=== PATIENT | male | born 1970 | race Caucasian/White ===

== ENCOUNTER 2018-09-01 15:45 | Inpatient (IN) | payer OTHER ==
--- NOTE | 2018-09-01 16:03 | PDOC ---
Rapid Medical Evaluation Chief Complaint: Pain Time Seen by Provider: 09/01/18 15:52 Medical Evaluation: 09/01/18 16:01 I have performed a brief in person evaluation of this patient. The patient's CC: abd pain HPI: Pt has had abd pain since 08/12. He was recently dx with diverticulitis earlier this month. Pt also complains of dysuria. PE: Skin: Clear Heart: RRR Lungs: Clear MS. Moves all extremities without difficulty. Neuro: Alert and oriented Psch: appropriate affect Abd protocol ordered. The patient will proceed to main ED for further evaluation. Discharge Disposition - Diagnosis Abdominal pain Qualifiers: Abdominal location: left lower quadrant Qualified Code(s): R10.32 - Left lower quadrant pain - Referrals - Patient Instructions - Post Discharge Activity
--- NOTE | 2018-09-01 17:05 | PDOC ---
Attending Attestation - HPI HPI: 09/01/18 18:18 The patient is a 48 year old male with a PMH of diverticulitis who presents to the ED with abdominal pain for the past 3 weeks. The patient states the abdominal pain is mainly localized in the left lower quadrant, stabbing in nature, and intermittent. Patient states he was admitted at [facility] for diverticulitis and was discharged home recently. He also reports losing 15-20 lbs. over the past 3 weeks. Patient has had low appetite but has been tolerating PO intake. Denies any associated fevers or chills. Allergies: NKA Past surgical history: None reported. Social history: No reported cigarette use. Daily marijuana. Drinks alcohol daily. PCP: Dr. Hair - Physicial Exam PE: 09/01/18 18:19 ADULT EXAM GENERAL: Awake, alert, and fully oriented, in no acute distress ENT: Auricles normal inspection, hearing grossly normal, nares patent, oropharynx clear without exudates. Moist mucosa (+) Tongue fasciculations. LUNGS: Breath sounds equal, clear to auscultation bilaterally. No wheezes, and no crackles HEART: Regular rate and rhythm, normal S1 and S2, no murmurs, rubs or gallops ABDOMEN: Soft, nontender, normoactive bowel sounds. No guarding, no rebound. No masses EXTREMITIES: Normal range of motion, no edema. No clubbing or cyanosis. No cords, erythema, or tenderness NEUROLOGICAL: Cranial nerves II through XII grossly intact. Normal speech, normal gait SKIN: Warm, Dry, normal turgor, no rashes or lesions noted. <Kassy Sanches - Last Filed: 09/01/18 18:18> - Resident Resident Name: Xander Epsteinica - Medical Decision Making 09/11/18 09:34 Pt presents to the ED complaining of intermittent abdominal pain that has been persistent for greater than one month. Also complaining of weight loss. On exam, he has some mild diffuse abdominal tenderness and is showing signs of ETOH withdrawal. Differential includes diverticulitis with abscess, sepsis, thyroid storm. Will check labs, CT abdomen pelvis, treat for ETOH withdrawal. 09/11/18 09:42 <Rhona Storey - Last Filed: 09/11/18 09:46>
[2018-09-01 17:19] LABS: ALBUMIN 2.9 g/dl (3.4-5.0); ALK PHOS 146 U/L (45-117); ANION GAP 13 MMOL/L (8-16); BILIRUBIN,TOTAL 0.5 mg/dL (0.2-1); BLOOD UREA NITROGEN 11 mg/dL (7-18); CALCIUM 8.6 mg/dL (8.5-10.1); CHLORIDE 89 mmol/L (98-107); CO2 25 mmol/L (21-32); CREATININE 0.5 mg/dL (0.55-1.3); GLUCOSE,RANDOM 83 mg/dL (74-106); LIPASE 162 U/L (73-393); POTASSIUM 4.1 mmol/L (3.5-5.1); SGOT/AST 64 U/L (15-37); SGPT/ALT 55 U/L (13-61); SODIUM 128 mmol/L (136-145); TOT PROT 7.8 g/dl (6.4-8.2)
[2018-09-01 17:26] LABS: BASO % 0.5 % (0-2.0); EOS % 0.3 % (0-4.5); HEMATOCRIT 39.9 % (35.4-49); HEMOGLOBIN 13.9 GM/dL (11.7-16.9); LYMPH % 8.6 % (8-40); MCH 31.3 pg (25.7-33.7); MCHC 34.8 g/dl (32.0-35.9); MEAN CELL VOLUME 89.8 fl (80-96); MEAN PLT VOLUME 10.3 fl (7.5-11.1); MONO % 9.2 % (3.8-10.2); NEUT % 81.4 % (42.8-82.8); PLATELET COUNT 284 K/MM3 (134-434); RBC 4.44 M/mm3 (4.00-5.60); RDW 16.1 % (11.9-15.9); WHITE BLOOD COUNT 12.1 K/mm3 (4.0-10.0)
--- NOTE | 2018-09-01 17:45 | PDOC ---
History of Present Illness - General Chief Complaint: Pain Stated Complaint: SENT BY PCP Time Seen by Provider: 09/01/18 15:52 - History of Present Illness Initial Comments: 09/01/18 17:43 The patient is a 48 year old male with a PMH of diverticulitis who presents to our ED c/o 3 week h/o intermittent abdominal pain. Sister @ bedside assists in history. Pain is intermittent, stabbing, 2-3/10, localized to his LLQ. Denies associated fevers/chills. Tolerating PO intake, though decreased appetite 2/2 to his symptoms last meal with a chocolate milk protein drink this morning. Sister notes 15 pound weight loss over the last month. 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 H/o alcohol (beer and wine with dinner), daily marijuana, denies other toxic habits. Sister @ bedside interviewed separately notes patient has a h/o excessive alcohol consumption since his teenage years, 8 beers daily followed by shots, though he gives up shots for Lent and has no history of withdrawal seizures as far as she know. NKDA Social: reports wine/beer w/dinner 3x weekly, daily marijuana, former smoker 20 + years Surgical: none reported As per EMR, patient has not been evaluated in our ED on prior occasion. Past History - Past Medical History Allergies/Adverse Reactions: Allergies Allergy/AdvReac Type Severity Reaction Status Date / Time No Known Allergies Allergy Verified 09/01/18 16:10 COPD: No - Immunization History Immunization Up to Date: Yes - Suicide/Smoking/Psychosocial Hx Smoking History: Never smoked Have you smoked in the past 12 months: No Information on smoking cessation initiated: No Hx Alcohol Use: No Drug/Substance Use Hx: No Review of Systems - Review of Systems Constitutional: No: Chills, Fever HEENTM: No: Recent change in vision Respiratory: Yes: Shortness of Breath. No: Cough Cardiac (ROS): No: Chest Pain, Lightheadedness, Palpitations, Syncope ABD/GI: No: Constipated, Diarrhea, Nausea, Vomiting : No: Burning, Dysuria Neurological: Yes: Weakness Psychiatric: Yes: Anxiety *Physical Exam - Vital Signs Last Vital Signs Temp Pulse Resp BP Pulse Ox 98.6 F 135 H 20 122/91 96 09/01/18 16:03 09/01/18 16:03 09/01/18 16:03 09/01/18 16:03 09/01/18 16:03 - Physical Exam General Appearance: Yes: Nourished, Thin HEENT: positive: Normal Voice, Hearing Grossly Normal Neck: positive: Trachea midline, Normal Thyroid, Supple Respiratory/Chest: positive: Lungs Clear, Normal Breath Sounds Cardiovascular: positive: S1, S2, Tachycardia. negative: Edema, JVD, Murmur Vascular Pulses: Dorsalis-Pedis (R): 2+, Doralis-Pedis (L): 2+ Gastrointestinal/Abdominal: positive: Normal Bowel Sounds, Soft, Tenderness ( mild LLQ TTP on deep palpation). negative: Distended, Guarding, Rebound, Hernia Musculoskeletal: negative: CVA Tenderness (R), CVA Tenderness (L) Extremity: positive: Normal Capillary Refill, Normal Inspection Integumentary: positive: Normal Color, Dry, Warm Neurologic: positive: Fully Oriented, Alert Moderate Sedation - Procedure Monitoring Vital Signs: Procedure Monitoring Vital Signs Temperature 98.6 F 09/01/18 16:03 Pulse Rate 135 H 09/01/18 16:03 Respiratory Rate 20 09/01/18 16:03 Blood Pressure 122/91 09/01/18 16:03 O2 Sat by Pulse Oximetry (%) 96 09/01/18 16:03 Heart Score/ECG Review - ECG Impressions Comment:: 09/01/18 19:54 Sinus Tachycardia (HR 117) LVH w/o any MARIA L/STD/TWI, poor R wave progression V1- V6 ED Treatment Course - LABORATORY CBC & Chemistry Diagram: 09/01/18 16:16 09/01/18 16:16 - ADDITIONAL ORDERS Additional order review: Laboratory Results 09/01/18 16:16 Sodium 128 L Potassium 4.1 Chloride 89 L Carbon Dioxide 25 Anion Gap 13 BUN 11 Creatinine 0.5 L Creat Clearance w eGFR > 60 Random Glucose 83 Calcium 8.6 Total Bilirubin 0.5 AST 64 H ALT 55 Alkaline Phosphatase 146 H Total Protein 7.8 Albumin 2.9 L Lipase 162 09/01/18 16:16 RBC 4.44 MCV 89.8 MCHC 34.8 RDW 16.1 H MPV 10.3 Neutrophils % 81.4 Lymphocytes % 8.6 Monocytes % 9.2 Eosinophils % 0.3 Basophils % 0.5 Medical Decision Making - Medical Decision Making 09/01/18 18:55 48 year old male with abdominal pain, h/o diverticulitis w/bacteremia earlier this month. Tachycardic (HR 117) @ presentation, other VS unremarkable. PE shows tongue fasiculations. Will treat for presumptive alcohol withdrawal. Also consider Electroylte derangment, Dehydration, Thyroid Storm as etiology of tachycardia. For abdominal pain consider diverticulitis, gastritis, GERD, Will obtain belly labs in addition to abdominal CT (as patient has h/o recent complicated diverticulitis). Reassess. EKG non-ischemic as documented in EKG section of EMR 09/01/18 19:29 Leukocytosis (12.1) - likely reactive Mild hyponatremia - IV fluids hanging AST 64 Troponin (-) 09/01/18 19:55 Patient reassessed @ bedside Remains Tachycardic (110's) - IV fluids hanging 09/01/18 21:37 Case d/w Dr. Phipps - radiology, notes diverticulitis (+/-) abscess (fluid collections with air fluid levels + fat stranding). Will give G(-) and anaerobe coverage w/Metronizadole, Ceftriaxone. Hospitalist microblogged for admission. General surgery paged 09/01/18 21:51 Patient and patient's sister @ bedside counseled on plan of care. Tachycardia improving HR low 100's 09/01/18 22:18 Case d/w Dr. Boo. Will see patient in the morning. Requests NPO at midnight. CT abdomen/pelvis with PO contrast as inpatient. 09/01/18 22:25 Case d/w Dr. Payne (Resident) - accepts patient to hospitalist service. Night team (Drs. Kurtz, Sumit) aware of patient *DC/Admit/Observation/Transfer Diagnosis at time of Disposition: Abdominal pain Qualifiers: Abdominal location: left lower quadrant Qualified Code(s): R10.32 - Left lower quadrant pain - Referrals Referrals: Espinoza Hair [Primary Care Provider] - - Patient Instructions - Post Discharge Activity
[2018-09-01] MEDS ORDERED: chlordiazePOXIDE HCL 25 MG CAPSULE PO ONE (18:14)
[2018-09-01] MEDS ORDERED: SODIUM CHLORIDE 0.9% 500 ML INFUS.BAG IV ONE (18:15)
[2018-09-01] MEDS ORDERED: chlordiazePOXIDE HCL 25 MG CAPSULE ONE (18:47)
[2018-09-01] MEDS ORDERED: PIPERACILLIN/TAZOB 4.5 GM 4.5 GM in DEXTROSE 5%-WATER 100 ML IVPB ONE (21:39)
[2018-09-01] MEDS ORDERED: CEFTRIAXONE 2 GM/100 ML BAG IVPB ONE (22:12)
--- NOTE | 2018-09-01 22:31 | PN ---
Teaching Attending Note Name of Resident: Blaine Payne ATTENDING PHYSICIAN STATEMENT I saw and evaluated the patient. I reviewed the resident's note and discussed the case with the resident. I agree with the resident's findings and plan as documented. SUBJECTIVE: Seen and examined; please refer to resident note for further historical information. Briefly, this is a 48 y/o male presenting to the ER with abdominal pain that has been present for several weeks. Sent in by PCP. Recent admit to [place] for diverticulitis; records in the process of being obtained but we know that he had 2/2 bottles of Gram Negative Rods in his blood; he was on abx as documented in ER while he was inpt there and was DCd on PO though he doesn't know what. The pain he has today is the same he had while at [facility] earlier this month; he came in today as he is frustrated it hasn't gone away and has gradually worsened. He complains of dysuria and also endorses a 15lb weight loss over the last month. He is documented as being drinker; he tells me that he only drinks 3 days a week but the residents inform me his family member tells them that he drinks more than that. CT scan done in the ER shows sigmoid diverticultis with stranding and air-fluid collections suspicious for multiple abscesses due to perferation. ER called Dr. Boo and discussed the case; he will see the patient in the morning. He will be kept NPO, hydrated and given abx, placed on CIWA scale with IV Ativan, and monitored on the medicine service with surgical and ID consult (given the use of Zosyn). Somewhat poor historian. 10 sys ROS done and negative aside from HPI PMH and PSH reviewed FH asked and noncontributory Social history reviewed; per resident note Medications reviewed; reconciliation pending OBJECTIVE: VS, labs, imaging reviewed Labs show WBC 12 and Na 128; AST slightly elevated at 64, Alk Phos 146, TSH wnl , LA wnl, Lipase wnl. UA pending. CT results reviewed; shows multiple diverticula and thickened alls of the mid to distal sigmoid colon consistent with diverticulitis/colitis. Significant stranding of the fat is seen in R-hemipelvis with fluid. Multiple fluid like collections with air-fluid levels are present suspect for abscesses due to perforations. Also some small bowel visuals suspect for ileus is described. Thickening of the terminal ileum wall and thickened cecum and proximal ascending colon also noted. EKG reviewed ASSESSMENT AND PLAN: Patient presents with recurring acute complicated diverticulitis (due to mult abscess likely 2/2 perf); found to be hyponatremic and complains of dysuria. 1) Acute recurrent complicated diverticulitis -Evidenced by history, PE, labs, and imaging. -Initial leukocytosis with neutrophilia, +CT with abscess/perf. Recurrent episode. Consulting sgy; can eval for percutaneous drainag vs. alternative methods -IV Zosyn, consult ID -Will need OP GI referral for scope, etc. 2) Acute Hyponatremia -Check serum/urine osm, urine Na. Empirically on IVF; check BMP to ensure no rapid overcorrection. Assuming this is acute due to issues surrounding #1; followup labs. If worsening consider nephrology consult. 3) Gram Negative Bacteremia -Known from prior admit; getting old records with cx/sn. Continue with Zosyn and consulting ID. 3) Alcohol Abuse -IV thiamine/folate; CIWA protocol with IV Ativan -Outreach Liaison regarding cessation 4) Dysuria -UA pending; check cx 5) Thickened terminal ileum -On IV protonix; monitor for sx when advancing feeds after #1 taken care of 6) Mildly elevated AST -Likely 2/2 EtOH; followup CMP FENA -LR@100 -PRN replete -NPO -As tolerated Consults: Surgery, ID Full Code
[2018-09-01] MEDS ORDERED: SODIUM CHLORIDE 1,000 ML IV SCH (22:45)
--- NOTE | 2018-09-01 23:09 | HP ---
CHIEF COMPLAINT: abdominal pain, GI sent PCP: Dr. Hair (patient knows Dr. Aponte and requests to be placed on his service while admitted) HISTORY OF PRESENT ILLNESS: The patient is a 48 yo m w/ PMH diverticulitis (diagnosed 08/18/18) who comes into the ed c/o a 3 week hx abdominal pain. The patient describes a LLQ abdominal pain which is stabbing in nature, intermittent, and 3/10 in intensity. Patient endorses no alleviating or exacerbating factors. He has been tolerating PO intake with his last meal being a protein milk shake this morning. Despite this, the patient endorses decreased appetite and a 20 lb weight loss over the past 1 month. 2 weeks ago, the patient was seen at [facility] ER for similar complaints and was sent home, but was called back because there was "bacteria in his blood." He was admitted at that time and underwent an unknown abx course. He was discharged and followed up today with a preservationist, Dr. Sanchez, who sent him to the ED. Per patient's sister , he drinks approximately 8 beers and an unknown number of shots daily. Patient states that he has not drank since his discharge, but the sister is unsure if this is true. ER course was notable for: (1) CT AP showing diverticulosis with multiple small fluid collections concerning for abscesses. (2) Surgery consulted from the ED; suggested NPO past midnight, ABX (3) s/p ceftriaxone, flagyl, zosyn in the ED Recent Travel: none PAST MEDICAL HISTORY: see HPI PAST SURGICAL HISTORY: none Social History: Smoking: former smoker Alcohol: see HPI Drugs: daily marijuana smoker Family History: non-contributory Allergies No Known Allergies Allergy (Verified 09/01/18 16:10) HOME MEDICATIONS: REVIEW OF SYSTEMS CONSTITUTIONAL: Absent: fever, chills, diaphoresis, generalized weakness, malaise, loss of appetite, weight change HEENT: Absent: rhinorrhea, nasal congestion, throat pain, throat swelling, difficulty swallowing, mouth swelling, ear pain, eye pain, visual changes CARDIOVASCULAR: Absent: chest pain, syncope, palpitations, irregular heart rate, lightheadedness , peripheral edema RESPIRATORY: Absent: cough, shortness of breath, dyspnea with exertion, orthopnea, wheezing, stridor, hemoptysis GASTROINTESTINAL: Absent: abdominal distension, nausea, vomiting, diarrhea, constipation, melena, hematochezia GENITOURINARY: Absent: dysuria, frequency, urgency, hesitancy, hematuria, flank pain, genital pain MUSCULOSKELETAL: Absent: myalgia, arthralgia, joint swelling, back pain, neck pain SKIN: Absent: rash, itching, pallor HEMATOLOGIC/IMMUNOLOGIC: Absent: easy bleeding, easy bruising, lymphadenopathy, frequent infections ENDOCRINE: Absent: unexplained weight gain, unexplained weight loss, heat intolerance, cold intolerance NEUROLOGIC: Absent: headache, focal weakness or paresthesias, dizziness, unsteady gait, seizure, mental status changes, bladder or bowel incontinence PSYCHIATRIC: Absent: anxiety, depression, suicidal or homicidal ideation, hallucinations. PHYSICAL EXAMINATION Vital Signs - 24 hr 09/01/18 09/01/18 09/01/18 16:03 17:50 17:52 Temperature 98.6 F Pulse Rate 135 H Pulse Rate [ 120 H Apical] Respiratory 20 18 Rate Blood Pressure 122/91 Blood Pressure 141/83 [Right Arm] O2 Sat by Pulse 96 98 97 Oximetry (%) GENERAL: Awake, alert, and fully oriented, in moderate distress. Patient w/ psychomotor agitation expressing frustration at not being in a hospital room HEAD: Normal with no signs of trauma. EYES: Pupils equal, round and reactive to light, extraocular movements intact, sclera anicteric, conjunctiva clear. No lid lag. LUNGS: Breath sounds equal, clear to auscultation bilaterally. No wheezes, and no crackles. No accessory muscle use. HEART: Regular rate and rhythm, normal S1 and S2 without murmur, rub or gallop. ABDOMEN: Soft, not distended, normoactive bowel sounds. mild tenderness to palpation across all 4 quadrants. no guarding, no rebound, no masses. No hepatomegaly or splenomegaly. LOWER EXTREMITIES: 2+ pulses, warm, well-perfused. No calf tenderness. No peripheral edema. NEUROLOGICAL: Cranial nerves II-X intact. Normal speech. SKIN: Warm, dry, normal turgor, no rashes or lesions noted, normal capillary refill. Laboratory Results - last 24 hr 09/01/18 09/01/18 09/01/18 16:16 16:16 17:28 WBC 12.1 H RBC 4.44 Hgb 13.9 Hct 39.9 MCV 89.8 MCH 31.3 MCHC 34.8 RDW 16.1 H Plt Count 284 MPV 10.3 Absolute Neuts (auto) 9.8 H Neutrophils % 81.4 Lymphocytes % 8.6 Monocytes % 9.2 Eosinophils % 0.3 Basophils % 0.5 Nucleated RBC % 0 Sodium 128 L Potassium 4.1 Chloride 89 L Carbon Dioxide 25 Anion Gap 13 BUN 11 Creatinine 0.5 L Creat Clearance w eGFR > 60 Random Glucose 83 Lactic Acid 1.3 Calcium 8.6 Total Bilirubin 0.5 AST 64 H ALT 55 Alkaline Phosphatase 146 H Creatine Kinase 25 L Troponin I < 0.02 Total Protein 7.8 Albumin 2.9 L Lipase 162 TSH 09/01/18 20:30 WBC RBC Hgb Hct MCV MCH MCHC RDW Plt Count MPV Absolute Neuts (auto) Neutrophils % Lymphocytes % Monocytes % Eosinophils % Basophils % Nucleated RBC % Sodium Potassium Chloride Carbon Dioxide Anion Gap BUN Creatinine Creat Clearance w eGFR Random Glucose Lactic Acid Calcium Total Bilirubin AST ALT Alkaline Phosphatase Creatine Kinase Troponin I Total Protein Albumin Lipase TSH 1.74 ASSESSMENT/PLAN: The patient is a 48 yo m w/ PMH diverticulitis who comes into the ED c/o abdominal pain found ot have multiple intra-abdominal abscesses #abdominal pain 2/2 diverticulitis w/ abscess formation and bacteremia -per patient, he had "gram positive cocci in pairs" on blood culture at [place] -s/p ceftriaxone, flagyl, zosyn in ED -c/w zosyn 3.375 q6h IV -surgery consulted from ER -NPO past midnight -full pre op labs in AM -protonix 40mg IV daily -LR @ 100 -must obtain records from previous hospitalization #Possible history of ETOH abuse -pt c/o headache, nervousness, insomnia -initial CIWA approx. 13 -will treat with ativan protocol; 1mg PRN q4h, 2mg q6h olivia -trazodone 50mg HS to assist w/ insomnia -monitor CIWA for signs of withdrawal -1mg folate PO -100mg thiamine PO #FEN -LR @100 -monitor lytes -NPO for possible surgery in AM #prophy -SCDs; holding AC in the event of surgery #Dispo -admit med surg Visit type - Emergency Visit Emergency Visit: Yes ED Registration Date: 09/01/18 Care time: The patient presented to the Emergency Department on the above date and was hospitalized for further evaluation of their emergent condition. - New Patient This patient is new to me today: Yes Date on this admission: 09/02/18 - Critical Care Critical Care patient: No
[2018-09-01] MEDS ORDERED: LORazepam 2 MG/ML SDV VIAL IVPUSH ONE (23:14)
[2018-09-01] MEDS ORDERED: FOLIC ACID 1 MG TABLET (FP) PO ONE (23:16)
[2018-09-01] MEDS ORDERED: THIAMINE HCL 100 MG TABLET (FP) PO ONE (23:16)
[2018-09-02] MEDS: LACTATED RINGERS SOLUTION 1,000 ML/1,000 ML INFUS.BAG IV SCH ×2 (01:01→03:48)
[2018-09-02] MEDS ORDERED: LORazepam 2 MG/ML SDV VIAL ONE (01:04)
[2018-09-02] MEDS ORDERED: THIAMINE HCL 100 MG TABLET (FP) ONE (01:05)
[2018-09-02] MEDS ORDERED: FOLIC ACID 1 MG TABLET (FP) ONE (01:05)
[2018-09-02] MEDS ORDERED: LORazepam 2 MG/ML SDV VIAL IVPUSH PRN (02:05)
[2018-09-02] MEDS ORDERED: PIPERACILLIN/TAZOBACTAM 3.375 GM VIAL IVPB ONE ×4 (03:45→17:56)
[2018-09-02] MEDS ORDERED: DEXTROSE 5%-WATER - 50 ML IVPB ONE ×4 (03:45→17:56)
[2018-09-02] MEDS ORDERED: PIPERACILLIN/TAZOB 3.375 GM 3.375 GM in DEXTROSE 5%-WATER - 50 ML IVPB SCH (04:00)
[2018-09-02 05:50] VITALS: BMI 20.4
[2018-09-02 07:24] LABS: HEMATOCRIT 35.6 % (35.4-49); HEMOGLOBIN 12.5 GM/dL (11.7-16.9); MCH 31.3 pg (25.7-33.7); MEAN CELL VOLUME 89.3 fl (80-96); MEAN PLT VOLUME 10.2 fl (7.5-11.1); PLATELET COUNT 215 K/MM3 (134-434); RBC 3.99 M/mm3 (4.00-5.60); RDW 15.7 % (11.9-15.9)
[2018-09-02 07:36] LABS: INR 1.36 (0.83-1.09); PROTHROMBIN TIME (PATIENT) 16.1 SEC (9.7-13.0)
[2018-09-02 07:39] LABS: ACTIVATED PTT 32.3 SECONDS (25.2-36.5)
[2018-09-02] MEDS ORDERED: SODIUM CHLORIDE 1,000 ML IV STA (08:11)
[2018-09-02 08:17] LABS: ANION GAP 10 MMOL/L (8-16); BLOOD UREA NITROGEN 6 mg/dL (7-18); CALCIUM 7.6 mg/dL (8.5-10.1); CHLORIDE 94 mmol/L (98-107); CO2 23 mmol/L (21-32); CREATININE 0.4 mg/dL (0.55-1.3); GLUCOSE,RANDOM 81 mg/dL (74-106); PHOSPHOROUS 2.7 mg/dL (2.5-4.9); POTASSIUM 3.9 mmol/L (3.5-5.1); SODIUM 127 mmol/L (136-145)
[2018-09-02] MEDS: LORazepam 2 MG/ML SDV VIAL IVPUSH SCH ×2 (08:43→14:09)
--- NOTE | 2018-09-02 09:36 | CON.ID ---
Consult Consult Specialty:: infectious diseases Referred by:: hospitalist Reason for Consultation:: diverticulitis - History of Present Illness Chief Complaint: abd pain History of Present Illness: 48 year old male with a PMH of diverticulitis admitted with h/o of abd pain since aug 11 according to him.patient is a heavy drinker and the patient it seems was in withdrawal this morning patient was given ativan ,currently patient is more lethargic his pain was localized to llq . 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 H/o alcohol (beer and wine with dinner), daily marijuana, denies other toxic habits. currently patient looks very sick - History Source History Provided By: Patient, Medical Record Limitations to Obtaining History: Clinical Condition - Alcohol/Substance Use Hx Alcohol Use: Yes (3 times a week) - Smoking History Smoking history: Never smoked Have you smoked in the past 12 months: No Home Medications - Allergies Allergies/Adverse Reactions: Allergies Allergy/AdvReac Type Severity Reaction Status Date / Time No Known Allergies Allergy Verified 09/01/18 16:10 - Home Medications Home Medications: Ambulatory Orders NK [No Known Home Medication] 09/02/18 Review of Systems Unable to obtain ROS, reason: unable to obtain Physical Exam Vital Signs: Vital Signs Temperature 98.4 F 09/02/18 05:46 Pulse Rate 118 H 09/02/18 05:46 Respiratory Rate 18 09/02/18 05:46 Blood Pressure 145/94 09/02/18 05:46 O2 Sat by Pulse Oximetry (%) 97 09/02/18 05:57 Constitutional: Yes: Calm, Mild Distress, Other HENT: Yes: Other (poor dentition) Neck: Yes: Supple, Trachea Midline Respiratory: Yes: Poor Air Entry Gastrointestinal: Yes: Hypoactive Bowel Sounds, Other Musculoskeletal: Yes: WNL Extremities: Yes: Other Neurological: Yes: Alert, Lethargy Psychiatric: Yes: Alert Labs: CBC, BMP 09/02/18 06:30 09/02/18 06:30 Imaging - Results Cat Scan: Report Reviewed, Image Reviewed Assessment/Plan this patient who comes in with abd and with diagnosis of diverticulitis and in withdrawl and patient on work up found to have abscess in the ct scan currently the patient is lethargic because of probably ativan patient receiving hydration and also on abx diverticulitis abd abscess multiple hyponatremia thin plan repeat ct scan to see if patient has any perforation with contrast continue zosyn iv fluids npo await for cx reports if positive need echo surgery
[2018-09-02] MEDS: PIPERACILLIN/TAZOB 3.375 GM 3.375 GM in DEXTROSE 5%-WATER - 50 ML IVPB SCH ×3 (09:54→17:58)
--- NOTE | 2018-09-02 11:22 | CONSULT ---
- Consultation REQUESTING PROVIDER: CONSULT REQUEST: We have been asked to surgically evaluate the patient for abdominal pain. PCP:Fawad Ulloa HISTORY OF PRESENT ILLNESS: The patient is a 48 yo male who presented to the ER for abd pain. He is a poor historian and gives limited answers today with examination. He came to the ER for increased abdominal pain after being sen by a locks inspector in his office. He states that he had been treated at another facility for diverticular disease and was released on oral antibiotics which he had been taking. No fevers/chills. Had a loose bm todya, non-bloody. No nausea or emesis. Hasn't never had an upper or lower endoscopy. PMHx: alcohol and marijuana abuse, diverticular disease PSHx: denies Home Medications Medication Instructions Recorded NK [No Known Home Medication] 09/02/18 Allergies Allergy/AdvReac Type Severity Reaction Status Date / Time No Known Allergies Allergy Verified 09/01/18 16:10 REVIEW OF SYSTEMS: CONSTITUTIONAL: Absent: fever, chills. Present: weight lose GASTROINTESTINAL: Absent: abdominal pain, abdominal distension, nausea, vomiting, diarrhea, constipation, melena, hematochezia PHYSICAL EXAM: GENERAL: Awake, alert, and fully oriented, appears uncomfortable. LUNGS: Clear to auscultation bilat anteriorly. No wheezes, and no crackles. No accessory muscle use. HEART: Tachycardic with and regular rhythm. No murmurs ABDOMEN: Soft, Guarding to RLQ, no rebound. LLE non-tender LOWER EXTREMITIES: 2+ pulses, warm, well-perfused. No calf tenderness. No peripheral edema. NEUROLOGICAL: Normal speech, gait not observed. PSYCH: Cooperative, with limited response to questions. Poor eye contact. Appropriate mood and affect. Vital Signs Temperature 98.4 F 09/02/18 05:46 Pulse Rate 118 H 09/02/18 05:46 Respiratory Rate 18 09/02/18 05:46 Blood Pressure 145/94 09/02/18 05:46 O2 Sat by Pulse Oximetry (%) 97 09/02/18 05:57 Lab Results WBC 9.0 K/mm3 (4.0-10.0) 09/02/18 06:30 RBC 3.99 M/mm3 (4.00-5.60) L 09/02/18 06:30 Hgb 12.5 GM/dL (11.7-16.9) 09/02/18 06:30 Hct 35.6 % (35.4-49) 09/02/18 06:30 MCV 89.3 fl (80-96) 09/02/18 06:30 MCHC 35.0 g/dl (32.0-35.9) 09/02/18 06:30 RDW 15.7 % (11.9-15.9) 09/02/18 06:30 Plt Count 215 K/MM3 (134-434) D 09/02/18 06:30 Sodium 127 mmol/L (136-145) L 09/02/18 06:30 Potassium 3.9 mmol/L (3.5-5.1) 09/02/18 06:30 Chloride 94 mmol/L (98-107) L 09/02/18 06:30 Carbon Dioxide 23 mmol/L (21-32) 09/02/18 06:30 Anion Gap 10 MMOL/L (8-16) 09/02/18 06:30 BUN 6 mg/dL (7-18) L 09/02/18 06:30 Creatinine 0.4 mg/dL (0.55-1.3) L 09/02/18 06:30 Random Glucose 81 mg/dL (74-106) 09/02/18 06:30 Calcium 7.6 mg/dL (8.5-10.1) L 09/02/18 06:30 INR 1.36 (0.83-1.09) H 09/02/18 06:30 Microbiology Laboratory Tests 09/01/18 17:[address] scan with IV contrast(09/01); thickening of the mid to distal sigmoid, fluid within right hemipelvis. Fat stranding around this area. Multiple fluid collections with air fluid levels. Problem List - Problems (1) Abdominal pain Assessment/Plan: Pt with guarding to the RLQ and evidence of diverticular disease with fat stranding and collections. Spoke with Dr. Boo, ordered a repeat ct scan with oral contrast to help better define the collections and determine if there are any collections which need to be drained. Treated with Zosyn/flagyl and Rocephin. ID consult obtained and will continue Zosyn and await blood/urine culture results. He is npo/ IV hydration. 1 liter bolus given this am. Pt being treated for DTs with ativan/thiamine and could be adding to his tachycardia and well as being septic from an intra-abdominal process. Although lactic acid level normal upon admission. Surgery and Dr. Boo to follow the patient Code(s): R10.9 - UNSPECIFIED ABDOMINAL PAIN Qualifiers: Abdominal location: right lower quadrant Qualified Code(s): R10.31 - Right lower quadrant pain
--- NOTE | 2018-09-02 11:50 | PN ---
Physical Exam: SUBJECTIVE: Patient seen and examined at bedside. Pt still complaining of RLQ pain. Denies nausea/vomiting, isabel/d, chest pain, sob. OBJECTIVE: Vital Signs Temperature 98.4 F 09/02/18 05:46 Pulse Rate 118 H 09/02/18 05:46 Respiratory Rate 18 09/02/18 05:46 Blood Pressure 145/94 09/02/18 05:46 O2 Sat by Pulse Oximetry (%) 97 09/02/18 05:57 GENERAL: AAOx3. NAD. Mild discomfort, laying in bed. HEENT: AT/NC. EOMI. Moist mucus membranes. NECK: Trachea midline, full range of motion, supple. LUNGS: CTA B/L. No wheezes/crackles noted. HEART: RRR. Normal S1, S2. No murmurs noted. ABDOMEN: Soft, TTP RLQ. +distension. tympanic to percussion. EXTREMITIES: 2+ pulses, warm, well-perfused, no edema. NEUROLOGICAL: Cranial nerves II through XII grossly intact. Normal speech, gait not observed. PSYCH: Normal mood, normal affect. CBC, BMP 09/02/18 06:30 09/02/18 06:30 Active Medications Lactated Ringer's (Lactated Ringers Solution) 1,000 ml in 1,000 mls @ 100 mls/ hr IV ASDIR CHEKO Stop: 09/04/18 09:29 Last Admin: 09/02/18 03:48 Dose: 100 mls/hr Piperacillin Sod/Tazobactam (Sod 3.375 gm/ Dextrose) 50 mls @ 100 mls/hr IVPB Q8H-IV CHEKO; Protocol Lorazepam (Ativan Injection -) 2 mg IVPUSH Q6H CHEKO Last Admin: 09/02/18 08:43 Dose: 2 mg Lorazepam (Ativan Injection -) 1 mg IVPUSH Q4H PRN PRN Reason: WITHDRAWAL(CONT SUBST) Last Admin: 09/02/18 03:47 Dose: 1 mg Pantoprazole Sodium (Protonix Iv) 40 mg IVPUSH DAILY [facility] Trazodone HCl (Desyrel -) 50 mg PO HS CHEKO IMAGING: * CTAP: Multiple diverticula and mild thickening of mid to mid distal sigmoid suggestive of colitis/diverticulitis. Findings suspicious for multiple abscesses due to perforations. Thickening of terminal ileum wall. * CTAP w/ oral contrast: 10 x 5 x 3 cm abscess noted interposed between sigmoid colon and urinary bladder. Also 7 x 2.5 x 3 cm abscess within the R paramedian aspect of the mid to upper pelvis ventrally. 4 x 4 x 3 cm smoothly marginated cystic structure within the L inferior pelvis laterally abutting the superior border of the obturator internus muscle. ASSESSMENT/PLAN: 48M w/ PMH diverticulitis who comes into the ED c/o abdominal pain found to have multiple intra-abdominal abscesses. #Acute diverticulitis w/ multiple abscess formation -Per surg, pt scheduled for partial colectomy in AM; family made aware -Zosyn 3.375 gm Q8H IVPB (started 09/02; previously given 1 dose of Flagyl/ Rocephin) -NPO -NS @ 100 -BCx neg x24h, UCx pending #Hypotonic hyponatremia -Na today 127, will repeat Na -cont IVf #ETOH abuse -cont Librium taper (previously on Ativan) #Prophylaxis -hold SQH after midnight for surg tomorrow #FEN -NS @ 100 -recheck lytes (Na) in AM -NPO dispo -full code -cont to monitor on med-surg Visit type - Emergency Visit Emergency Visit: Yes ED Registration Date: 09/01/18 Care time: The patient presented to the Emergency Department on the above date and was hospitalized for further evaluation of their emergent condition. - New Patient This patient is new to me today: Yes Date on this admission: 09/02/18 - Critical Care Critical Care patient: No
[2018-09-02] MEDS: PANTOPRAZOLE SODIUM 40 MG VIAL IVPUSH SCH (12:12)
[2018-09-02] MEDS ORDERED: chlordiazePOXIDE HCL 25 MG CAPSULE PO PRN (12:48)
--- NOTE | 2018-09-02 13:22 | EKG ---
Test Reason : Blood Pressure : / mmHG Vent. Rate : 117 BPM Atrial Rate : 117 BPM P-R Int : 124 ms QRS Dur : 084 ms QT Int : 308 ms P-R-T Axes : 062 052 047 degrees QTc Int : 429 ms SINUS TACHYCARDIA POSSIBLE LEFT ATRIAL ENLARGEMENT LEFT VENTRICULAR HYPERTROPHY ABNORMAL ECG NO PREVIOUS ECGS AVAILABLE Confirmed by BHARGAVI ARIZA, JAMAL ([id number]) on 09/02/2018 1:21:46 PM Referred By: Confirmed By:JAMAL BURK MD
[2018-09-02] MEDS ORDERED: SODIUM CHLORIDE 1,000 ML IV SCH (17:30)
--- NOTE | 2018-09-02 17:44 | PN ---
Teaching Attending Note Name of Resident: Lisa Bullock ATTENDING PHYSICIAN STATEMENT I saw and evaluated the patient. I reviewed the resident's note and discussed the case with the resident. I agree with the resident's findings and plan as documented. SUBJECTIVE:seen at 12:30 pm No fever or chills. Abd pain has improved . no N/V . reports drinking 15 drinks a week. reports being dc on Aug from [place], and when called for + blood cx he was not admitted ( perhaps left AMA ) , and was given 10 days of Abx , which he completed. OBJECTIVE: NAD, dry MM CV: RRR, no mRG Lungs: CTAB Ext : no edema Abd: soft, ND, NL BS , TTP in RLQ and LLQ. ASSESSMENT AND PLAN: 48 y/o man with h/o Alcohol abuse, and recent hospitalization for acute diverticulitis with G neg bacteremia. He presented with worsening abd pain 1- Acute diverticulitis with abscess formation: - case d/w Sx. for partial colectomy tomorrow - cont zosyn - follow repeat blood cx - monitor the cystic structure in L pelvis with imaging - records are being obtained 2- Hyptonic hyponatremia: likely hypovolemic. Urine Na might not reflect correctly as IVF were given before . - repeat Na - change IVF from LR to NS 3- ETOH abuse, change IV ativan to librium taper 4- dysuria on admission, UA was never sent . Urine cx was sent . will follow HLOC start heparin sq hold DVT px after MN for sx
[2018-09-02] MEDS: chlordiazePOXIDE HCL 25 MG CAPSULE PO SCH ×3 (17:59→22:15)
[2018-09-02 18:57] LABS: ANION GAP 10 MMOL/L (8-16); BLOOD UREA NITROGEN 6 mg/dL (7-18); CALCIUM 7.9 mg/dL (8.5-10.1); CHLORIDE 95 mmol/L (98-107); CO2 24 mmol/L (21-32); CREATININE 0.4 mg/dL (0.55-1.3); GLUCOSE,RANDOM 67 mg/dL (74-106); POTASSIUM 3.8 mmol/L (3.5-5.1); SODIUM 129 mmol/L (136-145)
[2018-09-02] MEDS ORDERED: HEPARIN NA (PORCINE) 5,000 UNITS/ML 1ML VIAL SQ SCH (22:00)
[2018-09-02] MEDS ORDERED: traZODone HCL 50 MG TABLET (FP) PO SCH (22:00)
[2018-09-02] MEDS ORDERED: PT OWN MED DRAWER 7, Y5N ONE (23:28)
[2018-09-03] MEDS ORDERED: DEXTROSE 5%-WATER - 50 ML IVPB ONE ×3 (02:04→17:59)
[2018-09-03] MEDS ORDERED: PIPERACILLIN/TAZOBACTAM 3.375 GM VIAL IVPB ONE ×4 (02:04→17:58)
[2018-09-03] MEDS: PIPERACILLIN/TAZOB 3.375 GM 3.375 GM in DEXTROSE 5%-WATER - 50 ML IVPB SCH ×3 (02:09→19:04)
[2018-09-03] MEDS: chlordiazePOXIDE HCL 25 MG CAPSULE PO SCH ×3 (05:05→11:10)
[2018-09-03] MEDS ORDERED: PT OWN MED DRAWER 7, Y5N ONE ×2 (07:42→21:13)
[2018-09-03 08:48] LABS: BASO % 0.4 % (0-2.0); EOS % 1.8 % (0-4.5); HEMATOCRIT 36.7 % (35.4-49); HEMOGLOBIN 12.6 GM/dL (11.7-16.9); LYMPH % 8.4 % (8-40); MCH 31.1 pg (25.7-33.7); MCHC 34.5 g/dl (32.0-35.9); MEAN CELL VOLUME 90.1 fl (80-96); MEAN PLT VOLUME 9.5 fl (7.5-11.1); MONO % 10.6 % (3.8-10.2); NEUT % 78.8 % (42.8-82.8); PLATELET COUNT 208 K/MM3 (134-434); RBC 4.07 M/mm3 (4.00-5.60); RDW 15.4 % (11.9-15.9); WHITE BLOOD COUNT 9.4 K/mm3 (4.0-10.0)
--- NOTE | 2018-09-03 08:57 | PN ---
Teaching Attending Note Name of Resident: Lisa Bullock ATTENDING PHYSICIAN STATEMENT I saw and evaluated the patient. I reviewed the resident's note and discussed the case with the resident. I agree with the resident's findings and plan as documented. SUBJECTIVE: no fever or chills. pain is controlled. slept well. he feels thirsty. OBJECTIVE: NAD, dry MM CV: RRR, no mRG Lungs: CTAB Ext : no edema Abd: soft, ND, NL BS , TTP in RLQ and LLQ. no guarding ASSESSMENT AND PLAN: 48 y/o man with h/o Alcohol abuse, and recent hospitalization for acute diverticulitis with G neg bacteremia. He presented with worsening abd pain 1- Acute diverticulitis with abscess formation: - cont Abx , follow cx - D/w Dr. Boo, will review the CT scan to evaluate the cystic structure seen on CT scan . - obtain records form OSH - for partial colectomy today. This is an intermediate risk procedure, the patient has no cardiac history, and has no signs of CHF, arrhthmias, or ACS. EKG with Nl Qtc and no signs of ischemia, exam reveals no murmurs. he will be at low risk for kartik-OP cardiac complications for this intermediate risk surgery. He has no withdrawal sx at this time and his Na ( pending this am ) , is not dangerously low with no sx. if NA level is around the same level compared to yesterday, then there is no contraindication fro sx. would avoid hypotonic IVF during and after sx 2- Hyptonic hyponatremia: likely hypovolemic. cont IVF . follow labs today. 3- ETOH abuse,cont librium taper 4- dysuria on admission, follow urine cx HLOC hold SQ heparin for sx resume after procedure . D/w Surgical team
[2018-09-03] MEDS: PANTOPRAZOLE SODIUM 40 MG VIAL IVPUSH SCH (09:11)
[2018-09-03 09:26] LABS: ALBUMIN 2.3 g/dl (3.4-5.0); ALK PHOS 99 U/L (45-117); ANION GAP 11 MMOL/L (8-16); BILIRUBIN,TOTAL 0.6 mg/dL (0.2-1); BLOOD UREA NITROGEN 7 mg/dL (7-18); CALCIUM 7.9 mg/dL (8.5-10.1); CHLORIDE 98 mmol/L (98-107); CO2 23 mmol/L (21-32); CREATININE 0.4 mg/dL (0.55-1.3); GLUCOSE,RANDOM 67 mg/dL (74-106); POTASSIUM 3.8 mmol/L (3.5-5.1); SGOT/AST 39 U/L (15-37); SGPT/ALT 39 U/L (13-61); SODIUM 132 mmol/L (136-145); TOT PROT 6.3 g/dl (6.4-8.2)
--- NOTE | 2018-09-03 09:47 | PN ---
Progress Note (short form) - Note Progress Note: Attending Surgeon 48 y/o male w/ perforated diverticulitis and abscess formation who refused attempts at inpatient tx. at another institution on 2 occasions presented here for tx.; w/u revels # intrabdominal collections NOT amenable to IRD after d/w w/ Dr. Baca and persistent pain; have d/w patient and family that open abscess drainage is indicated as well as Hartmans procedure; patient understands he will have a colostomy for some period of time w/the intent of eventual colo- colostomy; informed consent obtained and r/b/t/a's d/w patient and his family. Archie Boo MD FACS
[2018-09-03] MEDS ORDERED: LIDOCAINE HCL/PF 2% SDV 5ML VIAL ONE (09:48)
[2018-09-03] MEDS ORDERED: KETOROLAC TROMETHAMINE 30 MG/1 ML VIAL ONE (09:48)
[2018-09-03] MEDS ORDERED: DEXAMETHASONE SOD PHOSPHATE 4 MG/1 ML VIAL ONE (09:48)
[2018-09-03] MEDS ORDERED: ONDANSETRON 4 MG/2 ML VIAL ONE (09:48)
[2018-09-03] MEDS ORDERED: ROCURONIUM BROMIDE 50 MG/5 ML VIAL ONE ×2 (09:49→10:21)
[2018-09-03] MEDS ORDERED: fentaNYL CITRATE 250 MCG/5 ML VIAL ONE ×2 (09:49→10:37)
[2018-09-03] MEDS ORDERED: PROPOFOL 20 ML ONE (09:49)
[2018-09-03] MEDS ORDERED: MIDAZOLAM HCL 2 MG/2 ML SINGLE DOSE VIAL ONE (10:09)
--- NOTE | 2018-09-03 11:16 | PN ---
Physical Exam: SUBJECTIVE: Patient seen and examined. Family also at bedside. No acute events overnight per night nurse. Pt has minimal abd pain. Denies n/v, cp, sob, urinary /bowel symptoms. OBJECTIVE: Vital Signs Temperature 97.9 F 09/03/18 22:00 Pulse Rate 94 H 09/03/18 22:00 Respiratory Rate 18 09/03/18 22:00 Blood Pressure 145/94 09/03/18 22:00 O2 Sat by Pulse Oximetry (%) 100 09/03/18 21:00 GENERAL: AAOx3. NAD. Comfortable, laying in bed. HEENT: AT/NC. EOMI. Moist mucus membranes. NECK: Trachea midline, full range of motion, supple. LUNGS: CTA B/L. No wheezes/crackles noted. HEART: RRR. Normal S1, S2. No murmurs noted. ABDOMEN: Soft, TTP RLQ. +distension. tympanic to percussion. EXTREMITIES: 2+ pulses, warm, well-perfused, no edema. NEUROLOGICAL: Cranial nerves II through XII grossly intact. Normal speech, gait not observed. PSYCH: Normal mood, normal affect. Laboratory Results - last 24 hr 09/02/18 09/02/18 09/02/18 08:00 10:10 12:40 WBC RBC Hgb Hct MCV MCH MCHC RDW Plt Count MPV Absolute Neuts (auto) Neutrophils % Lymphocytes % Monocytes % Eosinophils % Basophils % Nucleated RBC % Sodium Potassium Chloride Carbon Dioxide Anion Gap BUN Creatinine Creat Clearance w eGFR Random Glucose Calcium Total Bilirubin AST ALT Alkaline Phosphatase Total Protein Albumin Urine Osmolality Cancelled Ur Random Sodium 179 Urine Creatinine Blood Type B POSITIVE Antibody Screen Negative 09/02/18 09/02/18 09/02/18 12:40 12:40 14:15 WBC RBC Hgb Hct MCV MCH MCHC RDW Plt Count MPV Absolute Neuts (auto) Neutrophils % Lymphocytes % Monocytes % Eosinophils % Basophils % Nucleated RBC % Sodium Potassium Chloride Carbon Dioxide Anion Gap BUN Creatinine Creat Clearance w eGFR Random Glucose Calcium Total Bilirubin AST ALT Alkaline Phosphatase Total Protein Albumin Urine Osmolality 514 Ur Random Sodium Cancelled Urine Creatinine Blood Type B POSITIVE Antibody Screen 09/02/18 09/02/18 09/03/18 17:45 18:29 08:15 WBC 9.4 RBC 4.07 Hgb 12.6 Hct 36.7 MCV 90.1 MCH 31.1 MCHC 34.5 RDW 15.4 Plt Count 208 MPV 9.5 Absolute Neuts (auto) 7.4 Neutrophils % 78.8 Lymphocytes % 8.4 Monocytes % 10.6 H Eosinophils % 1.8 D Basophils % 0.4 Nucleated RBC % 0 Sodium 129 L Potassium 3.8 Chloride 95 L Carbon Dioxide 24 Anion Gap 10 BUN 6 L Creatinine 0.4 L Creat Clearance w eGFR > 60 Random Glucose 67 L Calcium 7.9 L Total Bilirubin AST ALT Alkaline Phosphatase Total Protein Albumin Urine Osmolality Ur Random Sodium Urine Creatinine 24.0 L Blood Type Antibody Screen 09/03/18 08:15 WBC RBC Hgb Hct MCV MCH MCHC RDW Plt Count MPV Absolute Neuts (auto) Neutrophils % Lymphocytes % Monocytes % Eosinophils % Basophils % Nucleated RBC % Sodium 132 L Potassium 3.8 Chloride 98 Carbon Dioxide 23 Anion Gap 11 BUN 7 Creatinine 0.4 L Creat Clearance w eGFR > 60 Random Glucose 67 L Calcium 7.9 L Total Bilirubin 0.6 AST 39 H ALT 39 Alkaline Phosphatase 99 Total Protein 6.3 L Albumin 2.3 L Urine Osmolality Ur Random Sodium Urine Creatinine Blood Type Antibody Screen Active Medications Fentanyl (Sublimaze Injection -) 50 mcg IVPUSH [id number] PRN PRN Reason: PAIN-PACU ORDER X 4 DOSES ONLY Stop: 09/04/18 03:00 Last Admin: 09/03/18 14:57 Dose: 50 mcg Hydromorphone HCl (Dilaudid Customer Acquisition Manager -) 10 mg ASSISTANT DIRECTOR OF RESIDENCE LIFE ASSISTANT DIRECTOR OF RESIDENCE LIFE CHEKO; Protocol Stop: 09/10/18 14:36 Last Admin: 09/03/18 15:03 Dose: 10 mg Sodium Chloride (Normal Saline -) 1,000 mls @ 150 mls/hr IV ASDIR CHEKO Last Admin: 09/03/18 16:39 Dose: 0 mls Piperacillin Sod/Tazobactam (Sod 3.375 gm/ Dextrose) 50 mls @ 100 mls/hr IVPB Q8H-IV CHEKO; Protocol Last Admin: 09/03/18 19:04 Dose: 100 mls/hr Lorazepam (Ativan Injection -) 1 mg IVPUSH Q6H PRN PRN Reason: ANXIETY Ondansetron HCl (Zofran Injection) 4 mg IVPUSH Q6H PRN PRN Reason: NAUSEA AND/OR VOMITING Stop: 09/04/18 06:00 Ondansetron HCl (Zofran Injection) 4 mg IVPUSH Q4H PRN PRN Reason: NAUSEA AND/OR VOMITING Stop: 09/04/18 06:00 Pantoprazole Sodium (Protonix Iv) 40 mg IVPUSH DAILY [facility]KO Promethazine HCl (Phenergan Injection -) 12.5 mg IVPB Q6H PRN PRN Reason: NAUSEA AND/OR VOMITING Promethazine HCl (Phenergan Injection -) 12.5 mg IVPUSH Q6H PRN PRN Reason: NAUSEA-FOR RESCUE AFTER 15 MIN IMAGING: * CTAP: Multiple diverticula and mild thickening of mid to mid distal sigmoid suggestive of colitis/diverticulitis. Findings suspicious for multiple abscesses due to perforations. Thickening of terminal ileum wall. * CTAP w/ oral contrast: 10 x 5 x 3 cm abscess noted interposed between sigmoid colon and urinary bladder. Also 7 x 2.5 x 3 cm abscess within the R paramedian aspect of the mid to upper pelvis ventrally. 4 x 4 x 3 cm smoothly marginated cystic structure within the L inferior pelvis laterally abutting the superior border of the obturator internus muscle. ASSESSMENT/PLAN: 48M w/ PMH diverticulitis who comes into the ED c/o abdominal pain found to have multiple intra-abdominal abscesses. #Acute diverticulitis w/ multiple abscess formation -Pt scheduled for partial colectomy/Carissa's procedure today; await surg recs post-op -Zosyn 3.375 gm Q8H IVPB (started 09/02; previously given 1 dose of Flagyl/ Rocephin) -NPO -NS @ 100 -BCx neg x24h, UCx pending -obtain records from recent hospitalization at [facility]; Pt reports having "bacteria in the blood" and was previously on antibiotics #Hypotonic hyponatremia; likely hypovolemic -132 today, improved from 129 yesterday -cont IVf #ETOH abuse -cont Librium taper (previously on Ativan) #Prophylaxis -hold SQH for surg #FEN -NS @ 100 -recheck lytes (Na) in AM -NPO dispo -full code -cont to monitor on med-surg Visit type - Emergency Visit Emergency Visit: Yes ED Registration Date: 09/01/18 Care time: The patient presented to the Emergency Department on the above date and was hospitalized for further evaluation of their emergent condition. - New Patient This patient is new to me today: No - Critical Care Critical Care patient: No
--- NOTE | 2018-09-03 13:41 | PN ---
Progress Note, Physician History of Present Illness: patient post op comfortable - Current Medication List Current Medications: Active Medications Chlordiazepoxide HCl (Librium -) 25 mg PO [id number] CHEKO Stop: 09/04/18 11:01 Chlordiazepoxide HCl (Librium -) 15 mg PO [id number] CHEKO Stop: 09/05/18 11:01 Chlordiazepoxide HCl (Librium -) 25 mg PO Q4H PRN PRN Reason: WITHDRAWAL(CONT SUBST) Stop: 09/05/18 12:47 Last Admin: 09/02/18 14:09 Dose: 25 mg Chlordiazepoxide HCl (Librium -) 10 mg PO [id number] CHEKO Stop: 09/06/18 11:01 Heparin Sodium (Porcine) (Heparin -) 5,000 unit SQ TID [facility] [place] Last Admin: 09/02/18 22:15 Dose: 5,000 unit Piperacillin Sod/Tazobactam (Sod 3.375 gm/ Dextrose) 50 mls @ 100 mls/hr IVPB Q8H-IV CHEKO; Protocol Last Admin: 09/03/18 09:10 Dose: Not Given Sodium Chloride (Normal Saline -) 1,000 mls @ 100 mls/hr IV ASDIR CHEKO Last Admin: 09/02/18 17:59 Dose: 100 mls/hr Pantoprazole Sodium (Protonix Iv) 40 mg IVPUSH DAILY [facility] [place] Last Admin: 09/03/18 09:11 Dose: Not Given Trazodone HCl (Desyrel -) 50 mg PO HS [facility] Last Admin: 09/02/18 22:15 Dose: 50 mg - Objective Vital Signs: Vital Signs Temperature 97.8 F 09/03/18 09:00 Pulse Rate 92 H 09/03/18 09:00 Respiratory Rate 16 09/03/18 09:00 Blood Pressure 143/81 09/03/18 09:00 O2 Sat by Pulse Oximetry (%) 97 09/02/18 05:57 Constitutional: Yes: No Distress, Calm Cardiovascular: Yes: Regular Rate and Rhythm Respiratory: Yes: Regular, CTA Bilaterally Gastrointestinal: Yes: Soft, Other (multiple drain,) Neurological: Yes: Alert, Other Labs: CBC, BMP 09/03/18 08:15 09/03/18 08:15 INR, PTT INR 1.36 (0.83-1.09) H 09/02/18 06:30 Assessment/Plan this patient who comes in with abd and with diagnosis of diverticulitis and in withdrawl and patient on work up found to have abscess in the ct scan currently the patient is lethargic because of probably ativan patient receiving hydration and also on abx diverticulitis abd abscess multiple hyponatremia thin plan kristen continue abx await for cx reports hydration rest as per surgery
[2018-09-03] MEDS ORDERED: NEOSTIGMINE METHYLSULFATE 0.5 MG/1 ML - 10 ML MDV ONE (14:14)
[2018-09-03] MEDS ORDERED: GLYCOPYRROLATE 0.2 MG/1 ML VIAL ONE (14:14)
[2018-09-03] MEDS ORDERED: DEXAMETHASONE SOD PHOSPHATE 4 MG/1 ML VIAL IVPUSH PRN (14:36)
[2018-09-03] MEDS ORDERED: PROMETHAZINE HCL 25 MG/1 ML VIAL IVPUSH PRN ×2 (14:36→15:40)
[2018-09-03] MEDS ORDERED: ONDANSETRON 4 MG/2 ML VIAL IVPUSH PRN ×4 (14:36→15:40)
[2018-09-03] MEDS ORDERED: PROMETHAZINE HCL 25 MG/1 ML VIAL IVPB PRN ×2 (14:36→15:40)
[2018-09-03] MEDS ORDERED: HYDROmorphone *PCA* 10MG/50ML DISP.SYRIN PCA SCH (14:45)
[2018-09-03] MEDS: HYDROmorphone *PCA* 10MG/50ML DISP.SYRIN PCA SCH (15:03)
--- NOTE | 2018-09-03 15:16 | OP ---
Operative Note - Note: Operative Date: 09/03/18 Pre-Operative Diagnosis: Intraabdominal abscesses, perforated diverticulitis Operation: Exploratory laporotomy, Aguilar's procedure, Small bowel excision Post-Operative Diagnosis: Same as Pre-op Surgeon: Archie Boo Woolen Suiting Shrinker: Robert Atkins Anesthesiologist/BACKGROUND CHECK COORDINATOR: Laith Galeana Anesthesia: General Estimated Blood Loss (mls): 125 Fluid Volume Replaced (mls): 3,000 Operative Report Dictated: Yes
--- NOTE | 2018-09-03 15:19 | SURG ---
Surgery Certified Activities Director Note Certified Activities Director: Robert Atkins PA-C Date of Service: 09/03/18 Diagnosis: Intraabdominal abscesses, perforated diverticuliltis Procedure: Exploratory laparotomy, Aguilar's procedure, small bowel excision I was present for the entirety of the operative procedure. For further detail, please refer to operative report.
[2018-09-03] MEDS ORDERED: LORazepam 2 MG/ML SDV VIAL IVPUSH PRN (16:21)
[2018-09-03] MEDS: SODIUM CHLORIDE 1,000 ML IV SCH (16:39)
[2018-09-03] MEDS ORDERED: chlordiazePOXIDE HCL 25 MG CAPSULE PO SCH (17:00)
[2018-09-03] MEDS ORDERED: DEXAMETHASONE SOD PHOSPHATE 4 MG/1 ML VIAL IVPUSH ONE (17:30)
[2018-09-04] MEDS ORDERED: DEXTROSE 5%-WATER - 50 ML IVPB ONE ×3 (01:29→17:14)
[2018-09-04] MEDS ORDERED: PIPERACILLIN/TAZOBACTAM 3.375 GM VIAL IVPB ONE ×3 (01:29→17:14)
[2018-09-04] MEDS: PIPERACILLIN/TAZOB 3.375 GM 3.375 GM in DEXTROSE 5%-WATER - 50 ML IVPB SCH ×3 (01:36→17:29)
[2018-09-04] MEDS: SODIUM CHLORIDE 1,000 ML IV SCH ×3 (03:05→17:40)
--- NOTE | 2018-09-04 09:05 | PN ---
Progress Note, Physician History of Present Illness: patient stable sitting in chair no specific complaint post op drains draining - Current Medication List Current Medications: Active Medications Hydromorphone HCl (Dilaudid Lot Boss -) 10 mg COMMISSARY ASSISTANT COMMISSARY ASSISTANT CHEKO; Protocol Stop: 09/10/18 14:36 Last Admin: 09/03/18 15:03 Dose: 10 mg Sodium Chloride (Normal Saline -) 1,000 mls @ 150 mls/hr IV ASDIR CHEKO Last Admin: 09/04/18 03:05 Dose: 150 mls/hr Piperacillin Sod/Tazobactam (Sod 3.375 gm/ Dextrose) 50 mls @ 100 mls/hr IVPB Q8H-IV CHEKO; Protocol Last Admin: 09/04/18 01:36 Dose: 100 mls/hr Lorazepam (Ativan Injection -) 1 mg IVPUSH Q6H PRN PRN Reason: ANXIETY Pantoprazole Sodium (Protonix Iv) 40 mg IVPUSH DAILY [facility] Promethazine HCl (Phenergan Injection -) 12.5 mg IVPB Q6H PRN PRN Reason: NAUSEA AND/OR VOMITING Promethazine HCl (Phenergan Injection -) 12.5 mg IVPUSH Q6H PRN PRN Reason: NAUSEA-FOR RESCUE AFTER 15 MIN - Objective Vital Signs: Vital Signs Temperature 99.7 F H 09/04/18 06:00 Pulse Rate 113 H 09/04/18 06:00 Respiratory Rate 18 09/04/18 06:00 Blood Pressure 151/96 09/04/18 06:00 O2 Sat by Pulse Oximetry (%) 100 09/03/18 21:00 Constitutional: Yes: No Distress, Calm Neck: Yes: Supple, Trachea Midline Cardiovascular: Yes: Regular Rate and Rhythm Respiratory: Yes: Regular, CTA Bilaterally Gastrointestinal: Yes: Other (drain in abscess,absent bowel sounds) Musculoskeletal: Yes: Other Extremities: Yes: WNL Neurological: Yes: Alert, Oriented Psychiatric: Yes: Alert, Oriented Labs: CBC, BMP 09/03/18 08:15 09/03/18 08:15 INR, PTT INR 1.36 (0.83-1.09) H 09/02/18 06:30 Assessment/Plan t diverticulitis abd abscess multiple hyponatremia thin etoh abuse plan continue abx await for cx report hydration rest as per surgery
[2018-09-04 09:46] LABS: BASO % 0.4 % (0-2.0); EOS % 0.1 % (0-4.5); HEMATOCRIT 34.2 % (35.4-49); HEMOGLOBIN 11.9 GM/dL (11.7-16.9); LYMPH % 6.3 % (8-40); MCH 31.1 pg (25.7-33.7); MCHC 34.8 g/dl (32.0-35.9); MEAN CELL VOLUME 89.3 fl (80-96); MEAN PLT VOLUME 9.6 fl (7.5-11.1); MONO % 7.3 % (3.8-10.2); NEUT % 85.9 % (42.8-82.8); PLATELET COUNT 307 K/MM3 (134-434); RBC 3.83 M/mm3 (4.00-5.60); WHITE BLOOD COUNT 17.3 K/mm3 (4.0-10.0)
[2018-09-04] MEDS: PANTOPRAZOLE SODIUM 40 MG VIAL IVPUSH SCH (10:28)
[2018-09-04 10:49] LABS: ANION GAP 11 MMOL/L (8-16); BLOOD UREA NITROGEN 9 mg/dL (7-18); CALCIUM 7.6 mg/dL (8.5-10.1); CHLORIDE 104 mmol/L (98-107); CO2 21 mmol/L (21-32); CREATININE 0.5 mg/dL (0.55-1.3); GLUCOSE,RANDOM 99 mg/dL (74-106); POTASSIUM 4.5 mmol/L (3.5-5.1); SODIUM 135 mmol/L (136-145)
--- NOTE | 2018-09-04 11:04 | PN ---
Progress Note (short form) - Note Progress Note: Pt day 1 s/p Aguilar's procedure for perforated diverticulitis. Pain in well controlled with ELEMENTARY SCHOOL TEACHER, will continue ELEMENTARY SCHOOL TEACHER for now. Pt expressed a desire to eat and drink; informed pt that surgical team will discuss with him. No anesthetic issues/complications.
--- NOTE | 2018-09-04 11:57 | ECHO ---
Version: 1 Name: VIVIAN HERRERA Exam: Adult Echocardiogram Study Date: 09/04/2018, 10:32 AM Age: 48 Years MMode/2D Measurements & Calculations IVSd: 1.34 cm LVIDs: 3.4 cm LVIDd: 4.3 cm LVPWd: 1.79 cm ACS: 1.92 cm Doppler Measurements & Calculations Lat Peak E' Angel: 16.3 cm/sec Med Peak E' Angel: 14.3 cm/sec Procedure The study was technically difficult with many images being suboptimal in quality. Left Ventricle Left ventricular systolic function is grossly normal. Ejection Fraction = 50-55%. Right Ventricle The right ventricle is normal in size and function. Atria Normal left and right atrial size and function. Mitral Valve There is mild mitral annular calcification. There is no mitral valve stenosis. There is mild mitral regurgitation. Tricuspid Valve The tricuspid valve is normal in structure and function. There is mild tricuspid regurgitation. Aortic Valve There is mild aortic sclerosis.;. No hemodynamically significant valvular aortic stenosis. No aortic regurgitation is present. Pulmonic Valve The pulmonic valve is not well seen, but is grossly normal. Great Vessels The aortic root is normal size. Pericardium/Pleura There is no pericardial effusion. Summary Statements The study was technically difficult with many images being suboptimal in quality. Left ventricular systolic function is grossly normal. Ejection Fraction = 50-55%. The right ventricle is normal in size and function. There is mild mitral annular calcification. There is mild mitral regurgitation. There is mild tricuspid regurgitation. There is no pericardial effusion. MD Hunter *Roc 09/04/2018, 11:57 AM Ordering Physician: DELORIS FARRIS Performed By: Suly Castro
[2018-09-04] MEDS: HEPARIN NA (PORCINE) 5,000 UNITS/ML 1ML VIAL SQ SCH ×2 (13:30→21:30)
--- NOTE | 2018-09-04 13:31 | PN ---
Physical Exam: SUBJECTIVE: Patient seen and examined at bedside. Feels anxious because he hasn' t been walking due to medical equipment connected to him. Minimal abdominal pain. Has not had flatus or BM. Denies chest pain, sob, urinary symptoms. OBJECTIVE: Vital Signs Temperature 99.7 F H 09/04/18 06:00 Pulse Rate 113 H 09/04/18 06:00 Respiratory Rate 18 09/04/18 06:00 Blood Pressure 151/96 09/04/18 06:00 O2 Sat by Pulse Oximetry (%) 100 09/03/18 21:00 GENERAL: AAOx3. NAD. Comfortable, laying in bed. HEENT: AT/NC. EOMI. Moist mucus membranes. NECK: Trachea midline, full range of motion, supple. LUNGS: CTA B/L. No wheezes/crackles noted. HEART: RRR. Normal S1, S2. No murmurs noted. ABDOMEN: Soft, ostomy back in place. Surgical dressing c/d/i. No visible blood noted. EXTREMITIES: 2+ pulses, warm, well-perfused, no edema. NEUROLOGICAL: Cranial nerves II through XII grossly intact. Normal speech, gait not observed. PSYCH: Normal mood, normal affect. CBC, BMP 09/04/18 08:49 09/04/18 08:49 Active Medications Heparin Sodium (Porcine) (Heparin -) 5,000 unit SQ TID CHEKO Hydromorphone HCl (Dilaudid Feeder Loader -) 10 mg POTASH FLAKER POTASH FLAKER CHEKO; Protocol Stop: 09/10/18 14:36 Last Admin: 09/03/18 15:03 Dose: 10 mg Sodium Chloride (Normal Saline -) 1,000 mls @ 150 mls/hr IV ASDIR CHEKO Last Admin: 09/04/18 03:05 Dose: 150 mls/hr Piperacillin Sod/Tazobactam (Sod 3.375 gm/ Dextrose) 50 mls @ 100 mls/hr IVPB Q8H-IV CHEKO; Protocol Last Admin: 09/04/18 10:28 Dose: 100 mls/hr Lorazepam (Ativan Injection -) 1 mg IVPUSH Q6H PRN PRN Reason: ANXIETY Pantoprazole Sodium (Protonix Iv) 40 mg IVPUSH DAILY CHEKO Last Admin: 09/04/18 10:28 Dose: 40 mg Promethazine HCl (Phenergan Injection -) 12.5 mg IVPB Q6H PRN PRN Reason: NAUSEA AND/OR VOMITING Promethazine HCl (Phenergan Injection -) 12.5 mg IVPUSH Q6H PRN PRN Reason: NAUSEA-FOR RESCUE AFTER 15 MIN IMAGING: * CTAP: Multiple diverticula and mild thickening of mid to mid distal sigmoid suggestive of colitis/diverticulitis. Findings suspicious for multiple abscesses due to perforations. Thickening of terminal ileum wall. * CTAP w/ oral contrast: 10 x 5 x 3 cm abscess noted interposed between sigmoid colon and urinary bladder. Also 7 x 2.5 x 3 cm abscess within the R paramedian aspect of the mid to upper pelvis ventrally. 4 x 4 x 3 cm smoothly marginated cystic structure within the L inferior pelvis laterally abutting the superior border of the obturator internus muscle. ASSESSMENT/PLAN: 48M w/ PMH diverticulitis who comes into the ED c/o abdominal pain found to have multiple intra-abdominal abscesses. #Acute diverticulitis w/ multiple abscess formation; s/p partial colectomy/ Carissa's procedure, POD#1 -Zosyn 3.375 gm Q8H IVPB (started 09/02; previously given 1 dose of Flagyl/ Rocephin) -NPO until ostomy bag shows function -NS @ 150 -BCx neg x48h, UCx neg, Abscess cx +Proteus species, Alpha hemolyticus strep, NLFGNB -According to records at [facility], pt was found to be bacteremic with cultures + Enterococcus avium and +Bacteroides fragilis. Pt had been contacted several times by the physicians that he needs to be hospitalized and properly treated, however pt refused. Per previous [facility] records, he was treated with FLagyl and Cipro. #Hypotonic hyponatremia; likely hypovolemic -135 today, improved from 132 yesterday -cont IVf #ETOH abuse -Since pt cannot take PO at this time, will do IV Ativan 1mg Q6H PRN for agitation #Prophylaxis -SQH/early ambulation #FEN -NS @ 150 -recheck lytes (Na) in AM -NPO dispo -full code -cont to monitor on med-surg Visit type - Emergency Visit Emergency Visit: Yes ED Registration Date: 09/01/18 Care time: The patient presented to the Emergency Department on the above date and was hospitalized for further evaluation of their emergent condition. - New Patient This patient is new to me today: No - Critical Care Critical Care patient: No
[2018-09-04] MEDS: HYDROmorphone *PCA* 10MG/50ML DISP.SYRIN PCA SCH (17:00)
[2018-09-04] MEDS ORDERED: chlordiazePOXIDE 5 MG CAPSULE PO SCH (17:00)
--- NOTE | 2018-09-04 17:32 | PN ---
Teaching Attending Note Name of Resident: Radha Polanco ATTENDING PHYSICIAN STATEMENT I saw and evaluated the patient. I reviewed the resident's note and discussed the case with the resident. I agree with the resident's findings and plan as documented. SUBJECTIVE: No fever or chills. minimal abd pain, very thirsty and wants to eat. OBJECTIVE: NAD, dry MM CV: RRR, no mRG Lungs: CTAB Ext: no edema Abd: soft, ND, nl BS , mid line surgical dressing with 2 drainages ASSESSMENT AND PLAN: 48 y/o man with h/o Alcohol abuse, and recent hospitalization for acute diverticulitis with G neg bacteremia. He presented with worsening abd pain 1- Acute diverticulitis with abscess formation: s/p Aguilar procedure. - surgical cx with 3 different organisms on prelim report, covered by zosyn - cont abx for now pending final cx - strict NPO - INSULATION WORKER APPRENTICE for pain control 2- Hyptonic hyponatremia: due to hypovolemia. cont IVF 3- ETOH abuse. due to atrict NPO status, cont with IV ativan . will decrease dose tomorrow HLOC resume DVT px
[2018-09-05] MEDS ORDERED: PIPERACILLIN/TAZOBACTAM 3.375 GM VIAL IVPB ONE ×2 (01:49→10:16)
[2018-09-05] MEDS ORDERED: DEXTROSE 5%-WATER - 50 ML IVPB ONE ×2 (01:49→10:16)
[2018-09-05] MEDS: PIPERACILLIN/TAZOB 3.375 GM 3.375 GM in DEXTROSE 5%-WATER - 50 ML IVPB SCH ×2 (02:01→10:25)
[2018-09-05] MEDS: HEPARIN NA (PORCINE) 5,000 UNITS/ML 1ML VIAL SQ SCH ×3 (06:49→22:18)
[2018-09-05 07:28] LABS: HEMATOCRIT 32.5 % (35.4-49); HEMOGLOBIN 11.4 GM/dL (11.7-16.9); MCH 31.2 pg (25.7-33.7); MCHC 35.2 g/dl (32.0-35.9); MEAN CELL VOLUME 88.8 fl (80-96); MEAN PLT VOLUME 9.2 fl (7.5-11.1); PLATELET COUNT 267 K/MM3 (134-434); RBC 3.66 M/mm3 (4.00-5.60); RDW 16.3 % (11.9-15.9); WHITE BLOOD COUNT 11.4 K/mm3 (4.0-10.0)
[2018-09-05 08:30] LABS: ALBUMIN 1.8 g/dl (3.4-5.0); ALK PHOS 74 U/L (45-117); ANION GAP 9 MMOL/L (8-16); BILIRUBIN,TOTAL 0.4 mg/dL (0.2-1); BLOOD UREA NITROGEN 6 mg/dL (7-18); CALCIUM 7.5 mg/dL (8.5-10.1); CHLORIDE 100 mmol/L (98-107); CO2 25 mmol/L (21-32); CREATININE 0.4 mg/dL (0.55-1.3); GLUCOSE,RANDOM 69 mg/dL (74-106); POTASSIUM 3.7 mmol/L (3.5-5.1); SGOT/AST 19 U/L (15-37); SGPT/ALT 20 U/L (13-61); SODIUM 134 mmol/L (136-145)
--- NOTE | 2018-09-05 09:35 | PN ---
Progress Note (short form) - Note Progress Note: Patient stable and has pain score of 3-4/10.Will continue SCREENER AND BLENDER OPERATOR today as patient still is NPO.Will f/u tomorrow.
--- NOTE | 2018-09-05 10:00 | PN ---
Progress Note (short form) - Note Progress Note: Attending Surgeon POD #2 Has # c/o's; wants to eat; wants leave; o/w OK; voiding well.. VSS AF abdo-tympanitic but not distended; incision open and wound care in progress; TATO drains serous extrems-no calf tenderness; no edema. WBC11.7 Intraabdominal abscess growing Proteus ESBL IMP:doing well PLAN: OOB/NPO/IVF/IVABS?wound and drain care/ID f/u; await ostomy function to feed. Archie Boo MD FACS
[2018-09-05] MEDS: PANTOPRAZOLE SODIUM 40 MG VIAL IVPUSH SCH (10:25)
[2018-09-05] MEDS ORDERED: ERTAPENEM SODIUM 1 GM/50 ML PRE-DOCKED IVPB SCH (11:15)
--- NOTE | 2018-09-05 12:09 | PN ---
Progress Note, Physician History of Present Illness: patient stable no new issues drain draining cx reports noted - Current Medication List Current Medications: Active Medications Heparin Sodium (Porcine) (Heparin -) 5,000 unit SQ TID [facility] Last Admin: 09/05/18 06:49 Dose: 5,000 unit Hydromorphone HCl (Dilaudid Patient Support Associate -) 10 mg MANAGER CAREER MANAGER CAREER [facility]; Protocol Stop: 09/10/18 14:36 Last Admin: 09/04/18 17:00 Dose: Not Given Sodium Chloride (Normal Saline -) 1,000 mls @ 150 mls/hr IV ASDIR [facility] Last Admin: 09/04/18 17:40 Dose: 150 mls/hr Ertapenem 1 gm/ Sodium (Chloride) 50 mls @ 100 mls/hr IVPB DAILY [facility] Lorazepam (Ativan Injection -) 1 mg IVPUSH Q6H PRN PRN Reason: ANXIETY Pantoprazole Sodium (Protonix Iv) 40 mg IVPUSH DAILY [facility] Last Admin: 09/05/18 10:25 Dose: 40 mg Promethazine HCl (Phenergan Injection -) 12.5 mg IVPB Q6H PRN PRN Reason: NAUSEA AND/OR VOMITING Promethazine HCl (Phenergan Injection -) 12.5 mg IVPUSH Q6H PRN PRN Reason: NAUSEA-FOR RESCUE AFTER 15 MIN - Objective Vital Signs: Vital Signs Temperature 97.4 F L 09/05/18 07:18 Pulse Rate 106 H 09/05/18 07:18 Respiratory Rate 20 09/05/18 07:18 Blood Pressure 158/99 09/05/18 07:18 O2 Sat by Pulse Oximetry (%) 98 09/04/18 21:00 Constitutional: Yes: No Distress, Calm, Thin Cardiovascular: Yes: Regular Rate and Rhythm Respiratory: Yes: Regular, CTA Bilaterally Gastrointestinal: Yes: Soft, Other (drain present) Musculoskeletal: Yes: WNL Extremities: Yes: WNL Wound/Incision: Yes: Dressing Dry and Intact Neurological: Yes: Alert, Oriented Psychiatric: Yes: Alert, Oriented Labs: CBC, BMP 09/05/18 07:00 09/05/18 07:00 INR, PTT INR 1.36 (0.83-1.09) H 09/02/18 06:30 Assessment/Plan t diverticulitis abd abscess multiple hyponatremia thin etoh abuse plan cx reports noted ertapenam to continue hydration rst as per surgery
--- NOTE | 2018-09-05 13:20 | EKG ---
Test Reason : Blood Pressure : / mmHG Vent. Rate : 070 BPM Atrial Rate : 192 BPM P-R Int : 000 ms QRS Dur : 086 ms QT Int : 390 ms P-R-T Axes : 260 -23 -20 degrees QTc Int : 421 ms ATRIAL FLUTTER WITH VARIABLE A-V BLOCK INFERIOR INFARCT , AGE UNDETERMINED ABNORMAL ECG WHEN COMPARED WITH ECG OF 01-SEP-2018 17:25, ATRIAL FLUTTER HAS REPLACED SINUS RHYTHM VENT. RATE HAS DECREASED BY 47 BPM INFERIOR INFARCT IS NOW PRESENT Confirmed by HENRIETTA BROOKS MD ([id number]) on 09/05/2018 1:20:24 PM Referred By: Confirmed By:HENRIETTA BROOKS MD
[2018-09-05] MEDS: SODIUM CHLORIDE 1,000 ML IV SCH (13:27)
--- NOTE | 2018-09-05 13:34 | PN ---
Physical Exam: SUBJECTIVE: Patient seen and examined at bedside. No acute complaints. Walked to bathroom. Ng out. Urinated spontaneously. b/l TATO draining. Colostomy draining. OBJECTIVE: Vital Signs Period Temp Pulse Resp BP Sys/Yañez Pulse Ox Last 24 Hr 97.4 F-98.3 F 94-108 18-20 128-158/75-99 98 GENERAL: A&Ox3, no acute distress EYES: PERRLA, EOMI ENT: Moist mucus membranes NECK: No JVD LUNGS: CTA, no wheezes HEART: RRR, no murmurs ABDOMEN: Soft, nontender, BS diminished. b/l TATO drains draining serosanguinous fluid. Colostomy in place draining 150-200cc serosanguinous fluid. MUSCULOSKELETAL: No CVA Tenderness EXTREMITIES: 2+ pulses, no edema. NEUROLOGICAL: Cranial nerves II-XII intact. Laboratory Results - last 24 hr 09/05/18 09/05/18 07:00 07:00 WBC 11.4 H RBC 3.66 L Hgb 11.4 L Hct 32.5 L MCV 88.8 MCH 31.2 MCHC 35.2 RDW 16.3 H Plt Count 267 MPV 9.2 Sodium 134 L Potassium 3.7 Chloride 100 Carbon Dioxide 25 Anion Gap 9 BUN 6 L Creatinine 0.4 L Creat Clearance w eGFR > 60 Random Glucose 69 L Calcium 7.5 L Total Bilirubin 0.4 AST 19 ALT 20 Alkaline Phosphatase 74 Total Protein 5.0 L Albumin 1.8 L Active Medications Generic Name Dose Route Start Last Admin Trade Name Freq PRN Reason Stop Dose Admin Heparin Sodium (Porcine) 5,000 unit 09/04/18 14:00 09/05/18 06:49 Heparin - SQ 5,000 unit TID CHEKO Administration Hydromorphone HCl 10 mg 09/03/18 15:40 09/04/18 17:00 Dilaudid Concrete Batching Plant Operator - PROOF TESTER 09/10/18 14:36 Not Given PROOF TESTER CHEKO Protocol Sodium Chloride 1,000 mls @ 150 mls/hr 09/03/18 15:40 09/04/18 17:40 Normal Saline - IV 150 mls/hr ASDIR CHEKO Administration Ertapenem 1 gm/ Sodium 50 mls @ 100 mls/hr 09/05/18 11:15 Chloride IVPB DAILY CHEKO Lorazepam 1 mg 09/03/18 16:21 Ativan Injection - IVPUSH Q6H PRN ANXIETY Pantoprazole Sodium 40 mg 09/04/18 10:00 09/05/18 10:25 Protonix Iv IVPUSH 40 mg DAILY CHEKO Administration Promethazine HCl 12.5 mg 09/03/18 15:40 Phenergan Injection - IVPB Q6H PRN NAUSEA AND/OR VOMITING Promethazine HCl 12.5 mg 09/03/18 15:40 Phenergan Injection - IVPUSH Q6H PRN NAUSEA-FOR RESCUE AFTER 15 MIN Microbiology ASSESSMENT/PLAN: 48M w/ PMH diverticulitis who comes into the ED c/o abdominal pain found to have multiple intra-abdominal abscesses. #Acute diverticulitis w/ multiple abscess formation; s/p partial colectomy/ Carissa's procedure, POD#2 -cultures positive for ESBL proteus and alpha hemolytic strep -switch to ertapenem day 1 today -NPO until ostomy bag shows function -NS @ 150 -According to records at [facility], pt was found to be bacteremic with cultures + Enterococcus avium and +Bacteroides fragilis. Pt had been contacted several times by the physicians that he needs to be hospitalized and properly treated, however pt refused. Per previous [facility] records, he was treated with FLagyl and Cipro. #Hypotonic hyponatremia:improving, 134 today -continue IVNS #ETOH abuse -Since pt cannot take PO at this time, will do IV Ativan 1mg Q6H PRN for agitation #Prophylaxis -SQH/early ambulation #FEN -NS @ 150 -recheck sunita (Na) in AM -NPO dispo -full code -cont to monitor on med-surg Visit type - Emergency Visit Emergency Visit: No - New Patient This patient is new to me today: No - Critical Care Critical Care patient: No
[2018-09-05] MEDS ORDERED: LORazepam 2 MG/ML SDV VIAL IVPUSH PRN (14:43)
--- NOTE | 2018-09-05 14:44 | PN ---
Teaching Attending Note Name of Resident: Laith Cox ATTENDING PHYSICIAN STATEMENT I saw and evaluated the patient. I reviewed the resident's note and discussed the case with the resident. I agree with the resident's findings and plan as documented. SUBJECTIVE: No fever or chills . Wants to eat . Abd pain is well controlled on BENCH HAND MACHINE OBJECTIVE: NAD, MMM CV: RRR, no MRG Lungs: CTAB Ext: no edema Abd: soft, ND, nl BS , mid line surgical dressing with 2 drainages . Tenderness to palpation in all quadrants. ASSESSMENT AND PLAN: 48 y/o man with h/o Alcohol abuse, and recent hospitalization for acute diverticulitis with G neg bacteremia. He presented with worsening abd pain 1- Acute diverticulitis with abscess formation: s/p Aguilar procedure. - surgical cx with ESBL producing proteus with strep species . dc zosyn and start ertapenem - strict NPO - BENCH HAND MACHINE for pain control - Of note ,pre OSH records from [place], he was called to go back after dc due to Enterobacter Avium bacteremia but he refused. - echo with no vegetations and repeat blood cx here with no growth 2- Hyptonic hyponatremia: due to hypovolemia. cont IVF 3- ETOH abuse. Cont IV ativan PRN for withdrawal sx only . decrease dose to 0.5 mg HLOC resume DVT px
[2018-09-05] MEDS: ERTAPENEM SODIUM 1 GM in SODIUM CHLORIDE 50 ML IVPB SCH (14:46)
[2018-09-05] MEDS: HYDROmorphone *PCA* 10MG/50ML DISP.SYRIN PCA SCH (16:00)
[2018-09-05] MEDS ORDERED: chlordiazePOXIDE HCL 10 MG CAPSULE PO SCH (17:00)
[2018-09-06] MEDS: HEPARIN NA (PORCINE) 5,000 UNITS/ML 1ML VIAL SQ SCH ×3 (05:59→21:37)
[2018-09-06 07:10] LABS: HEMATOCRIT 31.8 % (35.4-49); HEMOGLOBIN 11.4 GM/dL (11.7-16.9); MCH 31.8 pg (25.7-33.7); MCHC 35.9 g/dl (32.0-35.9); MEAN CELL VOLUME 88.4 fl (80-96); MEAN PLT VOLUME 9.3 fl (7.5-11.1); PLATELET COUNT 286 K/MM3 (134-434); RDW 15.9 % (11.9-15.9); WHITE BLOOD COUNT 9.7 K/mm3 (4.0-10.0)
[2018-09-06 07:33] LABS: ALBUMIN 1.8 g/dl (3.4-5.0); ALK PHOS 68 U/L (45-117); ANION GAP 10 MMOL/L (8-16); BILIRUBIN,TOTAL 0.4 mg/dL (0.2-1); BLOOD UREA NITROGEN 5 mg/dL (7-18); CALCIUM 7.3 mg/dL (8.5-10.1); CHLORIDE 102 mmol/L (98-107); CO2 24 mmol/L (21-32); CREATININE 0.2 mg/dL (0.55-1.3); GLUCOSE,RANDOM 63 mg/dL (74-106); MAGNESIUM 1.9 mg/dL (1.8-2.4); PHOSPHOROUS 3.1 mg/dL (2.5-4.9); POTASSIUM 3.7 mmol/L (3.5-5.1); SGOT/AST 18 U/L (15-37); SGPT/ALT 20 U/L (13-61); SODIUM 136 mmol/L (136-145); TOT PROT 5.4 g/dl (6.4-8.2)
[2018-09-06] MEDS ORDERED: PT OWN MED DRAWER 7, Y5N ONE (10:18)
[2018-09-06] MEDS: ERTAPENEM SODIUM 1 GM in SODIUM CHLORIDE 50 ML IVPB SCH (10:34)
[2018-09-06] MEDS: SODIUM CHLORIDE 1,000 ML IV SCH ×3 (10:34→21:37)
[2018-09-06] MEDS: PANTOPRAZOLE SODIUM 40 MG VIAL IVPUSH SCH (10:35)
[2018-09-06] MEDS ORDERED: amLODIPine BESYLATE 5 MG TABLET (FP) PO SCH (11:00)
--- NOTE | 2018-09-06 11:14 | PN ---
Progress Note (short form) - Note Progress Note: Attending Surgeon POD#3 Wants to eat; o/w w/o complaint VSS AF abdo-soft; minimally tympantic and not tender; drains completely serous and output noted; wound care in progress WBC-wnl IMP: stable post op PLAN: Continue present tx; await return of bowel function. Archie Boo MD FACS
--- NOTE | 2018-09-06 11:28 | PN ---
Progress Note, Physician History of Present Illness: patient stable no new issues surgery following - Current Medication List Current Medications: Active Medications Amlodipine Besylate (Norvasc -) 5 mg PO DAILY [facility] Last Admin: 09/06/18 11:26 Dose: 5 mg Heparin Sodium (Porcine) (Heparin -) 5,000 unit SQ TID [facility] Last Admin: 09/06/18 05:59 Dose: 5,000 unit Hydromorphone HCl (Dilaudid Ripening Room Hand -) 10 mg ASPHALT MACHINE OPERATOR ASPHALT MACHINE OPERATOR [facility]; Protocol Stop: 09/10/18 14:36 Last Admin: 09/05/18 16:00 Dose: Not Given Ertapenem 1 gm/ Sodium (Chloride) 50 mls @ 100 mls/hr IVPB DAILY [facility] Last Admin: 09/06/18 10:34 Dose: 100 mls/hr Sodium Chloride (Normal Saline -) 1,000 mls @ 100 mls/hr IV ASDIR [facility] Last Admin: 09/06/18 10:34 Dose: 100 mls/hr Lorazepam (Ativan Injection -) 0.5 mg IVPUSH Q6H PRN PRN Reason: ANXIETY Last Admin: 09/05/18 22:17 Dose: 0.5 mg Pantoprazole Sodium (Protonix Iv) 40 mg IVPUSH DAILY [facility] Last Admin: 09/06/18 10:35 Dose: 40 mg Promethazine HCl (Phenergan Injection -) 12.5 mg IVPB Q6H PRN PRN Reason: NAUSEA AND/OR VOMITING - Objective Vital Signs: Vital Signs Temperature 97.3 F L 09/06/18 06:00 Pulse Rate 110 H 09/06/18 06:00 Respiratory Rate 18 09/06/18 06:00 Blood Pressure 150/102 H 09/06/18 06:00 O2 Sat by Pulse Oximetry (%) 99 09/05/18 21:00 Constitutional: Yes: No Distress, Calm, Thin Cardiovascular: Yes: Regular Rate and Rhythm Respiratory: Yes: Regular, CTA Bilaterally Gastrointestinal: Yes: Normal Bowel Sounds, Soft Musculoskeletal: Yes: WNL Extremities: Yes: WNL Neurological: Yes: Alert, Oriented Psychiatric: Yes: Alert, Oriented Labs: CBC, BMP 09/06/18 06:30 09/06/18 06:30 INR, PTT INR 1.36 (0.83-1.09) H 09/02/18 06:30 Assessment/Plan t diverticulitis abd abscess multiple hyponatremia thin etoh abuse plan continue abx nutrition rest as per the wound and as per the team
[2018-09-06] MEDS ORDERED: morphine CARPU-JECT 4 MG/1 ML DISP.SYRIN IVPUSH PRN (13:11)
[2018-09-06] MEDS ORDERED: morphine CARPU-JECT 2 MG/1 ML DISP.SYRIN IVPUSH PRN (13:11)
[2018-09-06] MEDS ORDERED: LABETALOL HCL 5 MG/1 ML (100MG/20 ML VIAL) IVPUSH ONE (13:13)
--- NOTE | 2018-09-06 13:19 | PN ---
Progress Note (short form) - Note Progress Note: Subjective: No fever or chills , no pain, he is not pushing TOOTH GRINDER frequently. No N/V. Objective: Vital Signs: Last Vital Signs Temp Pulse Resp BP Pulse Ox 97.4 F L 118 H 20 151/96 99 09/06/18 08:00 09/06/18 12:41 09/06/18 08:00 09/06/18 12:41 09/05/18 21:00 Laboratory Results - last 24 hr 09/06/18 09/06/18 06:30 06:30 WBC 9.7 RBC 3.60 L Hgb 11.4 L Hct 31.8 L MCV 88.4 MCH 31.8 MCHC 35.9 RDW 15.9 Plt Count 286 MPV 9.3 Sodium 136 Potassium 3.7 Chloride 102 Carbon Dioxide 24 Anion Gap 10 BUN 5 L Creatinine 0.2 L Creat Clearance w eGFR > 60 Random Glucose 63 L Calcium 7.3 L Phosphorus 3.1 Magnesium 1.9 Total Bilirubin 0.4 AST 18 ALT 20 Alkaline Phosphatase 68 Total Protein 5.4 L Albumin 1.8 L Physical Exam: NAD, MMM CV: RRR, no MRG Lungs: CTAB Ext: no edema or erythema Abd: soft, ND, nl BS , mid line surgical dressing. Tenderness to palpation in all quadrants. colostomy bag with serosanguinous fluid ASSESSMENT AND PLAN: 48 y/o man with h/o Alcohol abuse, and recent hospitalization for acute diverticulitis with G neg bacteremia. He presented with worsening abd pain 1- Acute diverticulitis with abscess formation: s/p Aguilar procedure. - cont ertapenem day 2 fro ESBL proteus - strict NPO - DC diladudid TOOTH GRINDER and start morphine PRN for pain - d/w Dr. West the Enterococcus bacteremia in OSH , OK to continue same treatment as blood cx is negative here 2- HTN: start Norvasc. OK with Dr. Boo 3- ETOH abuse. dc ativan and watch for withdrawal sx Heparin SQ HLOC Visit type - Emergency Visit Emergency Visit: Yes ED Registration Date: 09/01/18 Care time: The patient presented to the Emergency Department on the above date and was hospitalized for further evaluation of their emergent condition. - New Patient This patient is new to me today: No - Critical Care Critical Care patient: No
[2018-09-06] MEDS ORDERED: morphine SULFATE 4 MG/ML VIAL IVPUSH PRN (21:08)
[2018-09-06] MEDS ORDERED: MORPHINE SULFATE 2 MG/ML VIAL IVPUSH PRN (21:09)
[2018-09-06] MEDS: MELATONIN 5 MG TABLETS PO PRN (21:37)
--- NOTE | 2018-09-07 05:44 | PN ---
Progress Note (short form) - Note Progress Note: Pain Management Patient seen at bedside. Patient's REAL ESTATE LOAN PROCESSOR was stopped by hospitalist team. Dept of anesthesiology will sign off care at this time.
[2018-09-07] MEDS: HEPARIN NA (PORCINE) 5,000 UNITS/ML 1ML VIAL SQ SCH ×3 (06:53→21:31)
[2018-09-07] MEDS ORDERED: PT OWN MED DRAWER 7, Y5N ONE (09:21)
[2018-09-07] MEDS: ERTAPENEM SODIUM 1 GM in SODIUM CHLORIDE 50 ML IVPB SCH (09:29)
[2018-09-07] MEDS: PANTOPRAZOLE SODIUM 40 MG VIAL IVPUSH SCH (09:30)
[2018-09-07] MEDS: SODIUM CHLORIDE 1,000 ML IV SCH ×3 (09:36→19:30)
[2018-09-07] MEDS: amLODIPine BESYLATE 5 MG TABLET (FP) PO SCH (10:33)
--- NOTE | 2018-09-07 10:51 | PN ---
Physical Exam: SUBJECTIVE: Patient seen and examined at bedside. No acute events overnight. Pt denies cp/sob, abd pain. Pt has not eating yet, but is hungry. Denies another other complaints. OBJECTIVE: Vital Signs Temperature 97.5 F L 09/07/18 07:00 Pulse Rate 111 H 09/07/18 07:00 Respiratory Rate 18 09/07/18 07:00 Blood Pressure 146/107 H 09/07/18 07:00 O2 Sat by Pulse Oximetry (%) 99 09/06/18 21:00 GENERAL: A&Ox3, no acute distress EYES: PERRLA, EOMI ENT: Moist mucus membranes NECK: No JVD LUNGS: CTA, no wheezes HEART: RRR, no murmurs ABDOMEN: Soft, nontender, BS diminished. b/l TATO drains draining serosanguinous fluid. Colostomy in place draining brown fluid. MUSCULOSKELETAL: No CVA Tenderness EXTREMITIES: 2+ pulses, no edema. NEUROLOGICAL: Cranial nerves II-XII intact. Active Medications Amlodipine Besylate (Norvasc -) 5 mg PO DAILY [facility] Last Admin: 09/07/18 10:33 Dose: 5 mg Heparin Sodium (Porcine) (Heparin -) 5,000 unit SQ TID [facility] Last Admin: 09/07/18 06:53 Dose: 5,000 unit Ertapenem 1 gm/ Sodium (Chloride) 50 mls @ 100 mls/hr IVPB DAILY [facility] Last Admin: 09/07/18 09:29 Dose: 100 mls/hr Sodium Chloride (Normal Saline -) 1,000 mls @ 100 mls/hr IV ASDIR [facility] Last Admin: 09/07/18 09:36 Dose: 100 mls/hr Melatonin (Melatonin) 5 mg PO HS PRN PRN Reason: INSOMNIA Last Admin: 09/06/18 21:37 Dose: 5 mg Morphine Sulfate (Morphine Sulfate) 4 mg IVPUSH Q4H PRN PRN Reason: PAIN LEVEL 6-10 Morphine Sulfate (Morphine Sulfate) 2 mg IVPUSH Q4H PRN PRN Reason: PAIN LEVEL 1-5 Pantoprazole Sodium (Protonix Iv) 40 mg IVPUSH DAILY [facility] Last Admin: 09/07/18 09:30 Dose: 40 mg Promethazine HCl (Phenergan Injection -) 12.5 mg IVPB Q6H PRN PRN Reason: NAUSEA AND/OR VOMITING ASSESSMENT/PLAN: 48M w/ PMH diverticulitis, hx of alcohol abuse who comes into the ED c/o abdominal pain found to have multiple intra-abdominal abscesses. #Acute diverticulitis w/ multiple abscess formation; s/p partial colectomy/ Carissa's procedure, POD#4 -Cultures +ESBL Proteus mirabilis and alpha hemolytic strep; await final cultures -Per ID, cont Ertapenem 1gm IVPB QD (started 09/05); abx to be cont x2 weeks -Per surg, may start on CLD; await further recs -According to records at [facility], pt was found to be bacteremic with cultures + Enterococcus avium and +Bacteroides fragilis. Pt had been contacted several times by the physicians that he needs to be hospitalized and properly treated, however pt refused. Per previous [place] records, he was treated with FLagyl and Cipro. #HTN -Amlodipine 5 mg PO QD #Hypotonic hyponatremia; Improving, 136 today. -cont to trend BMP #ETOH abuse -Ativan d/c'd, monitor for withdrawal symptoms #Prophylaxis -SQH/OOB/early ambulation -Protonix 40 mg IVP QD #FEN -no IVf; PO hydration -recheck lytes (Na) in AM -CLD dispo -full code -cont to monitor on med-surg Visit type - Emergency Visit Emergency Visit: Yes ED Registration Date: 09/01/18 Care time: The patient presented to the Emergency Department on the above date and was hospitalized for further evaluation of their emergent condition. - New Patient This patient is new to me today: No - Critical Care Critical Care patient: No
--- NOTE | 2018-09-07 11:34 | PN ---
Progress Note (short form) - Note Progress Note: 48yo M s/p Aguilar's and small bowel resection. Pt seen and examined at bedside. Pt denies fever, chills, n/v. Pt states that he wants to eat. Pt ambulating and urinating well. Last Vital Signs Temp Pulse Resp BP Pulse Ox 97.5 F L 111 H 18 146/107 H 99 09/07/18 07:00 09/07/18 07:00 09/07/18 07:00 09/07/18 07:00 09/06/18 21:00 CBC, BMP 09/06/18 06:30 09/06/18 06:30 PE: Gen: A&O x3 Resp: breathing comfortably Abd: soft, nondistended, nontender, incision clean with good granulation tissue. Drains serous drainage. Ostomy has liquid stool and air present. Output: Lt 90ml, Rt 80ml Ext: no edema Problem List - Problems (1) Perforated diverticulum of large intestine Assessment/Plan: Plan -will start clears as he appears to have signs of bowel function. -OOB/ambulate -GI ppx Code(s): K57.20 - DVTRCLI OF LG INT W PERFORATION AND ABSCESS W/O BLEEDING
--- NOTE | 2018-09-07 13:14 | PN ---
Progress Note, Physician History of Present Illness: stable doing well weak - Current Medication List Current Medications: Active Medications Amlodipine Besylate (Norvasc -) 5 mg PO DAILY [facility] Last Admin: 09/07/18 10:33 Dose: 5 mg Heparin Sodium (Porcine) (Heparin -) 5,000 unit SQ TID [facility] Last Admin: 09/07/18 06:53 Dose: 5,000 unit Ertapenem 1 gm/ Sodium (Chloride) 50 mls @ 100 mls/hr IVPB DAILY [facility] Last Admin: 09/07/18 09:29 Dose: 100 mls/hr Sodium Chloride (Normal Saline -) 1,000 mls @ 100 mls/hr IV ASDIR [facility] Last Admin: 09/07/18 09:36 Dose: 100 mls/hr Melatonin (Melatonin) 5 mg PO HS PRN PRN Reason: INSOMNIA Last Admin: 09/06/18 21:37 Dose: 5 mg Morphine Sulfate (Morphine Sulfate) 4 mg IVPUSH Q4H PRN PRN Reason: PAIN LEVEL 6-10 Morphine Sulfate (Morphine Sulfate) 2 mg IVPUSH Q4H PRN PRN Reason: PAIN LEVEL 1-5 Pantoprazole Sodium (Protonix Iv) 40 mg IVPUSH DAILY [facility] Last Admin: 09/07/18 09:30 Dose: 40 mg Promethazine HCl (Phenergan Injection -) 12.5 mg IVPB Q6H PRN PRN Reason: NAUSEA AND/OR VOMITING - Objective Vital Signs: Vital Signs Temperature 97.8 F 09/07/18 09:00 Pulse Rate 102 H 09/07/18 09:00 Respiratory Rate 20 09/07/18 09:00 Blood Pressure 160/90 09/07/18 09:00 O2 Sat by Pulse Oximetry (%) 99 09/07/18 09:00 Constitutional: Yes: No Distress, Calm Cardiovascular: Yes: Regular Rate and Rhythm Respiratory: Yes: Regular, CTA Bilaterally Gastrointestinal: Yes: Soft, Hypoactive Bowel Sounds Musculoskeletal: Yes: WNL Extremities: Yes: WNL Wound/Incision: Yes: Dressing Dry and Intact Neurological: Yes: Alert, Oriented Psychiatric: Yes: Alert, Oriented Labs: CBC, BMP 09/06/18 06:30 09/06/18 06:30 INR, PTT INR 1.36 (0.83-1.09) H 09/02/18 06:30 Assessment/Plan t diverticulitis abd abscess multiple hyponatremia thin etoh abuse plan continue abx nutrition rest as per surgery primary team will give abx for 2 weeks
--- NOTE | 2018-09-07 13:48 | PN ---
Physical Exam: SUBJECTIVE: Patient seen and examined at bedside. No acute events overnight. Pt denies cp/sob. Denies any complaints. OBJECTIVE: Vital Signs Temperature 97.8 F 09/07/18 09:00 Pulse Rate 102 H 09/07/18 09:00 Respiratory Rate 20 09/07/18 09:00 Blood Pressure 160/90 09/07/18 09:00 O2 Sat by Pulse Oximetry (%) 99 09/07/18 09:00 GENERAL: A&Ox3, no acute distress EYES: PERRLA, EOMI ENT: Moist mucus membranes NECK: No JVD LUNGS: CTA, no wheezes HEART: RRR, no murmurs ABDOMEN: Soft, nontender, BS diminished. b/l TATO drains draining serosanguinous fluid. Colostomy in place draining 150-200cc brown liquid. MUSCULOSKELETAL: No CVA Tenderness EXTREMITIES: 2+ pulses, no edema. NEUROLOGICAL: Cranial nerves II-XII intact. Active Medications Amlodipine Besylate (Norvasc -) 5 mg PO DAILY [facility] Last Admin: 09/07/18 10:33 Dose: 5 mg Heparin Sodium (Porcine) (Heparin -) 5,000 unit SQ TID [facility] Last Admin: 09/07/18 13:19 Dose: 5,000 unit Ertapenem 1 gm/ Sodium (Chloride) 50 mls @ 100 mls/hr IVPB DAILY [facility] Last Admin: 09/07/18 09:29 Dose: 100 mls/hr Sodium Chloride (Normal Saline -) 1,000 mls @ 100 mls/hr IV ASDIR [facility] Last Admin: 09/07/18 09:36 Dose: 100 mls/hr Melatonin (Melatonin) 5 mg PO HS PRN PRN Reason: INSOMNIA Last Admin: 09/06/18 21:37 Dose: 5 mg Morphine Sulfate (Morphine Sulfate) 4 mg IVPUSH Q4H PRN PRN Reason: PAIN LEVEL 6-10 Morphine Sulfate (Morphine Sulfate) 2 mg IVPUSH Q4H PRN PRN Reason: PAIN LEVEL 1-5 Pantoprazole Sodium (Protonix Iv) 40 mg IVPUSH DAILY [facility] Last Admin: 09/07/18 09:30 Dose: 40 mg Promethazine HCl (Phenergan Injection -) 12.5 mg IVPB Q6H PRN PRN Reason: NAUSEA AND/OR VOMITING ASSESSMENT/PLAN:
--- NOTE | 2018-09-07 16:50 | PATH ---
Surgical Pathology Report Patient Name: VIVIAN HERRERA Med. Rec. #: [id number] /Age/Gender: 1970 (Age: 48) / M Account: [id number] Location: [facility] MED/SURG Taken: 09/03/2018 Received: 09/04/2018 Reported: 09/07/2018 Physicians: MD Fawad Rosas M.D. Specimen(s) Received A: RECTOSIGMOID B: OMENTUM C: SMALL BOWEL,SEGMENTAL RESECTION Clinical History Diverticulitis, abdominal abscess Final Diagnosis A. RECTOSIGMOID COLON, RESECTION: SEGMENT OF COLON WITH DIVERTICULOSIS, DIVERTICULITIS, ASSOCIATED PERFORATION AND ABSCESS FORMATION. TUBULAR ADENOMA. HYPERPLASTIC POLYP. ACUTE SEROSITIS. SURGICAL MARGINS ARE VIABLE. B. OMENTUM, OMENTECTOMY: OMENTAL ADIPOSE TISSUE WITH ASSOCIATED ACUTE INFLAMMATORY EXUDATE, ABSCESS FORMATION, AND REACTIVE CHANGES. C. SMALL BOWEL, RESECTION: SEGMENT OF SMALL BOWEL WITH MUCOSAL ISCHEMIC CHANGES. SEROSA WITH MARKED ACUTE INFLAMMATION, HEMORRHAGE AND REACTIVE CHANGES. SURGICAL MARGINS ARE VIABLE. Electronically Signed Clarice Brian M.D. Gross Description A. Received in formalin labeled "rectosigmoid," is an 18 cm in length portion of bowel with a suture marking the proximal end, per the surgeon. The specimen displays 2 open mucosal margins and minimal attached fat. The serosa displays a focal defect, consistent with a rupture site. The serosa is donovan-brown with abundant adhesions and inflammation. The mucosa displays a 1.0 cm in greatest dimension pedunculated polypoid lesion at 4 cm from the proximal mucosal margin. The remaining mucosa is donovan with normal folds. Sectioning reveals a focal abscess cavity containing pus surrounding the colon. The colon wall is markedly thickened. There are additional uncomplicated diverticula present. [facility] sections are submitted in 11 cassettes as follows: 1-proximal mucosal margin; 2-distal mucosal margin; 3-4-rupture site; 5-mucosal polyp; 6-8-abscess cavity; 4-46-akimsgzdoc diverticula. B. Received in formalin labeled "omentum," is a 14.5 x 10.0 x 3.0 cm aggregate of lobulated adipose tissue, consistent with omentum. The omentum displays foci of inflammation and attached exudate. [facility] sections are submitted in 3 cassettes. C. Received in formalin labeled "small bowel," is a 23 cm in length portion of small bowel with 2 stapled mucosal margins and minimal attached fat. The serosa is red-brown and ischemic. The mucosa is donovan with normal folds. No mucosal masses are identified. [facility] sections are submitted in 5 cassettes as follows: 0-6-xulsiairoxyk stapled mucosal margins; 7-2-faolozsqlfyicf small bowel. 09/04/2018 [facility]09/04/2018
[2018-09-07] MEDS ORDERED: oxyCODONE HCL 5 MG TABLET PO PRN (18:29)
--- NOTE | 2018-09-07 18:30 | PN ---
Teaching Attending Note Name of Resident: Radha Polanco ATTENDING PHYSICIAN STATEMENT I saw and evaluated the patient. I reviewed the resident's note and discussed the case with the resident. I agree with the resident's findings and plan as documented. SUBJECTIVE: No fever or chills . No abd pain, No ANN , feels better . OBJECTIVE: NAD, MMM CV: RRR, no MRG Lungs: CTAB Ext: no edema or erythema Abd: soft, ND, nl BS , mid line surgical dressing. NT. colostomy bag with brown liquid stool ASSESSMENT AND PLAN: 48 y/o man with h/o Alcohol abuse, and recent hospitalization for acute diverticulitis with G neg bacteremia. He presented with worsening abd pain 1- Acute diverticulitis with abscess formation: s/p Aguilar procedure. - cont ertapenem day 3 for ESBL producing proteus - strict NPO - dc morphine and add oxycodone for pain 2- HTN: cont Norvasc 3- ETOH abuse. no signs of withdrawal Heparin SQ HLOC
[2018-09-07] MEDS: MELATONIN 5 MG TABLETS PO PRN (22:50)
[2018-09-08] MEDS: HEPARIN NA (PORCINE) 5,000 UNITS/ML 1ML VIAL SQ SCH ×3 (06:07→21:36)
[2018-09-08] MEDS: SODIUM CHLORIDE 1,000 ML IV SCH ×2 (07:30→16:30)
[2018-09-08 07:57] LABS: HEMATOCRIT 34.7 % (35.4-49); HEMOGLOBIN 12.3 GM/dL (11.7-16.9); MCH 31.1 pg (25.7-33.7); MCHC 35.4 g/dl (32.0-35.9); MEAN CELL VOLUME 87.8 fl (80-96); MEAN PLT VOLUME 8.3 fl (7.5-11.1); PLATELET COUNT 352 K/MM3 (134-434); RBC 3.95 M/mm3 (4.00-5.60); RDW 16.6 % (11.9-15.9); WHITE BLOOD COUNT 11.2 K/mm3 (4.0-10.0)
[2018-09-08 08:27] LABS: ANION GAP 9 MMOL/L (8-16); BLOOD UREA NITROGEN 4 mg/dL (7-18); CALCIUM 8.2 mg/dL (8.5-10.1); CHLORIDE 102 mmol/L (98-107); CO2 27 mmol/L (21-32); CREATININE 0.2 mg/dL (0.55-1.3); GLUCOSE,RANDOM 80 mg/dL (74-106); POTASSIUM 3.9 mmol/L (3.5-5.1); SODIUM 138 mmol/L (136-145)
--- NOTE | 2018-09-08 08:56 | PN ---
Progress Note (short form) - Note Progress Note: POD 5, s/p Exploratory laporotomy, Aguilar's procedure, Small bowel excision Pt seen and examined. Reports pain is controlled with PO pain meds. Was advanced to clears yesterday, reports it went "okay". Denies any n/v. Has been oob in his room without issue. Denies cp/sob, n/v/d, calf pain/edema. Vital Signs Temp 97.5 F L 09/08/18 06:56 Pulse 100 H 09/08/18 06:56 Resp 20 09/08/18 06:56 BP 155/99 09/08/18 06:56 Pulse Ox 96 09/07/18 21:00 Intake & Output 09/07/18 09/07/18 09/08/18 11:59 23:59 11:59 Intake Total 1200 1800 1200 Output Total 1170 1540 70 Balance 30 260 1130 Intake: IV 1200 1150 1200 Normal Saline - 1,000 ml 1200 1150 1200 @ 100 mls/hr IV ASDIR [facility] Rx#:[id number] IVPB 50 Oral 600 Output: Drainage 170 390 70 Left 90 140 50 Right 80 250 20 Urine 1000 1150 Void 1000 1150 Other: Voiding Method Toilet Toilet Bowel Movement Yes CBC, BMP 09/08/18 06:37 09/08/18 06:37 Gen: awake, alert, nad Resp: cta b/l CV: rrr, s1s2 Abdo: soft, nd, minimal ttp at incision site. Dressing removed, wound bed with minimal fibrinous exudate, minimal serous drainage, minimal surrounding erythema. Proximal ladan c/d/i. Proximal incision with clean wound bed, scant serous drainage. B/L TATO drains stripped. Minimal serosanguinous drainage in both. A/P: 48 y/o M w/ PMHx diverticulitis, ?h/o EToH abuse admitted 09/01 with abdominal pain, found to have diverticular disease with fat stranding and collections on CT, now POD 5, s/p Exploratory laporotomy, Aguilar's procedure, Small bowel excision. Afebrile, remains tachy to 1teens. Remainder of VSS. Wound bed without signs of infection. -Keep Tato x2 in place, monitor and record output -Change dressings daily (Iodoform into wound bed, cover with 4x4 and abd) -Continue IV abx per ID, per note x 2weeks -F/U path -Pain control with Oxy 5mg q4hrs prn pain -DVT prophylaxis with Heparin 5000 units, b/l scds -Monitor VS -Incentive spirometry encouraged -Advance diet to soft -CIWA per primary team -Remainder of care per primary team d/w attending Dr Boo
[2018-09-08] MEDS ORDERED: PT OWN MED DRAWER 7, Y5N ONE (09:38)
[2018-09-08] MEDS: amLODIPine BESYLATE 5 MG TABLET (FP) PO SCH (09:42)
[2018-09-08] MEDS: ERTAPENEM SODIUM 1 GM in SODIUM CHLORIDE 50 ML IVPB SCH (09:42)
[2018-09-08] MEDS: PANTOPRAZOLE SODIUM 40 MG VIAL IVPUSH SCH (09:42)
--- NOTE | 2018-09-08 12:43 | PN ---
Progress Note, Physician History of Present Illness: stable doing well - Current Medication List Current Medications: Active Medications Amlodipine Besylate (Norvasc -) 5 mg PO DAILY [facility] Last Admin: 09/08/18 09:42 Dose: 5 mg Heparin Sodium (Porcine) (Heparin -) 5,000 unit SQ TID [facility] Last Admin: 09/08/18 06:07 Dose: 5,000 unit Ertapenem 1 gm/ Sodium (Chloride) 50 mls @ 100 mls/hr IVPB DAILY [facility] Last Admin: 09/08/18 09:42 Dose: 100 mls/hr Sodium Chloride (Normal Saline -) 1,000 mls @ 100 mls/hr IV ASDIR [facility] Last Admin: 09/07/18 19:30 Dose: 100 mls/hr Melatonin (Melatonin) 5 mg PO HS PRN PRN Reason: INSOMNIA Last Admin: 09/07/18 22:50 Dose: 5 mg Oxycodone HCl (Roxicodone -) 5 mg PO Q4H PRN PRN Reason: PAIN LEVEL 6-10 Pantoprazole Sodium (Protonix Iv) 40 mg IVPUSH DAILY [facility] Last Admin: 09/08/18 09:42 Dose: 40 mg Promethazine HCl (Phenergan Injection -) 12.5 mg IVPB Q6H PRN PRN Reason: NAUSEA AND/OR VOMITING - Objective Vital Signs: Vital Signs Temperature 97.6 F 09/08/18 09:00 Pulse Rate 104 H 09/08/18 09:00 Respiratory Rate 20 09/08/18 09:00 Blood Pressure 140/84 09/08/18 09:00 O2 Sat by Pulse Oximetry (%) 96 09/07/18 21:00 Constitutional: Yes: No Distress, Calm Cardiovascular: Yes: Regular Rate and Rhythm Respiratory: Yes: Regular, CTA Bilaterally Gastrointestinal: Yes: Normal Bowel Sounds, Soft Musculoskeletal: Yes: WNL Extremities: Yes: WNL Wound/Incision: Yes: Clean/Dry Neurological: Yes: Alert, Oriented Psychiatric: Yes: Alert, Oriented Labs: CBC, BMP 09/08/18 06:37 09/08/18 06:37 INR, PTT INR 1.36 (0.83-1.09) H 09/02/18 06:30 Assessment/Plan t diverticulitis abd abscess multiple hyponatremia thin etoh abuse plan continue abx nutrition rest as per surgery primary team will give abx for 2 weeks
--- NOTE | 2018-09-08 12:43 | PN ---
Physical Exam: SUBJECTIVE: Patient seen and examined at bedside. No acute events overnight. Lidia PO diet. Denies chest pain, sob, abd pain, f/c, n/v. +ambulating. + urinating. OBJECTIVE: Vital Signs Temperature 97.6 F 09/08/18 09:00 Pulse Rate 104 H 09/08/18 09:00 Respiratory Rate 20 09/08/18 09:00 Blood Pressure 140/84 09/08/18 09:00 O2 Sat by Pulse Oximetry (%) 96 09/07/18 21:00 GENERAL: A&Ox3, no acute distress EYES: PERRLA, EOMI ENT: Moist mucus membranes NECK: No JVD LUNGS: CTA, no wheezes HEART: RRR, no murmurs ABDOMEN: Soft, nontender, BS diminished. b/l TATO drains draining serous fluid. Colostomy in place draining brown liquid. MUSCULOSKELETAL: No CVA Tenderness EXTREMITIES: 2+ pulses, no edema. NEUROLOGICAL: Cranial nerves II-XII intact. CBC, BMP 09/08/18 06:37 09/08/18 06:37 Active Medications Amlodipine Besylate (Norvasc -) 5 mg PO DAILY [facility] Last Admin: 09/08/18 09:42 Dose: 5 mg Heparin Sodium (Porcine) (Heparin -) 5,000 unit SQ TID [facility] Last Admin: 09/08/18 06:07 Dose: 5,000 unit Ertapenem 1 gm/ Sodium (Chloride) 50 mls @ 100 mls/hr IVPB DAILY [facility] Last Admin: 09/08/18 09:42 Dose: 100 mls/hr Sodium Chloride (Normal Saline -) 1,000 mls @ 100 mls/hr IV ASDIR [facility] Last Admin: 09/07/18 19:30 Dose: 100 mls/hr Melatonin (Melatonin) 5 mg PO HS PRN PRN Reason: INSOMNIA Last Admin: 09/07/18 22:50 Dose: 5 mg Oxycodone HCl (Roxicodone -) 5 mg PO Q4H PRN PRN Reason: PAIN LEVEL 6-10 Pantoprazole Sodium (Protonix Iv) 40 mg IVPUSH DAILY [facility] Last Admin: 09/08/18 09:42 Dose: 40 mg Promethazine HCl (Phenergan Injection -) 12.5 mg IVPB Q6H PRN PRN Reason: NAUSEA AND/OR VOMITING ASSESSMENT/PLAN: 48M w/ PMH diverticulitis, hx of alcohol abuse who comes into the ED c/o abdominal pain found to have multiple intra-abdominal abscesses. #Acute diverticulitis w/ multiple abscess formation; s/p partial colectomy/ Carissa's procedure, POD#5 -Per ID, cont Ertapenem 1gm IVPB QD (started 09/05); abx to be cont x2 weeks, then switch to PO. Consider re-scanning abd after TATO drains removed, although pt is afebrile, draining serous fluid in drains, and clinically looks well. -Per surg, adv to soft diet; await surg recs -Oxycodone 5 Q4H PRN for pain -Phenergan 12.5 mg IVP Q6H for nausea/vomiting -NS @ 100 -According to records at [place], pt was found to be bacteremic with cultures + Enterococcus avium and +Bacteroides fragilis. Pt had been contacted several times by the physicians that he needs to be hospitalized and properly treated, however pt refused. Per previous [place] records, he was treated with FLagyl and Cipro. #HTN -Amlodipine 5 mg PO QD #Hypotonic hyponatremia; Improving, 136 today. -cont to trend BMP #ETOH abuse -Ativan d/c'd, monitor for withdrawal symptoms #Prophylaxis -SQH/OOB/early ambulation -Protonix 40 mg IVP QD #FEN -no IVf; PO hydration -recheck lytes (Na) in AM -Soft diet dispo -full code -cont to monitor on med-surg Visit type - Emergency Visit Emergency Visit: Yes ED Registration Date: 09/01/18 Care time: The patient presented to the Emergency Department on the above date and was hospitalized for further evaluation of their emergent condition. - New Patient This patient is new to me today: No - Critical Care Critical Care patient: No
--- NOTE | 2018-09-08 13:11 | OP ---
DATE OF OPERATION: 09/03/2018 PREOPERATIVE DIAGNOSES: Sigmoid diverticulitis with remote perforation and intraabdominal abscesses. POSTOPERATIVE DIAGNOSES: Sigmoid diverticulitis with remote perforation and intraabdominal abscesses. PROCEDURE: Carissa procedure, small-bowel resection, and drainage of intraabdominal abscesses. SURGEON: Archie Boo MD [facility] TECHNICIAN: Robert Atkins PA-C ANESTHESIA: General. OPERATIVE FINDINGS: There was a remote perforation of the sigmoid due to clinically apparent diverticulitis. There was multiple abscess formation. One of the abscess cavities, that is the largest, was composed of omentum and small bowel as one of the durand of the abscess cavity. There was extensive thickening of the small bowel mesentery at this area and a portion of small bowel and omentum that was not completely viable. There were no collections in the pelvis, and the rest of the findings were unremarkable. PROCEDURE IN DETAIL: The patient was placed on the operating table in the supine position, and after the induction of general anesthesia, a Ng catheter was placed and sequential compression devices on the patient's lower extremities. The abdomen was prepped with ChloraPrep and draped in sterile fashion, and a timeout was taken and the peritoneal cavity entered through a midline incision starting slightly above the umbilicus. Exploration revealed the previous findings. The sigmoid colon was mobilized along the left lateral peritoneal reflection and a point distal where normal rectosigmoid could be seen was identified. Next, a proximal area to the pathology was identified where the left colon was normal. The colon was divided proximally and distally using a TA stapling device. Next, the mesentery of the segment to be resected was serially divided using the LigaSure device. Once this was completed, the sigmoid colon with the diverticulitis and remote perforation was passed off the operative field and sent for pathological examination. The abscess cavity comprised of the small bowel and omentum was entered and drainage sent for culture and sensitivity. The small bowel was run from the ileocecal valve proximally to an area of small bowel which was extremely tenuous with respect to its viability, and at this point, a small-bowel resection was carried out by dividing the small bowel proximally and distally using a ZOILA stapling device. The mesentery was divided using the LigaSure, and then, a aeyj-st-yfhb anastomosis was carried out using a ZOILA stapling device and the opening in the end of the anastomosis closed with the TA stapling device. Next, the small bowel was run proximal to this and distal towards the ileocecal valve without evidence of further nonviable small bowel. The defect in the small bowel mesentery was closed with continuous 2-0 Vicryl suture. Next, copious irrigation with 3 L of fluid was carried out until the return was clear. Two 10-mm David-Peralta drains were placed through separate stab wounds on either side of the midline incision into the pelvis and anchored to the skin with 2-0 silk suture. Next, an opening in the abdominal wall was created for the colostomy by excising a disk of skin and subcutaneous tissue and dividing the muscle and dividing the peritoneum using electrocautery. The end of the proximal left colon was brought through this opening to the skin level. Again, hemostasis was checked for and noted to be good and copious irrigation carried out. The abdominal midline incision was closed using continuous 0 looped Maxon suture. The skin edges around the umbilicus were reapproximated with surgical ladan and the wound packed with 1/2-inch Iodoform gauze. A sterile towel was placed over the incision and then the TA staple line of the proximal colon was excised and the colostomy matured and anchored to the abdominal wall with interrupted 3-0 Vicryl sutures. An appliance was placed and colostomy bag, and then, the midline wound dressed with dry sterile dressings and the drains connected to bulb self-suction and the procedure terminated at this point. The patient was aroused from general anesthesia and was transferred to the postanesthesia care unit in stable condition, awake and alert. ESTIMATED BLOOD LOSS: 125 mL REPLACEMENTS: Crystalloid 3000 mL. SPECIMENS: Portion of small bowel and sigmoid colon to Pathology. DRAINS: Two 10-mm David-Peralta. I, Archie Boo, was physically present in the operating room from the time the patient was placed on the operating table until he was transferred to the postanesthesia care unit in my accompaniment. MD KOLTON Mojica/[id number] MTDD
--- NOTE | 2018-09-08 15:54 | PN ---
Teaching Attending Note Name of Resident: Lisa Bullock ATTENDING PHYSICIAN STATEMENT I saw and evaluated the patient. I reviewed the resident's note and discussed the case with the resident. I agree with the resident's findings and plan as documented. SUBJECTIVE: No fever or chills . No abd pain. tolerated clears OBJECTIVE: NAD, MMM CV: RRR, no MRG Lungs: CTAB Ext: no edema or erythema Abd: soft, ND, nl BS , mid line surgical incision with ladan and packing . no surrounding erythema .. colostomy bag with brown liquid stool ASSESSMENT AND PLAN: 48 y/o man with h/o Alcohol abuse, and recent hospitalization for acute diverticulitis with G neg bacteremia. He presented with worsening abd pain 1- Acute diverticulitis with abscess formation: s/p Aguilar procedure. - cont ertapenem day 4 for ESBL producing proteus -soft diet today - cont oxycodone for pain 2- HTN: cont Norvasc 3- ETOH abuse. no signs of withdrawal Heparin SQ HLOC
[2018-09-08] MEDS: MELATONIN 5 MG TABLETS PO PRN (21:36)
[2018-09-09] MEDS: SODIUM CHLORIDE 1,000 ML IV SCH ×2 (01:45→15:14)
[2018-09-09] MEDS: HEPARIN NA (PORCINE) 5,000 UNITS/ML 1ML VIAL SQ SCH ×3 (06:01→21:31)
[2018-09-09 07:20] LABS: HEMATOCRIT 32.4 % (35.4-49); HEMOGLOBIN 11.5 GM/dL (11.7-16.9); MCH 31.1 pg (25.7-33.7); MCHC 35.4 g/dl (32.0-35.9); MEAN CELL VOLUME 87.9 fl (80-96); MEAN PLT VOLUME 8.5 fl (7.5-11.1); PLATELET COUNT 325 K/MM3 (134-434); RBC 3.69 M/mm3 (4.00-5.60); RDW 16.8 % (11.9-15.9); WHITE BLOOD COUNT 9.8 K/mm3 (4.0-10.0)
--- NOTE | 2018-09-09 07:22 | PN ---
Physical Exam: SUBJECTIVE: Patient seen and examined at bedside. No acute events overnight. Denies cp, sob. Minimal abd pain. Lidia PO diet, denies n/v, urinary/bowel symptoms. Pt is OOB and ambulating. OBJECTIVE: Last Vital Signs Temp Pulse Resp BP Pulse Ox 97.8 F 103 H 20 148/94 96 09/09/18 05:00 09/09/18 05:00 09/09/18 05:00 09/09/18 05:00 09/08/18 09:00 GENERAL: AAOx3, no acute distress EYES: DEMARCUS, EOMI ENT: Moist mucus membranes NECK: No JVD LUNGS: CTA, no wheezes HEART: RRR, no murmurs ABDOMEN: Soft, nontender, BS diminished. b/l TATO drains draining serous fluid. Colostomy in place draining brown liquid. MUSCULOSKELETAL: No CVA Tenderness EXTREMITIES: 2+ pulses, no edema. NEUROLOGICAL: Cranial nerves II-XII intact. CBCD WBC 11.2 K/mm3 (4.0-10.0) H 09/08/18 06:37 RBC 3.95 M/mm3 (4.00-5.60) L 09/08/18 06:37 Hgb 12.3 GM/dL (11.7-16.9) 09/08/18 06:37 Hct 34.7 % (35.4-49) L 09/08/18 06:37 MCV 87.8 fl (80-96) 09/08/18 06:37 MCHC 35.4 g/dl (32.0-35.9) 09/08/18 06:37 RDW 16.6 % (11.9-15.9) H 09/08/18 06:37 Plt Count 352 K/MM3 (134-434) D 09/08/18 06:37 MPV 8.3 fl (7.5-11.1) D 09/08/18 06:37 CMP Sodium 138 mmol/L (136-145) 09/08/18 06:37 Potassium 3.9 mmol/L (3.5-5.1) 09/08/18 06:37 Chloride 102 mmol/L (98-107) 09/08/18 06:37 Carbon Dioxide 27 mmol/L (21-32) 09/08/18 06:37 Anion Gap 9 MMOL/L (8-16) 09/08/18 06:37 BUN 4 mg/dL (7-18) L 09/08/18 06:37 Creatinine 0.2 mg/dL (0.55-1.3) L 09/08/18 06:37 Creat Clearance w eGFR > 60 (>60) 09/08/18 06:37 Calcium 8.2 mg/dL (8.5-10.1) L 09/08/18 06:37 Total Bilirubin 0.4 mg/dL (0.2-1) 09/06/18 06:30 AST 18 U/L (15-37) 09/06/18 06:30 ALT 20 U/L (13-61) 09/06/18 06:30 Alkaline Phosphatase 68 U/L (45-117) 09/06/18 06:30 Total Protein 5.4 g/dl (6.4-8.2) L 09/06/18 06:30 Albumin 1.8 g/dl (3.4-5.0) L 09/06/18 06:30 Active Medications Amlodipine Besylate (Norvasc -) 5 mg PO DAILY [facility] Last Admin: 09/08/18 09:42 Dose: 5 mg Heparin Sodium (Porcine) (Heparin -) 5,000 unit SQ TID [facility] Last Admin: 09/09/18 06:01 Dose: 5,000 unit Ertapenem 1 gm/ Sodium (Chloride) 50 mls @ 100 mls/hr IVPB DAILY [facility] Last Admin: 09/08/18 09:42 Dose: 100 mls/hr Sodium Chloride (Normal Saline -) 1,000 mls @ 100 mls/hr IV ASDIR [facility] Last Admin: 09/09/18 01:45 Dose: 100 mls/hr Melatonin (Melatonin) 5 mg PO HS PRN PRN Reason: INSOMNIA Last Admin: 09/08/18 21:36 Dose: 5 mg Oxycodone HCl (Roxicodone -) 5 mg PO Q4H PRN PRN Reason: PAIN LEVEL 6-10 Pantoprazole Sodium (Protonix Iv) 40 mg IVPUSH DAILY [facility] Last Admin: 09/08/18 09:42 Dose: 40 mg Promethazine HCl (Phenergan Injection -) 12.5 mg IVPB Q6H PRN PRN Reason: NAUSEA AND/OR VOMITING IMAGING: * CTAP: Multiple diverticula and mild thickening of mid to mid distal sigmoid suggestive of colitis/diverticulitis. Findings suspicious for multiple abscesses due to perforations. Thickening of terminal ileum wall. * CTAP w/ oral contrast: 10 x 5 x 3 cm abscess noted interposed between sigmoid colon and urinary bladder. Also 7 x 2.5 x 3 cm abscess within the R paramedian aspect of the mid to upper pelvis ventrally. 4 x 4 x 3 cm smoothly marginated cystic structure within the L inferior pelvis laterally abutting the superior border of the obturator internus muscle. ASSESSMENT/PLAN: 48M w/ PMH diverticulitis, hx of alcohol abuse who comes into the ED c/o abdominal pain found to have multiple intra-abdominal abscesses. #Acute diverticulitis w/ multiple abscess formation; s/p partial colectomy/ Carissa's procedure, POD#5 -Per ID, cont Ertapenem 1gm IVPB QD (started 09/05); abx to be cont x2 weeks, then switch to PO. -Per surg, adv to soft diet; TATO drains removed x2, daily wound care with wet to dry/iodoform packing -Oxycodone 5 Q4H PRN for pain -Phenergan 12.5 mg IVP Q6H for nausea/vomiting -NS @ 100 -According to records at [place], pt was found to be bacteremic with cultures + Enterococcus avium and +Bacteroides fragilis. Pt had been contacted several times by the physicians that he needs to be hospitalized and properly treated, however pt refused. Per previous [place] records, he was treated with FLagyl and Cipro. #HTN -Amlodipine 5 mg PO QD #Hypotonic hyponatremia; Improving, 139 today. -cont to trend BMP #ETOH abuse -Ativan d/c'd, monitor for withdrawal symptoms #Prophylaxis -SQH/OOB/early ambulation -Protonix 40 mg IVP QD #FEN -no IVf; PO hydration -recheck lytes (Na) in AM -Soft diet dispo -full code -cont to monitor on med-surg -VNS needed upon d/c Visit type - Emergency Visit Emergency Visit: Yes ED Registration Date: 09/01/18 Care time: The patient presented to the Emergency Department on the above date and was hospitalized for further evaluation of their emergent condition. - New Patient This patient is new to me today: No - Critical Care Critical Care patient: No
[2018-09-09 07:49] LABS: ANION GAP 9 MMOL/L (8-16); BLOOD UREA NITROGEN 4 mg/dL (7-18); CALCIUM 7.8 mg/dL (8.5-10.1); CHLORIDE 104 mmol/L (98-107); CO2 26 mmol/L (21-32); CREATININE 0.2 mg/dL (0.55-1.3); GLUCOSE,RANDOM 92 mg/dL (74-106); POTASSIUM 3.4 mmol/L (3.5-5.1); SODIUM 139 mmol/L (136-145)
--- NOTE | 2018-09-09 09:00 | PN ---
Progress Note (short form) - Note Progress Note: Pt without any complaints today. tolerating a diet. oob and ambulating. Vital Signs Period Temp Pulse Resp BP Sys/Yañez Pulse Ox Last 24 Hr 97.5 F-98.0 F 62-118 18-20 110-148/75-103 96 TATO: serosangrenous GEN: A&0x3, NAD CV; tachycardia ABD: midline incision with intermittent ladan. fasia intact. No foul drainage or odor. Ostomy with stool. LE: no calf tenderness or swelling noted b/l. ALEK in place. TATO's removed x2 with the tip intact. CBC, BMP 09/09/18 06:00 09/09/18 06:00 A/P: s/p ex lap with SB resection/hartmans, POD#6 Continue diet as tolerated Oob/ambulate DVT ppx sq Daily wound care with wet to dry/iodoform packing. VNS ordered placed for discharge planning D/w Dr. Boo ID recommendations for antibiotics for discharge Problem List - Problems (1) Abdominal pain Code(s): R10.9 - UNSPECIFIED ABDOMINAL PAIN Qualifiers: Abdominal location: right lower quadrant Qualified Code(s): R10.31 - Right lower quadrant pain
[2018-09-09] MEDS: amLODIPine BESYLATE 5 MG TABLET (FP) PO SCH (10:52)
[2018-09-09] MEDS: PANTOPRAZOLE SODIUM 40 MG VIAL IVPUSH SCH (10:53)
--- NOTE | 2018-09-09 12:36 | PN ---
Progress Note, Physician History of Present Illness: stable no issues drain removed - Current Medication List Current Medications: Active Medications Amlodipine Besylate (Norvasc -) 5 mg PO DAILY [facility] Last Admin: 09/09/18 10:52 Dose: 5 mg Heparin Sodium (Porcine) (Heparin -) 5,000 unit SQ TID [facility] Last Admin: 09/09/18 06:01 Dose: 5,000 unit Ertapenem 1 gm/ Sodium (Chloride) 50 mls @ 100 mls/hr IVPB DAILY [facility] Last Admin: 09/08/18 09:42 Dose: 100 mls/hr Sodium Chloride (Normal Saline -) 1,000 mls @ 100 mls/hr IV ASDIR [facility] Last Admin: 09/09/18 01:45 Dose: 100 mls/hr Melatonin (Melatonin) 5 mg PO HS PRN PRN Reason: INSOMNIA Last Admin: 09/08/18 21:36 Dose: 5 mg Oxycodone HCl (Roxicodone -) 5 mg PO Q4H PRN PRN Reason: PAIN LEVEL 6-10 Pantoprazole Sodium (Protonix Iv) 40 mg IVPUSH DAILY [facility] Last Admin: 09/09/18 10:53 Dose: 40 mg Promethazine HCl (Phenergan Injection -) 12.5 mg IVPB Q6H PRN PRN Reason: NAUSEA AND/OR VOMITING - Objective Vital Signs: Vital Signs Temperature 97.8 F 09/09/18 10:51 Pulse Rate 110 H 09/09/18 10:51 Respiratory Rate 18 09/09/18 10:51 Blood Pressure 160/98 09/09/18 10:51 O2 Sat by Pulse Oximetry (%) 96 09/08/18 09:00 Constitutional: Yes: No Distress, Calm, Thin Cardiovascular: Yes: Regular Rate and Rhythm Respiratory: Yes: Regular, CTA Bilaterally Gastrointestinal: Yes: Normal Bowel Sounds, Soft Musculoskeletal: Yes: WNL Extremities: Yes: WNL Wound/Incision: Yes: Clean/Dry Neurological: Yes: Alert, Oriented Psychiatric: Yes: Alert, Oriented Labs: CBC, BMP 09/09/18 06:00 09/09/18 06:00 INR, PTT INR 1.36 (0.83-1.09) H 09/02/18 06:30 Assessment/Plan t diverticulitis abd abscess multiple hyponatremia thin etoh abuse plan continue abx finish a course for 14 days rest as per the team patient improving
[2018-09-09] MEDS: ERTAPENEM SODIUM 1 GM in SODIUM CHLORIDE 50 ML IVPB SCH (13:10)
--- NOTE | 2018-09-09 18:04 | PN ---
Teaching Attending Note Name of Resident: Lisa Bullock ATTENDING PHYSICIAN STATEMENT I saw and evaluated the patient. I reviewed the resident's note and discussed the case with the resident. I agree with the resident's findings and plan as documented. SUBJECTIVE: Patient is comfortable with no acute distress. feels better. OBJECTIVE: Vital Signs Temperature 97.9 F 09/09/18 17:12 Pulse Rate 133 H 09/09/18 17:12 Respiratory Rate 20 09/09/18 17:12 Blood Pressure 139/99 09/09/18 17:12 O2 Sat by Pulse Oximetry (%) 96 09/09/18 09:00 GENERAL: AAOx3, no acute distress EYES: DEMARCUS, EOMI ENT: Moist mucus membranes NECK: No JVD, LUNGS: CTA, no wheezes HEART: RRR, no murmurs ABDOMEN: Soft, nontender, BS diminished. b/l TATO drains draining serous fluid. Colostomy in place draining brown liquid. EXTREMITIES: 2+ pulses, no edema. NEUROLOGICAL: Cranial nerves II-XII intact. CBCD WBC 9.8 K/mm3 (4.0-10.0) 09/09/18 06:00 RBC 3.69 M/mm3 (4.00-5.60) L 09/09/18 06:00 Hgb 11.5 GM/dL (11.7-16.9) L 09/09/18 06:00 Hct 32.4 % (35.4-49) L 09/09/18 06:00 MCV 87.9 fl (80-96) 09/09/18 06:00 MCHC 35.4 g/dl (32.0-35.9) 09/09/18 06:00 RDW 16.8 % (11.9-15.9) H 09/09/18 06:00 Plt Count 325 K/MM3 (134-434) 09/09/18 06:00 MPV 8.5 fl (7.5-11.1) 09/09/18 06:00 CMP Sodium 139 mmol/L (136-145) 09/09/18 06:00 Potassium 3.4 mmol/L (3.5-5.1) L 09/09/18 06:00 Chloride 104 mmol/L (98-107) 09/09/18 06:00 Carbon Dioxide 26 mmol/L (21-32) 09/09/18 06:00 Anion Gap 9 MMOL/L (8-16) 09/09/18 06:00 BUN 4 mg/dL (7-18) L 09/09/18 06:00 Creatinine 0.2 mg/dL (0.55-1.3) L 09/09/18 06:00 Creat Clearance w eGFR > 60 (>60) 09/09/18 06:00 Random Glucose 92 mg/dL (74-106) 09/09/18 06:00 Calcium 7.8 mg/dL (8.5-10.1) L 09/09/18 06:00 Total Bilirubin 0.4 mg/dL (0.2-1) 09/06/18 06:30 AST 18 U/L (15-37) 09/06/18 06:30 ALT 20 U/L (13-61) 09/06/18 06:30 Alkaline Phosphatase 68 U/L (45-117) 09/06/18 06:30 Total Protein 5.4 g/dl (6.4-8.2) L 09/06/18 06:30 Albumin 1.8 g/dl (3.4-5.0) L 09/06/18 06:30 CARDIAC ENZYMES Creatine Kinase 25 U/L (26-308) L 09/01/18 16:16 Troponin I < 0.02 ng/ml (0.00-0.05) 09/01/18 16:16 Current Medications Generic Name Dose Route Start Last Admin Trade Name Freq PRN Reason Stop Dose Admin Amlodipine Besylate 5 mg 09/07/18 10:00 09/09/18 10:52 Norvasc - PO 5 mg DAILY [facility] Administration Heparin Sodium (Porcine) 5,000 unit 09/04/18 14:00 09/09/18 15:14 Heparin - SQ 5,000 unit TID [facility] Administration Ertapenem 1 gm/ Sodium 50 mls @ 100 mls/hr 09/05/18 11:15 09/09/18 13:10 Chloride IVPB 100 mls/hr DAILY [facility] Administration Melatonin 5 mg 09/06/18 21:13 09/08/18 21:36 Melatonin PO 5 mg HS PRN Administration INSOMNIA Oxycodone HCl 5 mg 09/07/18 18:29 Roxicodone - PO Q4H PRN PAIN LEVEL 6-10 Pantoprazole Sodium 40 mg 09/04/18 10:00 09/09/18 10:53 Protonix Iv IVPUSH 40 mg DAILY [facility] Administration Promethazine HCl 12.5 mg 09/03/18 15:40 Phenergan Injection - IVPB Q6H PRN NAUSEA AND/OR VOMITING ASSESSMENT AND PLAN: 48 y/o man with h/o Alcohol abuse, and recent hospitalization for acute diverticulitis with G neg bacteremia. He presented with worsening abd pain #Acute diverticulitis with abscess formation: s/p Aguilar procedure. on ertapenem day 5 for ESBL producing proteus , soft diet today ,oxycodone for pain prn # HTN: cont Norvasc # ETOH abuse. no signs of withdrawal Heparin SQ
[2018-09-09] MEDS: MELATONIN 5 MG TABLETS PO PRN (23:11)
[2018-09-10] MEDS: HEPARIN NA (PORCINE) 5,000 UNITS/ML 1ML VIAL SQ SCH ×3 (06:29→21:39)
[2018-09-10 07:50] LABS: HEMATOCRIT 32.7 % (35.4-49); HEMOGLOBIN 11.4 GM/dL (11.7-16.9); MCH 30.5 pg (25.7-33.7); MCHC 34.8 g/dl (32.0-35.9); MEAN CELL VOLUME 87.7 fl (80-96); MEAN PLT VOLUME 8.8 fl (7.5-11.1); PLATELET COUNT 340 K/MM3 (134-434); RBC 3.73 M/mm3 (4.00-5.60); RDW 16.7 % (11.9-15.9); WHITE BLOOD COUNT 11.9 K/mm3 (4.0-10.0)
[2018-09-10 08:22] LABS: ANION GAP 11 MMOL/L (8-16); BLOOD UREA NITROGEN 6 mg/dL (7-18); CALCIUM 7.9 mg/dL (8.5-10.1); CHLORIDE 102 mmol/L (98-107); CO2 25 mmol/L (21-32); CREATININE 0.3 mg/dL (0.55-1.3); GLUCOSE,RANDOM 83 mg/dL (74-106); POTASSIUM 3.5 mmol/L (3.5-5.1); SODIUM 138 mmol/L (136-145)
--- NOTE | 2018-09-10 09:06 | PN ---
Progress Note (short form) - Note Progress Note: POD 7, s/p Exploratory laporotomy, Aguilar's procedure, Small bowel excision Pt seen and examined. Reports pain is controlled with PO pain meds. Tolerating Po. Denies any n/v. Colostomy functioning. Has been oob in his room without issue. Denies cp/sob, n/v/d, calf pain/edema. Vital Signs Temp 97.8 F 09/10/18 11:20 Pulse 109 H 09/10/18 12:23 Resp 18 09/10/18 11:20 BP 140/95 09/10/18 12:23 Pulse Ox 96 09/09/18 21:00 Intake & Output 09/09/18 09/10/18 09/10/18 23:59 11:59 23:59 Intake Total 1200 350 Balance 1200 350 Intake: IV 1000 Normal Saline - 1,000 ml 1000 @ 100 mls/hr IV ASDIR [facility] Rx#:[id number] Oral 200 350 Other: Voiding Method Toilet Toilet # Unmeasured Voids Void 1 2 Bowel Movement Yes Yes: 300cc in bag CBC, BMP 09/10/18 06:00 09/10/18 06:00 Gen: awake, alert, nad Resp: cta b/l CV: rrr, s1s2 Abdo: soft, nd, minimal ttp at incision site. Dressing removed, wound bed with minimal fibrinous exudate, minimal serous drainage, minimal surrounding erythema. Proximal ladan c/d/i. Proximal incision with clean wound bed, scant serous drainage. Redressed with Iodoform packing and ABD pad. A/P: 48 y/o M w/ PMHx diverticulitis, ?h/o EToH abuse admitted 09/01 with abdominal pain, found to have diverticular disease with fat stranding and collections on CT, now POD 7, s/p Exploratory laporotomy, Aguilar's procedure, Small bowel excision. Afebrile, remains tachy to 1teens. Remainder of VSS. Wound bed without signs of infection. WBC trending up again 11.9 today from 9.8 -Change dressings daily (Iodoform into wound bed, cover with 4x4 and abd) -Continue IV abx per ID, per note x 2weeks -Pain control with Oxy 5mg q4hrs prn pain -DVT prophylaxis with Heparin 5000 units, b/l scds -Monitor VS -Incentive spirometry encouraged -Advance diet to soft -CIWA per primary team -Remainder of care per primary team -D/C planning d/w attending Dr Boo
[2018-09-10] MEDS: PANTOPRAZOLE SODIUM 40 MG VIAL IVPUSH SCH (11:07)
[2018-09-10] MEDS: amLODIPine BESYLATE 5 MG TABLET (FP) PO SCH (11:07)
[2018-09-10] MEDS: ERTAPENEM SODIUM 1 GM in SODIUM CHLORIDE 50 ML IVPB SCH (11:08)
--- NOTE | 2018-09-10 11:44 | PN ---
Progress Note, Physician History of Present Illness: patient stable no new issues feels great - Current Medication List Current Medications: Active Medications Amlodipine Besylate (Norvasc -) 5 mg PO DAILY [facility] Last Admin: 09/10/18 11:07 Dose: 5 mg Heparin Sodium (Porcine) (Heparin -) 5,000 unit SQ TID [facility] Last Admin: 09/10/18 06:29 Dose: 5,000 unit Ertapenem 1 gm/ Sodium (Chloride) 50 mls @ 100 mls/hr IVPB DAILY [facility] Last Admin: 09/10/18 11:08 Dose: 100 mls/hr Melatonin (Melatonin) 5 mg PO HS PRN PRN Reason: INSOMNIA Last Admin: 09/09/18 23:11 Dose: 5 mg Oxycodone HCl (Roxicodone -) 5 mg PO Q4H PRN PRN Reason: PAIN LEVEL 6-10 Pantoprazole Sodium (Protonix Iv) 40 mg IVPUSH DAILY [facility] Last Admin: 09/10/18 11:07 Dose: 40 mg Promethazine HCl (Phenergan Injection -) 12.5 mg IVPB Q6H PRN PRN Reason: NAUSEA AND/OR VOMITING - Objective Vital Signs: Vital Signs Temperature 97.8 F 09/10/18 11:20 Pulse Rate 117 H 09/10/18 11:20 Respiratory Rate 18 09/10/18 11:20 Blood Pressure 144/106 H 09/10/18 11:20 O2 Sat by Pulse Oximetry (%) 96 09/09/18 21:00 Constitutional: Yes: No Distress, Calm Cardiovascular: Yes: Regular Rate and Rhythm Respiratory: Yes: Regular, CTA Bilaterally Gastrointestinal: Yes: Normal Bowel Sounds, Soft Musculoskeletal: Yes: WNL Extremities: Yes: WNL Wound/Incision: Yes: Clean/Dry Neurological: Yes: Alert, Oriented Psychiatric: Yes: Alert, Oriented Labs: CBC, BMP 09/10/18 06:00 09/10/18 06:00 INR, PTT INR 1.36 (0.83-1.09) H 09/02/18 06:30 Assessment/Plan t diverticulitis abd abscess multiple hyponatremia thin etoh abuse plan continue abx finish abx course rest as per the team patient improving
--- NOTE | 2018-09-10 18:46 | PN ---
Teaching Attending Note Name of Resident: Lisa Bullock ATTENDING PHYSICIAN STATEMENT I saw and evaluated the patient. I reviewed the resident's note and discussed the case with the resident. I agree with the resident's findings and plan as documented. SUBJECTIVE: OBJECTIVE: Vital Signs Temperature 97.8 F 09/10/18 11:20 Pulse Rate 109 H 09/10/18 12:23 Respiratory Rate 18 09/10/18 11:20 Blood Pressure 140/95 09/10/18 12:23 O2 Sat by Pulse Oximetry (%) 96 09/10/18 09:00 GENERAL: AAOx3, no acute distress EYES: DEMARCUS, EOMI ENT: Moist mucus membranes NECK: No JVD, LUNGS: CTA, no wheezes HEART: RRR, no murmurs ABDOMEN: Soft, nontender, BS diminished. b/l TATO drains draining serous fluid. Colostomy in place draining brown liquid. EXTREMITIES: 2+ pulses, no edema. NEUROLOGICAL: Cranial nerves II-XII intact. CBCD WBC 11.9 K/mm3 (4.0-10.0) H 09/10/18 06:00 RBC 3.73 M/mm3 (4.00-5.60) L 09/10/18 06:00 Hgb 11.4 GM/dL (11.7-16.9) L 09/10/18 06:00 Hct 32.7 % (35.4-49) L 09/10/18 06:00 MCV 87.7 fl (80-96) 09/10/18 06:00 MCHC 34.8 g/dl (32.0-35.9) 09/10/18 06:00 RDW 16.7 % (11.9-15.9) H 09/10/18 06:00 Plt Count 340 K/MM3 (134-434) 09/10/18 06:00 MPV 8.8 fl (7.5-11.1) 09/10/18 06:00 CMP Sodium 138 mmol/L (136-145) 09/10/18 06:00 Potassium 3.5 mmol/L (3.5-5.1) 09/10/18 06:00 Chloride 102 mmol/L (98-107) 09/10/18 06:00 Carbon Dioxide 25 mmol/L (21-32) 09/10/18 06:00 Anion Gap 11 MMOL/L (8-16) 09/10/18 06:00 BUN 6 mg/dL (7-18) L 09/10/18 06:00 Creatinine 0.3 mg/dL (0.55-1.3) L 09/10/18 06:00 Creat Clearance w eGFR > 60 (>60) 09/10/18 06:00 Random Glucose 83 mg/dL (74-106) 09/10/18 06:00 Calcium 7.9 mg/dL (8.5-10.1) L 09/10/18 06:00 Total Bilirubin 0.4 mg/dL (0.2-1) 09/06/18 06:30 AST 18 U/L (15-37) 09/06/18 06:30 ALT 20 U/L (13-61) 09/06/18 06:30 Alkaline Phosphatase 68 U/L (45-117) 09/06/18 06:30 Total Protein 5.4 g/dl (6.4-8.2) L 09/06/18 06:30 Albumin 1.8 g/dl (3.4-5.0) L 09/06/18 06:30 CARDIAC ENZYMES Creatine Kinase 25 U/L (26-308) L 09/01/18 16:16 Troponin I < 0.02 ng/ml (0.00-0.05) 09/01/18 16:16 Current Medications Generic Name Dose Route Start Last Admin Trade Name Freq PRN Reason Stop Dose Admin Amlodipine Besylate 5 mg 09/07/18 10:00 09/10/18 11:07 Norvasc - PO 5 mg DAILY [facility] Administration Heparin Sodium (Porcine) 5,000 unit 09/04/18 14:00 09/10/18 14:05 Heparin - SQ 5,000 unit TID [facility] Administration Ertapenem 1 gm/ Sodium 50 mls @ 100 mls/hr 09/05/18 11:15 09/10/18 11:08 Chloride IVPB 100 mls/hr DAILY [facility] Administration Melatonin 5 mg 09/06/18 21:13 09/09/18 23:11 Melatonin PO 5 mg HS PRN Administration INSOMNIA Pantoprazole Sodium 40 mg 09/04/18 10:00 09/10/18 11:07 Protonix Iv IVPUSH 40 mg DAILY [facility] Administration Promethazine HCl 12.5 mg 09/03/18 15:40 Phenergan Injection - IVPB Q6H PRN NAUSEA AND/OR VOMITING Home Medications Medication Instructions Recorded NK [No Known Home Medication] 09/02/18 ASSESSMENT AND PLAN: Patient is a 48 y/o man with h/o Alcohol abuse, and recent hospitalization for acute diverticulitis with Gram neg bacteremia. Presented with worsening abd pain #Acute diverticulitis with abscess formation: s/p Aguilar procedure. on ertapenem day 7/ for ESBL producing proteus, continue diet ,oxycodone for pain prn will discuss with ID. # HTN: cont Norvasc # ETOH abuse. no signs of withdrawal Heparin SQ
[2018-09-10] MEDS: MELATONIN 5 MG TABLETS PO PRN (21:39)
[2018-09-11] MEDS: HEPARIN NA (PORCINE) 5,000 UNITS/ML 1ML VIAL SQ SCH ×2 (06:31→13:34)
--- NOTE | 2018-09-11 07:24 | PN ---
Physical Exam: SUBJECTIVE: Patient seen and examined. No acute events overnight. Pt ambulating and tolerating diet. Minimal abd tenderness. OBJECTIVE: Last Vital Signs Temp Pulse Resp BP Pulse Ox 98.1 F 109 H 20 127/85 96 09/11/18 06:33 09/11/18 06:33 09/11/18 06:33 09/11/18 06:33 09/10/18 09:00 GENERAL: AAOx3, no acute distress EYES: DEMARCUS, EOMI ENT: Moist mucus membranes NECK: No JVD LUNGS: CTA, no wheezes HEART: RRR, no murmurs ABDOMEN: Soft, nontender, BS diminished. Colostomy in place draining brown liquid. MUSCULOSKELETAL: No CVA Tenderness EXTREMITIES: 2+ pulses, no edema. NEUROLOGICAL: Cranial nerves II-XII intact. CBC, BMP 09/10/18 06:00 09/10/18 06:00 Microbiology 09/01/18 17:28 Blood - Peripheral Venous Blood Culture - Final NO GROWTH AFTER 5 DAYS INCUBATION 09/01/18 17:28 Blood - Peripheral Venous Blood Culture - Final NO GROWTH AFTER 5 DAYS INCUBATION 09/03/18 10:25 Abscess Gram Stain - Final 09/03/18 10:25 Abscess Body Fluid Culture - Final Proteus Mirabilus - Esbl Produ Alpha Hemolytic Streptococcus Proteus Mirabilus - Esbl Produ#2 09/03/18 10:25 Abscess Anaerobic Culture - Final NO ANAEROBES WERE ISOLATED 09/01/18 17:40 Urine - Urine Clean Catch Urine Culture - Final NO GROWTH OBTAINED IMAGING: CTAP: Multiple diverticula and mild thickening of mid to mid distal sigmoid suggestive of colitis/diverticulitis. Findings suspicious for multiple abscesses due to perforations. Thickening of terminal ileum wall. CTAP w/ oral contrast: 10 x 5 x 3 cm abscess noted interposed between sigmoid colon and urinary bladder. Also 7 x 2.5 x 3 cm abscess within the R paramedian aspect of the mid to upper pelvis ventrally. 4 x 4 x 3 cm smoothly marginated cystic structure within the L inferior pelvis laterally abutting the superior border of the obturator internus muscle. ASSESSMENT/PLAN: 48M w/ PMH diverticulitis, hx of alcohol abuse who comes into the ED c/o abdominal pain found to have multiple intra-abdominal abscesses. #Acute diverticulitis w/ multiple abscess formation; s/p partial colectomy/ Carissa's procedure, POD#5 -Per ID, cont Ertapenem 1gm IVPB QD (started 09/05); abx to be cont x2 weeks, then switch to PO. Will monitor for another day and likely DC planning tomorrow with PICC line and VNS services. -Per surg, adv to soft diet; TATO drains removed x2, daily wound care with wet to dry/iodoform packing -Oxycodone 5 Q4H PRN for pain -Phenergan 12.5 mg IVP Q6H for nausea/vomiting -NS @ 100 -According to records at [place], pt was found to be bacteremic with cultures + Enterococcus avium and +Bacteroides fragilis. Pt had been contacted several times by the physicians that he needs to be hospitalized and properly treated, however pt refused. Per previous [place] records, he was treated with FLagyl and Cipro. #HTN -Amlodipine 5 mg PO QD #Hypotonic hyponatremia; Improving, 139 today. -cont to trend BMP #ETOH abuse -Ativan d/c'd, monitor for withdrawal symptoms #Prophylaxis -SQH/OOB/early ambulation -Protonix 40 mg IVP QD #FEN -no IVf; PO hydration -recheck lytes (Na) in AM -Soft diet dispo -full code -cont to monitor on med-surg -VNS needed upon d/c; d/w SW Visit type - Emergency Visit Emergency Visit: Yes ED Registration Date: 09/01/18 Care time: The patient presented to the Emergency Department on the above date and was hospitalized for further evaluation of their emergent condition. - New Patient This patient is new to me today: No - Critical Care Critical Care patient: No
[2018-09-11] MEDS ORDERED: PT OWN MED DRAWER 7, Y5N ONE (09:45)
--- NOTE | 2018-09-11 10:16 | PN ---
Teaching Attending Note Name of Resident: Lisa Bullock ATTENDING PHYSICIAN STATEMENT I saw and evaluated the patient. I reviewed the resident's note and discussed the case with the resident. I agree with the resident's findings and plan as documented. SUBJECTIVE: Patient is comfortable with no fever or chills. OBJECTIVE: Vital Signs Temperature 98.1 F 09/11/18 06:33 Pulse Rate 109 H 09/11/18 06:33 Respiratory Rate 20 09/11/18 06:33 Blood Pressure 127/85 09/11/18 06:33 O2 Sat by Pulse Oximetry (%) 96 09/10/18 09:00 GENERAL: AAOx3, no acute distress EYES: DEMARCUS, EOMI ENT: Moist mucus membranes NECK: No JVD, LUNGS: CTA, no wheezes HEART: RRR, no murmurs ABDOMEN: Soft, nontender, BS diminished. b/l TATO drains draining serous fluid. Colostomy in place draining brown liquid. EXTREMITIES: 2+ pulses, no edema. NEUROLOGICAL: Cranial nerves II-XII intact. CBCD WBC 11.9 K/mm3 (4.0-10.0) H 09/10/18 06:00 RBC 3.73 M/mm3 (4.00-5.60) L 09/10/18 06:00 Hgb 11.4 GM/dL (11.7-16.9) L 09/10/18 06:00 Hct 32.7 % (35.4-49) L 09/10/18 06:00 MCV 87.7 fl (80-96) 09/10/18 06:00 MCHC 34.8 g/dl (32.0-35.9) 09/10/18 06:00 RDW 16.7 % (11.9-15.9) H 09/10/18 06:00 Plt Count 340 K/MM3 (134-434) 09/10/18 06:00 MPV 8.8 fl (7.5-11.1) 09/10/18 06:00 CMP Sodium 138 mmol/L (136-145) 09/10/18 06:00 Potassium 3.5 mmol/L (3.5-5.1) 09/10/18 06:00 Chloride 102 mmol/L (98-107) 09/10/18 06:00 Carbon Dioxide 25 mmol/L (21-32) 09/10/18 06:00 Anion Gap 11 MMOL/L (8-16) 09/10/18 06:00 BUN 6 mg/dL (7-18) L 09/10/18 06:00 Creatinine 0.3 mg/dL (0.55-1.3) L 09/10/18 06:00 Creat Clearance w eGFR > 60 (>60) 09/10/18 06:00 Random Glucose 83 mg/dL (74-106) 09/10/18 06:00 Calcium 7.9 mg/dL (8.5-10.1) L 09/10/18 06:00 Total Bilirubin 0.4 mg/dL (0.2-1) 09/06/18 06:30 AST 18 U/L (15-37) 09/06/18 06:30 ALT 20 U/L (13-61) 09/06/18 06:30 Alkaline Phosphatase 68 U/L (45-117) 09/06/18 06:30 Total Protein 5.4 g/dl (6.4-8.2) L 09/06/18 06:30 Albumin 1.8 g/dl (3.4-5.0) L 09/06/18 06:30 CARDIAC ENZYMES Creatine Kinase 25 U/L (26-308) L 09/01/18 16:16 Troponin I < 0.02 ng/ml (0.00-0.05) 09/01/18 16:16 Current Medications Generic Name Dose Route Start Last Admin Trade Name Freq PRN Reason Stop Dose Admin Amlodipine Besylate 5 mg 09/07/18 10:00 09/10/18 11:07 Norvasc - PO 5 mg DAILY [facility] Administration Heparin Sodium (Porcine) 5,000 unit 09/04/18 14:00 09/11/18 06:31 Heparin - SQ 5,000 unit TID [facility]KO Administration Ertapenem 1 gm/ Sodium 50 mls @ 100 mls/hr 09/05/18 11:15 09/10/18 11:08 Chloride IVPB 100 mls/hr DAILY [facility] Administration Melatonin 5 mg 09/06/18 21:13 09/10/18 21:39 Melatonin PO 5 mg HS PRN Administration INSOMNIA Pantoprazole Sodium 40 mg 09/04/18 10:00 09/10/18 11:07 Protonix Iv IVPUSH 40 mg DAILY [facility]KO Administration Promethazine HCl 12.5 mg 09/03/18 15:40 Phenergan Injection - IVPB Q6H PRN NAUSEA AND/OR VOMITING Home Medications Medication Instructions Recorded Amlodipine Besylate [Norvasc -] 5 mg PO DAILY #30 tablet 09/11/18 Ertapenem Sodium [Invanz -] 1 gm IVPB DAILY #7 vial 09/11/18 Microbiology 09/01/18 17:28 Blood - Peripheral Venous Blood Culture - Final NO GROWTH AFTER 5 DAYS INCUBATION 09/01/18 17:28 Blood - Peripheral Venous Blood Culture - Final NO GROWTH AFTER 5 DAYS INCUBATION 09/03/18 10:25 Abscess Gram Stain - Final 09/03/18 10:25 Abscess Body Fluid Culture - Final Proteus Mirabilus - Esbl Produ Alpha Hemolytic Streptococcus Proteus Mirabilus - Esbl Produ#2 09/03/18 10:25 Abscess Anaerobic Culture - Final NO ANAEROBES WERE ISOLATED 09/01/18 17:40 Urine - Urine Clean Catch Urine Culture - Final NO GROWTH OBTAINED ASSESSMENT AND PLAN: Patient is a 48 y/o man with h/o Alcohol abuse, and recent hospitalization for acute diverticulitis with Gram neg bacteremia. Presented with worsening abd pain #Acute diverticulitis with abscess formation: s/p Aguilar procedure. on ertapenem day 7 for ESBL producing proteus, continue diet. Patient is getting Picc line for 7 more days of IV antibiotic. # HTN: cont Norvasc # ETOH abuse. no signs of withdrawal
[2018-09-11] MEDS: ERTAPENEM SODIUM 1 GM in SODIUM CHLORIDE 50 ML IVPB SCH (10:17)
[2018-09-11] MEDS: PANTOPRAZOLE SODIUM 40 MG VIAL IVPUSH SCH (10:17)
[2018-09-11] MEDS: amLODIPine BESYLATE 5 MG TABLET (FP) PO SCH (10:17)
--- NOTE | 2018-09-11 10:49 | PN ---
Progress Note, Physician History of Present Illness: patient doing well no new issues - Current Medication List Current Medications: Active Medications Amlodipine Besylate (Norvasc -) 5 mg PO DAILY [facility] Last Admin: 09/11/18 10:17 Dose: 5 mg Heparin Sodium (Porcine) (Heparin -) 5,000 unit SQ TID [facility] Last Admin: 09/11/18 06:31 Dose: 5,000 unit Ertapenem 1 gm/ Sodium (Chloride) 50 mls @ 100 mls/hr IVPB DAILY [facility] Last Admin: 09/11/18 10:17 Dose: 100 mls/hr Melatonin (Melatonin) 5 mg PO HS PRN PRN Reason: INSOMNIA Last Admin: 09/10/18 21:39 Dose: 5 mg Pantoprazole Sodium (Protonix Iv) 40 mg IVPUSH DAILY [facility] Last Admin: 09/11/18 10:17 Dose: 40 mg - Objective Vital Signs: Vital Signs Temperature 98.1 F 09/11/18 06:33 Pulse Rate 109 H 09/11/18 06:33 Respiratory Rate 20 09/11/18 06:33 Blood Pressure 127/85 09/11/18 06:33 O2 Sat by Pulse Oximetry (%) 96 09/10/18 09:00 Constitutional: Yes: No Distress, Calm Cardiovascular: Yes: Regular Rate and Rhythm Respiratory: Yes: Regular, CTA Bilaterally Gastrointestinal: Yes: Normal Bowel Sounds, Soft Musculoskeletal: Yes: WNL Extremities: Yes: WNL Wound/Incision: Yes: Clean/Dry Neurological: Yes: Alert, Oriented Psychiatric: Yes: Alert, Oriented Labs: CBC, BMP 09/10/18 06:00 09/10/18 06:00 INR, PTT INR 1.36 (0.83-1.09) H 09/02/18 06:30 Assessment/Plan t diverticulitis abd abscess multiple hyponatremia thin etoh abuse plan continue abx finish abx course rest as per the team patient improving
[2018-09-11 14:11] VITALS: BP 137/95; PULSE 108; TEMP 97.7
--- NOTE | 2018-09-11 14:55 | DS ---
Physical Exam: SUBJECTIVE: Patient seen and examined OBJECTIVE: Vital Signs Period Temp Pulse Resp BP Sys/Yañez Pulse Ox Last 24 Hr 97.7 F-98.1 F 108-112 20-20 127-142/85-95 98 PHYSICAL EXAM GENERAL: The patient is awake, alert, and fully oriented, in no acute distress. HEAD: Normal with no signs of trauma. EYES: PERRL, extraocular movements intact, sclera anicteric, conjunctiva clear. ENT: Ears normal, nares patent, oropharynx clear without exudates, moist mucous membranes. NECK: Trachea midline, full range of motion, supple. LUNGS: Breath sounds equal, clear to auscultation bilaterally, no wheezes, no crackles, no accessory muscle use. HEART: Regular rate and rhythm, S1, S2 without murmur, rub or gallop. ABDOMEN: Soft, nontender, nondistended, normoactive bowel sounds, no guarding, no rebound, no hepatosplenomegaly, no masses. EXTREMITIES: 2+ pulses, warm, well-perfused, no edema. NEUROLOGICAL: Cranial nerves II through XII grossly intact. Normal speech, gait not observed. PSYCH: Normal mood, normal affect. SKIN: Warm, dry, normal turgor, no rashes or lesions noted. LABS HOSPITAL COURSE: Date of Admission:09/01/18 Date of Discharge: 09/11/18 Discharge Summary Reason For Visit: DIVERTICULITIS Condition: Improved - Instructions Diet, Activity, Other Instructions: Dr. Boo Discharge Instructions Dear VIVIAN HERRERA, Post Operative Instructions Physical activity Resume your normal everyday activity as tolerated no heavy lifting or exercise or work until seen by your surgeon. You may walk unlimited amounts of and climb stairs. You may not resume driving the car until you are seen in the surgeons office. Wound care Will be done by Visiting Nurse Service. Diet There are no dietary restrictions. Eat healthy, high-fiber foods. Drink 6 to 8 glasses of liquid each day. This will assist in keeping your bowels are regular. Please take 1 multivitamin every day. Pain management You may take Tylenol or acetaminophen or Ibuprofen (for example, Motrin, Advil etc.) Any pain prescription medication ordered should be taken as prescribed for moderate to severe pain. Call Dr. Boo for any of the following: Severe pain not relieved by medication Fever of 101 or higher Excessive bleeding or drainage on dressing Inability to urinate Call the office at [phone] for a post operative appointment in 7 - 10 days. YOUR VISIT You were seen in the hospital for complaints of abdominal pain. You were found to have multiple abscesses. You were seen by the infectious disease doctor and given IV antibiotics for your infection. Due to these extensive abscesses in your colon, you were seen by a general surgeon and underwent a partial colectomy (removal of a section of the colon) with placement of an ostomy bag. After surgery, you were monitored and continued to receive IV antibiotics. Your condition improved throughout your hospital stay. You are being discharged home with A peripherally inserted central catheter line (PICC line) for further administration of your IV antibiotics at home. Additionally, you will have visiting nurse services (VNS) to take care of your ostomy bag as well as to administer your IV medication. MEDICATION INSTRUCTIONS Please take the following medication(s): Please take Ertapenem 1 gm once a day through your IV PICC line for 7 more days. Your last day of this medication will be on September 18, 2018. Please take Amlodipine 5 mg once a day by mouth. You may take Tylenol 650 mg once every 6 hours as needed for pain. REFERRALS Please follow up with your surgeon, Dr. Boo, within 1 week. Please follow up with your primary care physician, Dr. Hair, within 1 week. If you experience worsening abdominal pain, fever/chills, nausea/vomiting, please make an appointment to see your surgeon or proceed to your nearest emergency room immediately. Referrals: Archie Boo MD [Staff Physician] - 1 Week Radha West MD [Staff Physician] - Espinoza Hair [Primary Care Provider] - 1 Week Disposition: VNS/HOME HEALTH CARE - Home Medications Comprehensive Discharge Medication List: Ambulatory Orders Amlodipine Besylate [Norvasc -] 5 mg PO DAILY #30 tablet 09/11/18 Ertapenem Sodium [Invanz -] 1 gm IVPB DAILY #7 vial 09/11/18 Miscellaneous Medical Supply [Outpatient Order] [facility]
== END 2018-09-11 13:58 | disposition home health service (06) | DRG 330 ==
LOC: JER 15:45 → JERBED 22:24 → J8W 09-02 03:35
PROVIDERS: ADMIT Internal Medicine; ATTEND Internal Medicine
PROC: 0D1N0Z4 Bypass Sigmoid Colon to Cutaneous, Open Approach (ICD-10-PCS; 2018-09-03)
PROC: 0DB80ZX Excision of Small Intestine, Open Approach, Diagnostic (ICD-10-PCS; 2018-09-03)
PROC: 0W9G0ZX Drainage of Peritoneal Cavity, Open Approach, Diagnostic (ICD-10-PCS; 2018-09-03)
PROC: 0DTN0ZZ Resection of Sigmoid Colon, Open Approach (ICD-10-PCS; principal; 2018-09-03 09:00)
PROC: 02HV33Z Insertion of Infusion Device into Superior Vena Cava, Percutaneous Approach (ICD-10-PCS; 2018-09-11)
PROC: B548ZZA Ultrasonography of Superior Vena Cava, Guidance (ICD-10-PCS; 2018-09-11)
DX: K57.20 Diverticulitis of large intestine with perforation and abscess without bleeding (principal); E87.1 Hypo-osmolality and hyponatremia; F10.10 Alcohol abuse, uncomplicated; R30.0 Dysuria
CPT/HCPCS: 36415; 36569; 74176-TC; 74177-TC; 77001-TC-FY; 80048; 80053; 82550; 82570; 83605; 83690; 83735; 83930; 83935; 84100; 84300; 84443; 84484; 85025; 85027; 85610; 85730; 86850; 86900; 86901; 87040; 87070; 87075; 87086; 87186; 87205; 88305-TC; 88307-TC; 93005; 93010; 93306-TC; 94010; 94760; 99284-25; C1751; J1644; J7030

== ENCOUNTER 2019-03-29 08:00 | Inpatient (IN) | payer OTHER ==
[2019-04-02 08:52] VITALS: BMI 21.3
[2019-04-05] MEDS ORDERED: ERTAPENEM SODIUM 1 GM in SODIUM CHLORIDE 50 ML IVPB ONE (05:56)
[2019-04-05] MEDS: ALVIMOPAN 12 MG CAP PO SCH ×3 (06:50→23:26)
[2019-04-05] MEDS ORDERED: SUCCINYLCHOLINE CHLORIDE 200 MG/10 ML SYRINGE ONE (07:11)
[2019-04-05] MEDS ORDERED: PROPOFOL 20 ML ONE (07:11)
[2019-04-05] MEDS ORDERED: ROCURONIUM BROMIDE 50 MG/5 ML SYRINGE ONE ×2 (07:11→08:54)
[2019-04-05] MEDS ORDERED: MIDAZOLAM HCL 2 MG/2 ML SINGLE DOSE VIAL ONE (07:12)
--- NOTE | 2019-04-05 07:33 | HP ---
History & Physical Update - History History: No Change - Physical Physical: No Change - Assessment Assessment: No Change - Plan Plan: No Change (review of systems is unremarkable and w/o change since previous admission and ofice evaluation 03/30/19)
[2019-04-05] MEDS ORDERED: ERTAPENEM SODIUM 1 GM VIAL IVPB ONE (08:20)
[2019-04-05] MEDS ORDERED: DEXAMETHASONE SOD PHOSPHATE 4 MG/1 ML VIAL ONE (08:23)
[2019-04-05] MEDS ORDERED: LABETALOL HCL 5 MG/1 ML (100MG/20 ML VIAL) ONE ×3 (09:23→14:20)
[2019-04-05] MEDS ORDERED: hydrALAZINE HCL 20 MG/ML VIAL ONE (09:33)
[2019-04-05] MEDS ORDERED: NEOSTIGMINE METHYLSULFATE 0.5 MG/ML - 10 ML MDV ONE (11:37)
[2019-04-05] MEDS ORDERED: GLYCOPYRROLATE 0.2 MG/1 ML VIAL ONE (11:37)
[2019-04-05] MEDS ORDERED: DESFLURANE GAS 240 ML BOTTLE IH ONE (11:58)
[2019-04-05] MEDS ORDERED: ONDANSETRON 4 MG/2 ML VIAL IVPUSH PRN ×2 (12:16→12:21)
[2019-04-05] MEDS: HYDROmorphone HCl 2 MG/ML VIAL ONE ×2 (12:20→12:25)
[2019-04-05] MEDS ORDERED: SODIUM CHLORIDE 1,000 ML IV SCH ×2 (12:30→16:40)
[2019-04-05] MEDS ORDERED: LACTATED RINGERS SOLUTION 1,000 ML IV SCH (12:30)
[2019-04-05] MEDS: HYDROmorphone *PCA* 10MG/50ML DISP.SYRIN PCA SCH ×2 (12:31→15:23)
--- NOTE | 2019-04-05 12:31 | OP ---
Operative Note - Note: Operative Date: 04/05/19 Pre-Operative Diagnosis: diverticulitis Operation: hartmans reversal, lysis of adhesion Surgeon: Archie Boo Rumper: Cata Garcia Anesthesia: General Estimated Blood Loss (mls): 50 Drains, Volume Out (mls): 100 (hernandez) Fluid Volume Replaced (mls): 1,700 Operative Report Dictated: Yes
[2019-04-05] MEDS ORDERED: HYDROmorphone *PCA* 10MG/50ML DISP.SYRIN ONE (12:33)
[2019-04-05] MEDS ORDERED: ACETAMINOPHEN INJECTION 100 ML IVPB ONE (12:33)
[2019-04-05] MEDS: ACETAMINOPHEN 1000 MG/100 ML VIAL (NON FORMULARY) IVPB ONE ×2 (12:35→15:22)
[2019-04-05] MEDS ORDERED: PROMETHAZINE HCL 25 MG/1 ML VIAL IVPUSH ONE (12:45)
--- NOTE | 2019-04-05 12:54 | EKG ---
Test Reason : Blood Pressure : / mmHG Vent. Rate : 058 BPM Atrial Rate : 058 BPM P-R Int : 138 ms QRS Dur : 098 ms QT Int : 406 ms P-R-T Axes : 041 057 053 degrees QTc Int : 398 ms SINUS BRADYCARDIA OTHERWISE NORMAL ECG WHEN COMPARED WITH ECG OF 01-SEP-2018 17:37, SINUS RHYTHM HAS REPLACED ATRIAL FLUTTER VENT. RATE HAS DECREASED Confirmed by LUIS ARIZA, TREE ([id number]) on 04/05/2019 12:54:18 PM Referred By: Archie Boo Confirmed By:TREE SMITH MD
[2019-04-05] MEDS ORDERED: PROMETHAZINE HCL 25 MG/1 ML VIAL ONE (12:57)
[2019-04-05] MEDS: LABETALOL HCL 5 MG/1 ML (100MG/20 ML VIAL) IVPUSH ONE ×2 (14:00→15:24)
--- NOTE | 2019-04-05 14:02 | SURG ---
Surgery Client Hr Manager Note Client Hr Manager: Cata Garcia PA-C Date of Service: 04/05/19 Diagnosis: diverticulitis Procedure: hartmans reversal, lysis of adhesion I was present for the entirety of the operative procedure. For further detail, please refer to operative report. Visit type - Case Type Case Type: Scheduled - Emergency Emergency Visit: No - New patient This patient is new to me today: Yes Date on this admission: 04/05/19
[2019-04-05] MEDS: ACETAMINOPHEN 325 MG TABLET (FP) PO SCH ×2 (15:24→18:01)
--- NOTE | 2019-04-05 18:29 | PN ---
Teaching Attending Note Name of Resident: Minda Raines ATTENDING PHYSICIAN STATEMENT I saw and evaluated the patient. I reviewed the resident's note and discussed the case with the resident. I agree with the resident's findings and plan as documented. Reason fro consult: HTN HPI: 48 y/o man with h/o untreated HTN, recent diagnosis of diverticulitis and abscess formation s/p colectomy and Gauilar procedure, who presented for reversal. Now POD 0. he was diagnosed with HTN and was discharged on norvasc after last admission. He never followed up after with his PCP . he denies any ANN, CP , SOB or visual changes. has abd pain and feels anxious. reports being heavy alcpholic but stopped after his last surgery OBJECTIVE: Looks anxious , cooperative HEENT: MMM, no LAP in neck . erythematous uvula and oropharynx. CVL: RRR, no MRG Lungs: CTAB Abd: large surgical dressing . absent BS. TTP TATO with red blood Ext : No edema or erythema. No tremor. Neuro: EOMI, round equal pupils, reactive to light, no facila droop, tongue and uvula at mid line. strength 5/5 in upper and lower extremities proximally and distally. sensation to light touch NL. reflexes 2+ biceps and knee jerk b/l ASSESSMENT AND PLAN: 48 y/o man with h/o untreated HTN, recent diagnosis of diverticulitis and abscess formation s/p colectomy and Aguilar procedure, who presented for reversal. 1- HTN urgency ; likely has essential HTN with exacerbation after surgery. -monitor closely for withdrawal sx despite declining heavy alcohol use - give Norvasc once now and then daily - check electrolytes and EKg ( last EKG 04/05 reviewed. ) - had one EKG on 09/01 which showed A flutter in setting of stress. did not recur. he needs prolonged monitoring as out pt . - check EKG . - last echo reviewed. - pre-op labs reviewed. 2- POD 0 s/p Aguilar reversal . - per Sx team 3- DVT PX: per sx . on SCds now. has bloody drainage through TATO. thank you for this consultation . will followup with you
--- NOTE | 2019-04-05 18:56 | CONSULT ---
Consultation: CONSULT REQUEST: We have been asked to medically evaluate this patient for uncontrolled HTN. PCP: Dr. Hair HISTORY OF PRESENT ILLNESS: 48M w/ PMH diverticulitis, hx of alcohol abuse who was admitted to [facility] in August 2018 for treatment of multiple intra-abdominal abscesses and perforated diverticulitis. He was evaluated by gen surg and underwent an open abscess drainage, partial colectomy and Carissa's procedure with placement of ostomy bag. He returned to [facility] for a reversal of the Carissa's procedure and adhesion lysis. IM was consulted because the patient was found to be hypertensive on the floor to the 180s/90s post-operatively. Of note, the patient does not endorse a history of HTN but on his previous admission he was discharged with a prescription for Amlodipine 5mg. The patient took the medication for 1 month, but then did not follow up with his PCP and did not refill the prescription. Pre-operatively the patient's blood pressure was in the 140s/80s-100s. The patient states that physicians make him anxious and he attributes his high BPs in part to this. Patient denies any changes in vision, SOB, chest pains. Patient endorses abdominal pains. Patient states he has yet to pass gas. The patient is on contact precautions because his previous abdominal culture was + for ESBL proteus mirabilis. PAST MEDICAL HISTORY: see HPI PAST SURGICAL HISTORY: Partial colectomy with ostomy placement (Carissa's Procedure) in Sep 2018 Reversal of Carissa's 04/05/2019 Social History: Smoking: former smoker, 1PPD, quit 5yrs ago Alcohol: Prior to surgery in Sep drank 4-5 drinks per week, currently endorses "drinking alcohol very rarely" but refused to quantify exactly how much Drugs: daily marijuana smoker Family History: Mother: HTN Allergies No Known Allergies Allergy (Verified 04/05/2019 18:00) HOME MEDICATIONS: None REVIEW OF SYSTEMS: CONSTITUTIONAL: loss of appetite, Absent: fever, chills, diaphoresis, generalized weakness, malaise, weight change HEENT: Absent: rhinorrhea, nasal congestion, throat pain, throat swelling, difficulty swallowing, mouth swelling, ear pain, eye pain, visual changes CARDIOVASCULAR: Absent: chest pain, syncope, palpitations, irregular heart rate, lightheadedness , peripheral edema RESPIRATORY: Absent: cough, shortness of breath, dyspnea with exertion, orthopnea, wheezing, stridor, hemoptysis GASTROINTESTINAL: abdominal pain, Absent: abdominal distension, nausea, vomiting, diarrhea, constipation, melena , hematochezia GENITOURINARY: Absent: dysuria, frequency, urgency, hesitancy, hematuria, flank pain, genital pain MUSCULOSKELETAL: Absent: myalgia, arthralgia, joint swelling, back pain, neck pain SKIN: Absent: rash, itching, pallor HEMATOLOGIC/IMMUNOLOGIC: Absent: easy bleeding, easy bruising, lymphadenopathy, frequent infections ENDOCRINE: Absent: unexplained weight gain, unexplained weight loss, heat intolerance, cold intolerance NEUROLOGIC: Absent: headache, focal weakness or paresthesias, dizziness, unsteady gait, seizure, mental status changes, bladder or bowel incontinence PSYCHIATRIC: anxiety, Absent: depression, suicidal or homicidal ideation, hallucinations. PHYSICAL EXAMINATION Vital Signs - 24 hr 04/05/19 04/05/19 04/05/19 06:25 06:44 12:15 Temperature 98.7 F Pulse Rate 63 82 Respiratory 16 20 Rate Blood Pressure 142/100 140/77 171/99 H O2 Sat by Pulse 100 99 Oximetry (%) 04/05/19 04/05/19 04/05/19 12:30 12:45 13:00 Temperature 20 F L Pulse Rate 83 85 85 Respiratory 22 H 16 20 Rate Blood Pressure 181/93 H 185/100 H 185/100 H O2 Sat by Pulse 99 99 99 Oximetry (%) 04/05/19 04/05/19 04/05/19 13:15 13:30 13:45 Temperature 16 F L Pulse Rate 82 95 H 90 Respiratory 16 22 H 14 Rate Blood Pressure 183/99 H 182/90 H 174/98 H O2 Sat by Pulse 100 100 Oximetry (%) 04/05/19 04/05/19 04/05/19 14:00 14:15 14:30 Temperature Pulse Rate 96 H 83 82 Respiratory 14 18 14 Rate Blood Pressure 165/94 167/105 H 167/96 O2 Sat by Pulse 99 100 100 Oximetry (%) 04/05/19 04/05/19 04/05/19 14:45 15:00 16:04 Temperature 98.2 F Pulse Rate 86 86 Respiratory 14 14 Rate Blood Pressure 155/89 155/89 O2 Sat by Pulse 100 100 100 Oximetry (%) 04/05/19 04/05/19 16:31 17:30 Temperature 97.7 F Pulse Rate 82 69 Respiratory 20 20 Rate Blood Pressure 160/106 H 180/105 H O2 Sat by Pulse 98 Oximetry (%) GENERAL: Awake, alert, and fully oriented, in no acute distress. HEAD: Normal with no signs of trauma. EYES: Pupils equal, round and reactive to light, extraocular movements intact, sclera anicteric, conjunctiva clear. No lid lag. EARS, NOSE, THROAT: Ears normal, nares patent, oropharynx clear without exudates. Moist mucous membranes. NECK: Normal range of motion, supple LUNGS: Breath sounds equal, clear to auscultation bilaterally. No wheezes, and no crackles. No accessory muscle use. HEART: Regular rate and rhythm, normal S1 and S2 without murmur. ABDOMEN: Soft, very tender to palpation, normoactive BS, surgical dressing in place and not removed (C/D/I), surgical drain present in RLQ draining bloody fluid, not distended, guarding. : Hernandez in place draining clear yellow urine MUSCULOSKELETAL: Normal range of motion at all joints. No bony deformities or tenderness. UPPER EXTREMITIES: 2+ pulses, warm, well-perfused. No cyanosis. No clubbing. No peripheral edema. LOWER EXTREMITIES: 2+ pulses, warm, well-perfused. No calf tenderness. No peripheral edema. NEUROLOGICAL: Cranial nerves II-XII intact. Normal speech. Gait not observed. PSYCHIATRIC: Cooperative. Good eye contact. Appropriate mood and affect. SKIN: Warm, dry, normal turgor, no rashes or lesions noted. Active Medications Generic Name Dose Route Start Last Admin Trade Name Kaylie PRN Reason Stop Dose Admin Acetaminophen 650 mg 04/05/19 12:30 04/05/19 18:01 Tylenol - PO 650 mg Q6H [facility] Administration Alvimopan 12 mg 04/05/19 07:00 04/05/19 15:22 Entereg Capsule (Restricted) - PO Not Given BID [facility] Amlodipine Besylate 5 mg 04/05/19 18:30 Norvasc - PO DAILY [facility] Heparin Sodium (Porcine) 5,000 unit 04/05/19 22:00 Heparin - SQ BID [facility] Hydromorphone HCl 10 mg 04/05/19 12:30 04/05/19 15:23 Hydromorphone 10 Mg/50 Ml-Ns [employer]PPORT[employer]ITY ASSISTANT 04/06/19 12:29 Not Given EQUAL OPPORTUNITY ASSISTANT [facility] Protocol Sodium Chloride 1,000 mls @ 150 mls/hr 04/05/19 16:40 04/05/19 17:01 Normal Saline - IV 150 mls/hr ASDIR [facility] Administration Ondansetron HCl 4 mg 04/05/19 12:16 04/05/19 12:30 Zofran Injection IVPUSH 4 mg Q6H PRN Administration NAUSEA AND/OR VOMITING Ondansetron HCl 4 mg 04/05/19 12:21 Zofran Injection IVPUSH Q6H PRN NAUSEA AND/OR VOMITING ASSESSMENT/PLAN: Mr. Hamilton is a 48 y/ o man w/ PMH diverticulitis, hx of alcohol abuse who is s/ p reversal of the Carissa's procedure (done in 09/2018 at [facility]) and adhesion lysis. Medicine is consulted for evaluation of HTN to the 180s/90s. 1. HTN- Most likely essential HTN as the patient was previously treated for HTN. On physical exam patient appears medically stable but will order stat labs and an EKG to rule out hypertensive emergency. Will resume Amlodipine as HTN successfully treated with this medication in the past. Pre-operatively the patient had an echo which was unconcerning, and BPs in the ~140s/90s. - F/U stat BMP, CBC, Mag, Phos - AM CMP/ CBC - Start Amlodipine 5mg PO now - Amlodipine 5mg PO daily 10am - F/U stat EKG 2. S/P Carissa's Procedure reversal- Post-op care per general surgery - EQUAL OPPORTUNITY ASSISTANT pump for pain control - Tylenol 650 PO q6 for pain - Zofran for nausea - NPO until passing gas, then advance diet as tolerated - Early ambulation as tolerated - Remove hernandez when ambulating FEN NS 150cc/hr Replete PRN NPO until passes gas then advance diet as tolerated DVT PPX SCDs Dispo: We will continue to follow the patient. Thank you for this consultative opportunity. Visit type - Emergency Visit Emergency Visit: No - New Patient This patient is new to me today: Yes Date on this admission: 04/05/19 - Critical Care Critical Care patient: No ATTENDING PHYSICIAN STATEMENT I saw and evaluated the patient. I reviewed the resident's note and discussed the case with the resident. I agree with the resident's findings and plan as documented. SUBJECTIVE: OBJECTIVE: ASSESSMENT AND PLAN:
[2019-04-05] MEDS: amLODIPine BESYLATE 5 MG TABLET (FP) PO SCH (19:01)
[2019-04-05 21:25] LABS: HEMATOCRIT 45.5 % (35.4-49); HEMOGLOBIN 15.8 GM/dL (11.7-16.9); MCHC 34.7 g/dl (32.0-35.9); MEAN CELL VOLUME 89.5 fl (80-96); MEAN PLT VOLUME 10.2 fl (7.5-11.1); PLATELET COUNT 161 K/MM3 (134-434); RBC 5.08 M/mm3 (4.00-5.60); RDW 14.1 % (11.9-15.9); WHITE BLOOD COUNT 11.8 K/mm3 (4.0-10.0)
[2019-04-05 21:46] LABS: BLOOD UREA NITROGEN 9.4 mg/dL (7-18); CALCIUM 8.6 mg/dL (8.5-10.1); CREATININE 0.6 mg/dL (0.55-1.3); MAGNESIUM 1.7 mg/dL (1.8-2.4); PHOSPHOROUS 3.5 mg/dL (2.5-4.9); POTASSIUM 3.8 mmol/L (3.5-5.1)
[2019-04-05] MEDS ORDERED: PT OWN MED DRAWER 7, Y5N ONE (23:25)
[2019-04-05] MEDS: HEPARIN NA (PORCINE) 5,000 UNITS/ML 1ML VIAL SQ SCH (23:26)
[2019-04-06] MEDS: ACETAMINOPHEN 325 MG TABLET (FP) PO SCH ×4 (00:30→18:24)
[2019-04-06 07:02] LABS: HEMATOCRIT 44.1 % (35.4-49); HEMOGLOBIN 15.5 GM/dL (11.7-16.9); MCH 31.5 pg (25.7-33.7); MCHC 35.2 g/dl (32.0-35.9); MEAN CELL VOLUME 89.4 fl (80-96); MEAN PLT VOLUME 10.1 fl (7.5-11.1); PLATELET COUNT 174 K/MM3 (134-434); RBC 4.93 M/mm3 (4.00-5.60); RDW 13.7 % (11.9-15.9); WHITE BLOOD COUNT 12.8 K/mm3 (4.0-10.0)
[2019-04-06 07:15] LABS: ALBUMIN 3.8 g/dl (3.4-5.0); BILIRUBIN,TOTAL 0.8 mg/dL (0.2-1); BLOOD UREA NITROGEN 7.6 mg/dL (7-18); CALCIUM 8.8 mg/dL (8.5-10.1); CREATININE 0.7 mg/dL (0.55-1.3); POTASSIUM 3.6 mmol/L (3.5-5.1)
--- NOTE | 2019-04-06 08:27 | PN ---
Progress Note (short form) - Note Progress Note: POD#1 Pt without any complaints of SOB/CP. Pain around a 2 to 3 increasing to 5 with movement. Slight nausea overnight. Vital Signs Period Temp Pulse Resp BP Sys/Yañez Pulse Ox Last 24 Hr 16 F-98.7 F 69-96 14-22 140-185/76-108 98-100 UOP- clear urine. 1600ml TATO-40 ml serosangrenous GEN: A&0x3, NAD CV: RRR Lungs: CTA b/l ABD; soft, non-distended, inc tenderness. Midline and previous ostomy site dressing changed today. Fascia intact with no purulent drainage. LE: no calf tenderness or swelling noted b/l. CBC, BMP // 06:30 04/06/ 06:30 A/p: 48 yo male s/p harmans reversal and Lysis of adhesion Continue npo except medications, started norvasc for HTN IV hydration, decrease to 125ml OOB/ambulate Ng removed this am/TOV DVT ppx with ambulation, heparin SQ, SCDs Replete K, hypokalemia, Continue [employer] EDUCATION [employer]RICULUM SPECIALIST D/w Dr. Boo
[2019-04-06] MEDS ORDERED: MAGNESIUM SULF 50% (8.12 MEQ/2 ML-1 GM VIAL) IVPB ONE (08:45)
[2019-04-06] MEDS: SODIUM CHLORIDE 1,000 ML IV SCH (08:45)
[2019-04-06] MEDS: KCL 10 MEQ IVPB 10 MEQ/100 ML INFUS.BAG IVPB SCH ×3 (10:08→12:34)
[2019-04-06] MEDS ORDERED: PT OWN MED DRAWER 7, Y5N ONE ×3 (10:39→21:11)
[2019-04-06] MEDS: amLODIPine BESYLATE 5 MG TABLET (FP) PO SCH (10:43)
[2019-04-06] MEDS: ALVIMOPAN 12 MG CAP PO SCH ×2 (10:43→21:18)
[2019-04-06] MEDS: HEPARIN NA (PORCINE) 5,000 UNITS/ML 1ML VIAL SQ SCH ×2 (10:43→21:19)
--- NOTE | 2019-04-06 12:16 | PN ---
Progress Note (short form) - Note Progress Note: Anesthesiology Post-op/Pain Service POD#1 s/p Aguilar reversal under GA. Pt. doing well this morning. No anesthesia-related issues. VSS. CURTAIN MENDER managing pain appropriately. 48 y.o. with stable post-operative course. Continue CURTAIN MENDER for now.
--- NOTE | 2019-04-06 16:20 | PN ---
Physical Exam: SUBJECTIVE: Patient seen and examined at the bedside this morning. He was mildly anxious and in moderate amount of pain when trying to move around but stated that overall it was tolerable. Fluids were decreased to 125cc/hr and hernandez was removed so patient could try to ambulate. Patient still not passing gas. BPs remained elevated despite addition of 5mg amlodipine. OBJECTIVE: Vital Signs Period Temp Pulse Resp BP Sys/Yañez Pulse Ox Last 24 Hr 97.6 F-98.5 F 67-93 20-20 140-185/76-106 98-100 GENERAL: Awake, alert, and fully oriented, in no acute distress. HEAD: Normal with no signs of trauma. EYES: Pupils equal, round and reactive to light, extraocular movements intact, sclera anicteric, conjunctiva clear. No lid lag. EARS, NOSE, THROAT: Ears normal, nares patent, oropharynx clear without exudates. Moist mucous membranes. NECK: Normal range of motion, supple LUNGS: Breath sounds equal, clear to auscultation bilaterally. No wheezes, and no crackles. No accessory muscle use. HEART: Regular rate and rhythm, normal S1 and S2 without murmur. ABDOMEN: Soft, very tender to palpation, normoactive BS, surgical dressing in place and not removed (C/D/I), surgical drain present in RLQ draining bloody fluid, not distended, guarding. : Hernandez in place draining clear yellow urine MUSCULOSKELETAL: Normal range of motion at all joints. No bony deformities or tenderness. UPPER EXTREMITIES: 2+ pulses, warm, well-perfused. No cyanosis. No clubbing. No peripheral edema. LOWER EXTREMITIES: 2+ pulses, warm, well-perfused. No calf tenderness. No peripheral edema. NEUROLOGICAL: Cranial nerves II-XII intact. Normal speech. Gait not observed. PSYCHIATRIC: Cooperative. Good eye contact. Appropriate mood and affect. SKIN: Warm, dry, normal turgor, no rashes or lesions noted. Laboratory Results - last 24 hr 04/05/19 04/05/19 04/06/19 20:20 20:20 06:30 WBC 11.8 H 12.8 H RBC 5.08 4.93 Hgb 15.8 15.5 Hct 45.5 44.1 MCV 89.5 89.4 MCH 31.0 31.5 MCHC 34.7 35.2 RDW 14.1 13.7 Plt Count 161 174 MPV 10.2 10.1 Sodium 139 Potassium 3.8 Chloride 105 Carbon Dioxide 25 Anion Gap 9 BUN 9.4 Creatinine 0.6 Est GFR (CKD-EPI)AfAm 135.87 Est GFR (CKD-EPI)NonAf 117.23 Random Glucose 126 H Calcium 8.6 Phosphorus 3.5 Magnesium 1.7 L Total Bilirubin AST ALT Alkaline Phosphatase Total Protein Albumin 04/06/19 06:30 WBC RBC Hgb Hct MCV MCH MCHC RDW Plt Count MPV Sodium 136 Potassium 3.6 Chloride 101 Carbon Dioxide 26 Anion Gap 9 BUN 7.6 Creatinine 0.7 Est GFR (CKD-EPI)AfAm 127.53 Est GFR (CKD-EPI)NonAf 110.04 Random Glucose 89 Calcium 8.8 Phosphorus Magnesium Total Bilirubin 0.8 AST 18 ALT 18 Alkaline Phosphatase 55 Total Protein 7.0 Albumin 3.8 Active Medications Generic Name Dose Route Start Last Admin Trade Name Freq PRN Reason Stop Dose Admin Acetaminophen 650 mg 04/05/19 12:30 04/06/19 12:36 Tylenol - PO 650 mg Q6H CHEKO Administration Alvimopan 12 mg 04/05/19 07:00 04/06/19 10:43 Entereg Capsule (Restricted) - PO 12 mg BID CHEKO Administration Amlodipine Besylate 10 mg 04/06/19 11:13 Norvasc - PO DAILY CHEKO Heparin Sodium (Porcine) 5,000 unit 04/05/19 22:00 04/06/19 10:43 Heparin - SQ 5,000 unit BID CHEKO Administration Sodium Chloride 1,000 mls @ 125 mls/hr 04/06/19 08:38 04/06/19 08:45 Normal Saline - IV 125 mls/hr ASDIR CHEKO Administration Ondansetron HCl 4 mg 04/05/19 12:16 04/05/19 12:30 Zofran Injection IVPUSH 4 mg Q6H PRN Administration NAUSEA AND/OR VOMITING Ondansetron HCl 4 mg 04/05/19 12:21 Zofran Injection IVPUSH Q6H PRN NAUSEA AND/OR VOMITING ASSESSMENT/PLAN: Mr. Hamilton is a 48 y/ o man w/ PMH diverticulitis, hx of alcohol abuse who is s/ p reversal of the Carissa's procedure (done in 09/2018 at [facility]) and adhesion lysis. Medicine is consulted for evaluation of HTN to the 180s/90s. 1. HTN- Most likely essential HTN as the patient was previously treated for HTN. - F/U morning labs - Increasing Amlodipine to 10mg PO daily - Continue to follow BPs while patient hospitalized, adjust as necessary. -Recommend follow up with PCP as outpatient. 2. S/P Carissa's Procedure reversal- Post-op care per general surgery - CLIENT CARE REPRESENTATIVE pump for pain control - Tylenol 650 PO q6 for pain - Zofran for nausea - NPO until passing gas, then advance diet as tolerated - Early ambulation as tolerated - Hernandez removed today (04/06) FEN NS 150cc/hr Replete PRN NPO until passes gas then advance diet as tolerated DVT PPX SCDs Dispo: We will continue to follow the patient. Thank you for this consultative opportunity. Visit type - Emergency Visit Emergency Visit: Yes ED Registration Date: 04/05/19 Care time: The patient presented to the Emergency Department on the above date and was hospitalized for further evaluation of their emergent condition. - New Patient This patient is new to me today: No - Critical Care Critical Care patient: No ATTENDING PHYSICIAN STATEMENT I saw and evaluated the patient. I reviewed the resident's note and discussed the case with the resident. I agree with the resident's findings and plan as documented. SUBJECTIVE: OBJECTIVE: ASSESSMENT AND PLAN:
--- NOTE | 2019-04-06 18:41 | PN ---
Teaching Attending Note Name of Resident: Minda Raines ATTENDING PHYSICIAN STATEMENT I saw and evaluated the patient. I reviewed the resident's note and discussed the case with the resident. I agree with the resident's findings and plan as documented. SUBJECTIVE: No fever or chills. No ANN , feels better , less anxious than yesterday . No BM or flatus OBJECTIVE: calm HEENT: MMM, CV: RRR, no MRG Lungs: CTAB Abd: large surgical dressing . decreased BS . TTP. TATO with red blood Ext : No edema or erythema. No tremor. ASSESSMENT AND PLAN: 48 y/o man with h/o untreated HTN, recent diagnosis of diverticulitis and abscess formation s/p colectomy and Aguilar procedure, who presented for reversal. 1- HTN : elevated this am , anxiety, pain and IVF contributing - increased norvasc -IVF decreased by surgical team, might be able to decrease norvasc after dc IVF - low salt diet 2- POD 2 s/p Aguilar reversal . - per Sx team 3- DVT PX: per sx, SCDS and Heparin sq
[2019-04-07] MEDS: ACETAMINOPHEN 325 MG TABLET (FP) PO SCH ×5 (00:44→21:50)
[2019-04-07] MEDS ORDERED: amLODIPine BESYLATE 10 MG TABLET (FP) PO ONE (04:37)
[2019-04-07] MEDS: SODIUM CHLORIDE 1,000 ML IV SCH (04:57)
[2019-04-07 06:39] LABS: BASO % 0.2 % (0-2.0); EOS % 0.1 % (0-4.5); HEMATOCRIT 47.9 % (35.4-49); LYMPH % 8.2 % (8-40); MCH 31.5 pg (25.7-33.7); MCHC 35.4 g/dl (32.0-35.9); MEAN PLT VOLUME 9.7 fl (7.5-11.1); MONO % 5.7 % (3.8-10.2); NEUT % 85.8 % (42.8-82.8); PLATELET COUNT 191 K/MM3 (134-434); RBC 5.39 M/mm3 (4.00-5.60); RDW 14.1 % (11.9-15.9); WHITE BLOOD COUNT 14.1 K/mm3 (4.0-10.0)
[2019-04-07 07:09] LABS: BLOOD UREA NITROGEN 9.1 mg/dL (7-18); CALCIUM 9.5 mg/dL (8.5-10.1); CREATININE 0.5 mg/dL (0.55-1.3); MAGNESIUM 1.9 mg/dL (1.8-2.4); PHOSPHOROUS 3.3 mg/dL (2.5-4.9); POTASSIUM 3.8 mmol/L (3.5-5.1)
--- NOTE | 2019-04-07 09:28 | PN ---
Progress Note (short form) - Note Progress Note: 48yo M s/p Aguilar reversal, see and examined at bedside. Pt denies fever, chills, n/v. Pt states that he still has not passed flatus. Pt states abd pain is controlled. Last Vital Signs Temp Pulse Resp BP Pulse Ox 98.2 F 112 H 20 180/88 H 100 04/07/19 06:48 04/07/19 06:48 04/07/19 06:48 04/07/19 06:48 04/06/19 09:00 CBC, BMP 04/07/19 06:00 04/07/19 06:00 PE: Gen: a&O X3 Resp: breathing comfortably Abd: soft, nondistended, mild tenderness, incisions are clean with serosanguinous dressing, packing in place. Ext: no edeam Problem List - Problems (1) History of colostomy reversal Assessment/Plan: Plan -continue entereg til resumption of bowel activity -NPO, IVF -emphasize OOB/ambulate -DVT ppx Code(s): Z98.890 - OTHER SPECIFIED POSTPROCEDURAL STATES
[2019-04-07] MEDS ORDERED: LISINOPRIL 20 MG TABLET (FP) PO ONE (09:42)
[2019-04-07] MEDS ORDERED: PT OWN MED DRAWER 7, Y5N ONE ×2 (09:47→21:44)
[2019-04-07] MEDS: HEPARIN NA (PORCINE) 5,000 UNITS/ML 1ML VIAL SQ SCH ×2 (10:11→21:48)
[2019-04-07] MEDS: amLODIPine BESYLATE 10 MG TABLET (FP) PO SCH (10:11)
[2019-04-07] MEDS: ALVIMOPAN 12 MG CAP PO SCH ×2 (10:12→23:45)
[2019-04-07] MEDS ORDERED: oxyCODONE HCL 5 MG TABLET PO PRN (11:55)
--- NOTE | 2019-04-07 13:18 | PN ---
Physical Exam: SUBJECTIVE: Patient seen and examined at the bedside. He states he is feeling improved since yesterday and has been ambulating. The patient states he is in mild pain but his pain medications help. He is burping but denied passing gas or having a BM. The patient was still hypertensive to the 180s/80s last night/ early this morning. OBJECTIVE: Vital Signs Period Temp Pulse Resp BP Sys/Yañez Pulse Ox Last 24 Hr 98.2 F-99.5 F 82-115 18-20 159-185/82-104 GENERAL: Awake, alert, and fully oriented, in no acute distress. HEAD: Normal with no signs of trauma. EYES: Pupils equal, round and reactive to light, extraocular movements intact, sclera anicteric, conjunctiva clear. No lid lag. EARS, NOSE, THROAT: Ears normal, nares patent, oropharynx clear without exudates. Moist mucous membranes. NECK: Normal range of motion, supple LUNGS: Breath sounds equal, clear to auscultation bilaterally. No wheezes, and no crackles. No accessory muscle use. HEART: Regular rate and rhythm, normal S1 and S2 without murmur. ABDOMEN: Soft, very tender to palpation, normoactive BS, surgical dressing in place and not removed (C/D/I). MUSCULOSKELETAL: Normal range of motion at all joints. No bony deformities or tenderness. UPPER EXTREMITIES: 2+ pulses, warm, well-perfused. No cyanosis. No clubbing. No peripheral edema. LOWER EXTREMITIES: 2+ pulses, warm, well-perfused. No calf tenderness. No peripheral edema. NEUROLOGICAL: Cranial nerves II-XII intact. Normal speech. Gait not observed. PSYCHIATRIC: Cooperative. Good eye contact. Appropriate mood and affect. SKIN: Warm, dry, normal turgor, no rashes or lesions noted. Laboratory Results - last 24 hr 04/07/19 04/07/19 06:00 06:00 WBC 14.1 H RBC 5.39 Hgb 17.0 H Hct 47.9 MCV 89.0 MCH 31.5 MCHC 35.4 RDW 14.1 Plt Count 191 MPV 9.7 Absolute Neuts (auto) 12.1 H Neutrophils % 85.8 H D Lymphocytes % 8.2 D Monocytes % 5.7 Eosinophils % 0.1 D Basophils % 0.2 Nucleated RBC % 0 Sodium 133 L Potassium 3.8 Chloride 98 Carbon Dioxide 22 Anion Gap 12 BUN 9.1 Creatinine 0.5 L Est GFR (CKD-EPI)AfAm 146.45 Est GFR (CKD-EPI)NonAf 126.36 Random Glucose 88 Calcium 9.5 Phosphorus 3.3 Magnesium 1.9 Active Medications Generic Name Dose Route Start Last Admin Trade Name Freq PRN Reason Stop Dose Admin Acetaminophen 650 mg 04/05/19 12:30 04/07/19 06:36 Tylenol - PO Not Given Q6H CHEKO Alvimopan 12 mg 04/05/19 07:00 04/07/19 10:12 Entereg Capsule (Restricted) - PO 12 mg BID CHEKO Administration Amlodipine Besylate 10 mg 04/06/19 11:13 04/07/19 10:11 Norvasc - PO 10 mg DAILY CHEKO Administration Heparin Sodium (Porcine) 5,000 unit 04/05/19 22:00 04/07/19 10:11 Heparin - SQ 5,000 unit BID CHEKO Administration Lactated Ringer's 1,000 ml in 1,000 mls @ 125 mls/hr 04/07/19 12:00 Lactated Ringers Solution IV ASDIR CHEKO Ondansetron HCl 4 mg 04/05/19 12:16 04/05/19 12:30 Zofran Injection IVPUSH 4 mg Q6H PRN Administration NAUSEA AND/OR VOMITING Ondansetron HCl 4 mg 04/05/19 12:21 Zofran Injection IVPUSH Q6H PRN NAUSEA AND/OR VOMITING Oxycodone HCl 5 mg 04/07/19 11:55 Roxicodone - PO Q4H PRN PAIN LEVEL 1-5 Oxycodone HCl 10 mg 04/07/19 11:55 Roxicodone - PO Q4H PRN PAIN LEVEL 6-10 ASSESSMENT/PLAN: Mr. Hamilton is a 48 y/ o man w/ PMH diverticulitis, hx of alcohol abuse who is s/ p reversal of the Carissa's procedure (done in 09/2018 at [facility]) and adhesion lysis. Medicine is consulted for evaluation of HTN to the 180s/90s. 1. HTN- Most likely essential HTN as the patient was previously treated for HTN. Patient continued to have elevated BPs on 10mg Amlodipine, added 1 dose of Lisinopril 20mg and this brought the patient's BP to 139/96. - F/U morning labs - Continue Amlodipine to 10mg PO daily - Add Lisinopril 20mg PO daily - Continue to follow BPs while patient hospitalized, adjust as necessary. - Recommend follow up with PCP as outpatient to address HTN treatment 2. S/P Carissa's Procedure reversal- Post-op care per general surgery - Tylenol 650 PO q6 for pain - Zofran for nausea - NPO until passing gas, then advance diet as tolerated - Continued ambulation FEN LR 125cc/hr Replete PRN NPO until passes gas then advance diet as tolerated DVT PPX Ambulate Dispo: We will continue to follow the patient. Thank you for this consultative opportunity. Visit type - Emergency Visit Emergency Visit: Yes ED Registration Date: 04/05/19 Care time: The patient presented to the Emergency Department on the above date and was hospitalized for further evaluation of their emergent condition. - New Patient This patient is new to me today: No - Critical Care Critical Care patient: No - Discharge Referral Referred to [facility] Med P.C.: No ATTENDING PHYSICIAN STATEMENT I saw and evaluated the patient. I reviewed the resident's note and discussed the case with the resident. I agree with the resident's findings and plan as documented. SUBJECTIVE: OBJECTIVE: ASSESSMENT AND PLAN:
[2019-04-07] MEDS: LACTATED RINGERS SOLUTION 1,000 ML/1,000 ML INFUS.BAG IV SCH (17:59)
[2019-04-08] MEDS: ACETAMINOPHEN 325 MG TABLET (FP) PO SCH (00:50)
[2019-04-08] MEDS ORDERED: PT OWN MED DRAWER 7, Y5N ONE ×2 (03:03→11:52)
[2019-04-08] MEDS ORDERED: ACETAMINOPHEN 325 MG TABLET (FP) PO PRN (05:25)
[2019-04-08 06:13] LABS: HEMATOCRIT 46.7 % (35.4-49); HEMOGLOBIN 16.4 GM/dL (11.7-16.9); MCH 31.3 pg (25.7-33.7); MEAN CELL VOLUME 89.3 fl (80-96); MEAN PLT VOLUME 10.1 fl (7.5-11.1); PLATELET COUNT 215 K/MM3 (134-434); RBC 5.23 M/mm3 (4.00-5.60); RDW 13.9 % (11.9-15.9); WHITE BLOOD COUNT 12.9 K/mm3 (4.0-10.0)
[2019-04-08 06:34] LABS: BLOOD UREA NITROGEN 12.2 mg/dL (7-18); CALCIUM 9.2 mg/dL (8.5-10.1); CREATININE 0.5 mg/dL (0.55-1.3); POTASSIUM 3.7 mmol/L (3.5-5.1)
--- NOTE | 2019-04-08 08:05 | PN ---
Progress Note (short form) - Note Progress Note: POD#3 Pt without any nausea/emesis. No flatus or bowel movements yet. Pain tolerated, not sure if he used any oral pain medications yesterday. OOB and ambulating in the hallways. Vital Signs Period Temp Pulse Resp BP Sys/Yañez Pulse Ox Last 24 Hr 97.7 F-99.5 F 99-115 16-20 129-159/80-104 98-100 GEN: A&0x3, NAD ABD: soft, non-distended, inc tenderness. Inc dressing changed today. midline incision with packing. No drainage/fascia intact. Ostomy site/clean and without purulent drainage/fascia intact. CBC, BMP 04/08/19 05:00 04/08/19 05:00 A/p: 48 yo male s/p hartamns reversal with TAYLOR Will continue npo until bowel function resumes Hypokalemia resolved after repletion. IVF changed to lactate ringers DVT ppx with heparin SQ/OOB and ambulate Oral pain medications/Entereg until bowel function resumes. D/w Dr. Boo VNS ordered in anticipation of discharge planning. Dressing care instructions written for daily dressing changes.
[2019-04-08] MEDS ORDERED: NAPH,MB-DB/K PH,MBDB POWDER PACKET PO ONE (09:41)
--- NOTE | 2019-04-08 10:48 | PATH ---
Surgical Pathology Report Patient Name: VIVIAN HERRERA Med. Rec. #: [id number] /Age/Gender: 1970 (Age: 48) / M Account: [id number] Location: [facility] MED/SURG Taken: 04/05/2019 Received: 04/05/2019 Reported: 04/08/2019 Physicians: Archie Boo MD Specimen(s) Received END TISSUE FROM COLOSTOMY AND SKIN Clinical History S/P diverticulitis with perforation Final Diagnosis END TISSUE FROM COLOSTOMY AND SKIN, EXCISION: PORTION OF COLON AND SKIN CONSISTENT WITH COLOSTOMY SPECIMEN WITH FOCAL MILD NONSPECIFIC CHRONIC INFLAMMATION. TWO REACTIVE LYMPH NODES. Electronically Signed Mushtaq Ashton M.D. Gross Description Specimen received in formalin labeled "end tissue from colostomy and skin" and consists of segment of colostomy specimen. The segment of colon measures 1.5cm in length and 10cm in average circumference. At one end there is skin which is sutured. The colonic mucosa show no masses or polyp. Chief Deputy Sheriff sections are submitted in 3 cassettes. 1: margin of colon; 2 and 3 colon with skin and one whole lymph node in each cassette. KWKwaku/04/05/2019 libia/04/05/2019
[2019-04-08] MEDS: ALVIMOPAN 12 MG CAP PO SCH (12:07)
[2019-04-08] MEDS: LISINOPRIL 20 MG TABLET (FP) PO SCH (12:07)
[2019-04-08] MEDS: amLODIPine BESYLATE 10 MG TABLET (FP) PO SCH (12:07)
[2019-04-08] MEDS: HEPARIN NA (PORCINE) 5,000 UNITS/ML 1ML VIAL SQ SCH ×2 (12:09→21:18)
--- NOTE | 2019-04-08 14:58 | PN ---
Teaching Attending Note Name of Resident: Minda Raines ATTENDING PHYSICIAN STATEMENT I saw and evaluated the patient. I reviewed the resident's note and discussed the case with the resident. I agree with the resident's findings and plan as documented. SUBJECTIVE: Patient is feeling better ,No BM yet , and unable to pass gas. OBJECTIVE: Vital Signs (72 hours) 04/05/19 04/05/19 04/05/19 15:00 16:04 16:31 Temperature 98.2 F Pulse Rate 86 82 Respiratory 14 20 Rate Blood Pressure 155/89 160/106 H O2 Sat by Pulse 100 100 98 Oximetry (%) 04/05/19 04/05/19 04/05/19 17:30 20:21 20:31 Temperature 97.7 F 97.6 F Pulse Rate 69 93 H 93 H Respiratory 20 20 20 Rate Blood Pressure 180/105 H 170/100 150/100 O2 Sat by Pulse 99 Oximetry (%) 04/05/19 04/06/19 04/06/19 21:00 00:31 02:27 Temperature 98.2 F Pulse Rate 80 70 Respiratory 20 20 20 Rate Blood Pressure 140/80 145/80 O2 Sat by Pulse 99 99 Oximetry (%) 04/06/19 04/06/19 04/06/19 05:51 09:00 10:00 Temperature 98.2 F 98.5 F Pulse Rate 69 67 Respiratory 20 20 Rate Blood Pressure 149/76 185/95 H O2 Sat by Pulse 100 Oximetry (%) 04/06/19 04/06/19 04/06/19 14:00 16:30 20:00 Temperature 98.3 F 98.2 F 98.6 F Pulse Rate 82 84 83 Respiratory 20 20 18 Rate Blood Pressure 166/89 165/83 163/95 O2 Sat by Pulse Oximetry (%) 04/06/19 04/07/19 04/07/19 21:00 02:32 04:31 Temperature 98.2 F Pulse Rate 106 H 104 H Respiratory 18 20 20 Rate Blood Pressure 185/82 H 170/85 O2 Sat by Pulse Oximetry (%) 04/07/19 04/07/19 04/07/19 06:48 09:00 10:00 Temperature 98.2 F 99.5 F Pulse Rate 112 H 115 H Respiratory 20 20 20 Rate Blood Pressure 180/88 H 159/104 H O2 Sat by Pulse 100 Oximetry (%) 04/07/19 04/07/19 04/07/19 10:35 14:09 16:30 Temperature 99.5 F 98.2 F 98.5 F Pulse Rate 115 H 112 H 107 H Respiratory 20 20 20 Rate Blood Pressure 159/104 H 139/96 135/84 O2 Sat by Pulse Oximetry (%) WBC 12.9 K/mm3 (4.0-10.0) H 04/08/19 05:00 RBC 5.23 M/mm3 (4.00-5.60) 04/08/19 05:00 Hgb 16.4 GM/dL (11.7-16.9) 04/08/19 05:00 Hct 46.7 % (35.4-49) 04/08/19 05:00 MCV 89.3 fl (80-96) 04/08/19 05:00 MCHC 35.0 g/dl (32.0-35.9) 04/08/19 05:00 RDW 13.9 % (11.9-15.9) 04/08/19 05:00 Plt Count 215 K/MM3 (134-434) 04/08/19 05:00 MPV 10.1 fl (7.5-11.1) 04/08/19 05:00 CMP Sodium 133 mmol/L (136-145) L 04/08/19 05:00 Potassium 3.7 mmol/L (3.5-5.1) 04/08/19 05:00 Chloride 98 mmol/L (98-107) 04/08/19 05:00 Carbon Dioxide 26 mmol/L (21-32) 04/08/19 05:00 Anion Gap 9 MMOL/L (8-16) 04/08/19 05:00 BUN 12.2 mg/dL (7-18) 04/08/19 05:00 Creatinine 0.5 mg/dL (0.55-1.3) L 04/08/19 05:00 Random Glucose 86 mg/dL (74-106) 04/08/19 05:00 Calcium 9.2 mg/dL (8.5-10.1) 04/08/19 05:00 Total Bilirubin 0.8 mg/dL (0.2-1) 04/06/19 06:30 AST 18 U/L (15-37) 04/06/19 06:30 ALT 18 U/L (13-61) 04/06/19 06:30 Alkaline Phosphatase 55 U/L (45-117) 04/06/19 06:30 Total Protein 7.0 g/dl (6.4-8.2) 04/06/19 06:30 Albumin 3.8 g/dl (3.4-5.0) 04/06/19 06:30 GENERAL: The patient is awake, alert, and fully oriented, in no acute distress. HEAD: Normal with no signs of trauma. EYES: PERRL, extraocular movements intact, sclera anicteric, conjunctiva clear. No ptosis. ENT: Ears normal, nares patent, oropharynx clear without exudates, moist mucous membranes. NECK: Trachea midline, full range of motion, supple. LUNGS: Breath sounds equal, clear to auscultation bilaterally, no wheezes, no crackles, no accessory muscle use. HEART: Regular rate and rhythm, S1, S2 without murmur, rub or gallop. ABDOMEN: Soft, mild tenderness, no Bowel sounds , positive for abdominal cover, no guarding, no rebound, no hepatosplenomegaly, no masses. EXTREMITIES: 2+ pulses, warm, well-perfused, no edema. NEUROLOGICAL: Cranial nerves II through XII grossly intact. Normal speech, gait not observed. PSYCH: Normal mood, normal affect. SKIN: Warm, dry, normal turgor, no rashes or lesions noted Active Medications Generic Name Dose Route Start Last Admin Trade Name Freq PRN Reason Stop Dose Admin Acetaminophen 650 mg 04/05/19 12:30 04/07/19 06:36 Tylenol - PO Not Given Q6H CHEKO Alvimopan 12 mg 04/05/19 07:00 04/07/19 10:12 Entereg Capsule (Restricted) - PO 12 mg BID CHEKO Administration Amlodipine Besylate 10 mg 04/06/19 11:13 04/07/19 10:11 Norvasc - PO 10 mg DAILY CHEKO Administration Heparin Sodium (Porcine) 5,000 unit 04/05/19 22:00 04/07/19 10:11 Heparin - SQ 5,000 unit BID CHEKO Administration Lactated Ringer's 1,000 ml in 1,000 mls @ 125 mls/hr 04/07/19 12:00 Lactated Ringers Solution IV ASDIR CHEKO Ondansetron HCl 4 mg 04/05/19 12:16 04/05/19 12:30 Zofran Injection IVPUSH 4 mg Q6H PRN Administration NAUSEA AND/OR VOMITING Ondansetron HCl 4 mg 04/05/19 12:21 Zofran Injection IVPUSH Q6H PRN NAUSEA AND/OR VOMITING Oxycodone HCl 5 mg 04/07/19 11:55 Roxicodone - PO Q4H PRN PAIN LEVEL 1-5 Oxycodone HCl 10 mg 04/07/19 11:55 Roxicodone - PO Q4H PRN PAIN LEVEL 6-10 ASSESSMENT AND PLAN: Patient is a 48 y/o man with h/o untreated HTN, recent diagnosis of diverticulitis and abscess formation s/p colectomy and Aguilar procedure, who presented for reversal. # HTN Uncontrolled: added Norvasc, will add Lisinopril to monitor further , low salt diet. # POD 3: s/p Aguilar reversal . DVT PX: SCDS and Heparin sq
[2019-04-08] MEDS: LACTATED RINGERS SOLUTION 1,000 ML/1,000 ML INFUS.BAG IV SCH (19:58)
[2019-04-08] MEDS: oxyCODONE HCL 5 MG TABLET PO PRN (21:18)
[2019-04-09] MEDS: oxyCODONE HCL 5 MG TABLET PO PRN (06:11)
--- NOTE | 2019-04-09 08:50 | PN ---
Progress Note (short form) - Note Progress Note: Surgery POD#4 hartmans reversal. Pt states he is feeling much better. He reports having several watery BMs and is passing gas. He is tolerating his clears and denies any CP SOB, N/V, fever and chills. Vital Signs Temp 98.4 F 04/09/19 06:18 Pulse 100 H 04/09/19 06:18 Resp 20 04/09/19 06:18 BP 118/76 04/09/19 06:18 Pulse Ox 98 04/08/19 09:00 Intake & Output 04/08/19 04/08/19 04/09/19 11:59 23:59 11:59 Intake Total 240 800 Output Total 530 650 Balance -290 150 Intake: IV 800 LACTATED RINGERS SOLUTION 800 1,000 ml In 1,000 ml @ 125 mls/hr IV ASDIR CHEKO Rx#:[id number] IVPB 0 Oral 240 Output: Drainage 30 50 Abdomen 30 50 Urine 500 600 Void 500 600 Other: Voiding Method Urinal Toilet # Unmeasured Voids Void 2 Bowel Movement No No # Bowel Movements 0 GEN: A&0x3, NAD ABD: soft, non-distended, inc tenderness. Inc dressing changed today. midline incision with packing. No drainage/fascia intact. Ostomy site/clean and without purulent drainage/fascia intact. Drain secure in RLQ with low output Problem List - Problems (1) History of colostomy reversal Assessment/Plan: A/p: 48 yo male s/p hartamns reversal with TAYLOR, with bowel function coming back. -start soft diet now -DVT ppx with heparin SQ/OOB and ambulate -Oral pain medications -D/w Dr. Boo -VNS ordered in anticipation of discharge planning. Dressing care instructions written for daily dressing changes. Code(s): Z98.890 - OTHER SPECIFIED POSTPROCEDURAL STATES
[2019-04-09] MEDS: amLODIPine BESYLATE 10 MG TABLET (FP) PO SCH (09:11)
[2019-04-09] MEDS: LISINOPRIL 20 MG TABLET (FP) PO SCH (09:11)
[2019-04-09] MEDS: HEPARIN NA (PORCINE) 5,000 UNITS/ML 1ML VIAL SQ SCH (09:11)
--- NOTE | 2019-04-09 13:40 | PN ---
Progress Note (short form) - Note Progress Note: Attending Surgeon POD #4 No c/o; having flatus and BM VSS AF abdo-soft; NT; wounds healing by secondary intention; drain serous WBC12.9 IMP: doing well PLAN: Drain removed; LWC rendered; may be d/c'ed to outpatient f/u next week w/ VNS. Archie Boo MD FACS
--- NOTE | 2019-04-09 15:01 | DS ---
"Physical Exam: SUBJECTIVE: Patient seen and examined. Pt states he is feeling much better. He reports having several watery BMs and is passing gas. He is tolerating his clears and denies any CP SOB, N/V, fever and chills. OBJECTIVE: Vital Signs Period Temp Pulse Resp BP Sys/Yañez Pulse Ox Last 24 Hr 98.1 F-98.8 F 100-107 20-20 108-134/71-90 98 PHYSICAL EXAM GEN: A&0x3, NAD ABD: soft, non-distended, inc tenderness. Inc dressing changed today. midline incision with packing. No drainage/fascia intact. Ostomy site/clean and without purulent drainage/fascia intact. Drain secure in RLQ with low output LABS CBC, BMP 04/08/19 05:00 04/08/19 05:00 HOSPITAL COURSE: The patient was admitted to the Med-Surg Unit after an elective repair of his diverticulitis. Now, s/p hartmans reversal, lysis of adhesions. The day of surgery, medical consult was obtained for assistance with patient's hypertension. EKG was obtained and was normal, a new anti-hypertensive regimen was put in place by the hospitalists and patient's blood pressure stabilized. The following day the hernandez catheter was removed and patient passed a trial of void. Za-operative IV ABX were administered. Patient ambulated without issue. Narcotic and non-narcotic pain management control was achieved with an oral and IV approach. The patient was maintained on Entereg until his bowel function returned on POD3. The patient tolerated a soft diet on POD4. Daily dressing changes were completed with Iodoform packing. POD #4, the surgical drain was removed fully intact and without incident. DVT prophylaxis was achieved with Heparin SQ TID, SCDs and early ambulation. Narcotic scripts were checked with [facility] prior to escribe. The discharge instructions and an oral pain management plan were reviewed with the patient. All questions answered. Above plan discussed with Dr. Boo and agreed. Date of Admission:04/05/19 Date of Discharge: 04/09/19 Minutes to complete discharge: 25 Discharge Summary Reason For Visit: S/P DIVERTICULITIS W/PERFORATION Current Active Problems History of colostomy reversal (Acute) Condition: Good - Instructions Diet, Activity, Other Instructions: Dr. Boo Discharge Instructions Dear VIVIAN HERRERA, Post Operative Instructions Physical activity Resume your normal everyday activity as tolerated no heavy lifting or exercise until seen by your surgeon. You may walk unlimited amounts of and climb stairs. You may resume driving the car when you feel safe and comfortable behind the wheel. Wound care VNS for wound care to midline incisin and previous ostomy site. Daily dressing change with wet to dry iodoform packing. Irrigate wound with normal saline, pack open edges with iodoform packing and cover with 4x4 gauze/abdominal pad. May shower. Diet There are no dietary restrictions. Eat healthy, high-fiber foods. Drink 6 to 8 glasses of liquid each day. This will assist in keeping your bowels are regular. Pain management You may take Tylenol or acetaminophen or Ibuprofen (for example, Motrin, Advil etc.) Any pain prescription medication ordered should be taken as prescribed for moderate to severe pain. Call Dr. Boo for any of the following: Severe pain not relieved by medication Fever of 101 or higher Excessive bleeding or drainage on dressing Inability to urinate Call the office at [phone] for a post operative appointment in 7 - 10 days. This report was requested by: Cata Garcia | Reference #: [id number] Disposition: VNS/HOME HEALTH CARE - Home Medications Comprehensive Discharge Medication List: Ambulatory Orders oxyCODONE HCL [Roxicodone -] 5 mg PO Q4H PRN 7 Days #20 tablet MDD 6 04/09/19 This patient is new to me today: Yes Date on this admission: 04/14/19 Emergency Visit: No Critical Care patient: No - Discharge Referral Referred to [facility] No"
[2019-04-09 15:06] VITALS: TEMP 98.3
[2019-04-09 16:53] VITALS: BP 136/86; PULSE 103
--- NOTE | 2019-04-14 13:58 | OP ---
DATE OF OPERATION: 04/05/2019 PREOPERATIVE DIAGNOSIS: Status post Carissa procedure for perforated sigmoid diverticulitis. POSTOPERATIVE DIAGNOSIS: Status post Carissa procedure for perforated sigmoid diverticulitis. PROCEDURE: Exam under anesthesia, rigid proctosigmoidoscopy, and colocolostomy (reversal of Carissa procedure). SURGEON: Archie Boo MD CREAM SEPARATOR OPERATOR: Cata Garcia PA-C ANESTHESIA: General. OPERATIVE FINDINGS: There were adhesions from previous surgery and unremarkable findings on rigid proctosigmoidoscopy. The rest of the findings were unremarkable. PROCEDURE: The patient was placed on the operating room table in the supine position and after the induction of general anesthesia a Ng catheter was placed and a timeout was taken. Rigid proctosigmoidoscopy was carried out to 16 cm and the previously-noted findings were observed. Next the abdomen and perineum were prepped with ChloraPrep and draped in a sterile fashion. A scalpel was used to excise the previous midline abdominal scar. The abdomen was then entered under direct vision and the previously noted findings were observed. Adhesions of omentum to the abdominal wall were taken down using a combination of blunt and sharp dissection. The distal sigmoid was identified without difficulty and mobilized using a combination of blunt and sharp dissection. Previous stay sutures that had been placed to identify the distal rectal stump were excised. Next, the colostomy was taken down and brought through the abdominal wall. The end of the colostomy was excised after it was stapled with a ZOILA stapling device. This was sent to Pathology. Next a pursestring suture device was placed proximally to the ZOILA staple line and fired and then the ZOILA staple line excised. Next, sizers were used to determine the size of the EEA stapling device and it was decided upon a number 28 EEA stapling device. The proximal sigmoid and left colon were mobilized along the white line of Toldt so that the colon would reach down into the pelvis to the distal rectal stump without tension. At this point the anvil was placed in the proximal colon and the pursestring suture tied. Next the EEA device was introduced through the rectum and the proximal colon brought down and connected to the EEA and the instrument closed and fired to complete the end-to-end anastomosis. The pelvis was then filled with saline and air was insufflated through the rectum without evidence of a leak. All irrigation was sucioned carried out to and hemostasis was checked for and noted to be good. At this point instruments, gowns and gloves were changed and a separate closing tray was used to close the old colostomy site using continuous 0-Prolene suture. Next the midline wound was closed using continuous 0-looped Maxon. The subcutaneous tissue at the colostomy site and the midline incision were copiously irrigated and checked for hemostasis. The skin around the umbilicus was reapproximated with surgical ladan as well as a few loosely-placed ladan in the midline wound and in the skin of the colostomy site. Both wounds were packed with 1/2-inch iodoform gauze and covered with dry sterile dressings. A 10-mm David-Peralta drain was placed in the pelvis prior to closure of the abdomen and brought out through a separate stab wound in the lateral abdomen and the drain secured to the skin with 2-0 silk suture. A Biopatch was placed around the drain site and the drain connected to bulb self suction. At this point the patient was aroused from general anesthesia and transferred to the postanesthesia care unit in stable condition, awake and alert. ESTIMATED BLOOD LOSS: 50 mL. REPLACEMENT: Crystalloid 1700 mL. SPECIMENS: Old colostomy site and skin scar to Pathology. I, Archie Boo, was physically present in the operating room from the time the patient was placed on the operating room table until he was transferred to the postanesthesia care unit in my accompaniment. MD KOLTON Mojica/[id number] MTDD
== END 2019-04-09 16:50 | disposition home health service (06) | DRG 331 ==
LOC: JSAMEDAYSX 04-05 05:19 → J8W 04-05 14:51
PROVIDERS: ADMIT Surgery; ATTEND Surgery
PROC: 0D1N0Z4 Bypass Sigmoid Colon to Cutaneous, Open Approach (ICD-10-PCS; 2019-04-05)
PROC: 0DNW0ZZ Release Peritoneum, Open Approach (ICD-10-PCS; 2019-04-05)
PROC: 0DTN0ZZ Resection of Sigmoid Colon, Open Approach (ICD-10-PCS; 2019-04-05)
PROC: 0DJD8ZZ Inspection of Lower Intestinal Tract, Via Natural or Artificial Opening Endoscopic (ICD-10-PCS; 2019-04-05)
PROC: 0DSN0ZZ Reposition Sigmoid Colon, Open Approach (ICD-10-PCS; principal; 2019-04-05 08:00)
DX: K57.20 Diverticulitis of large intestine with perforation and abscess without bleeding (principal); F41.9 Anxiety disorder, unspecified; R00.0 Tachycardia, unspecified; I10 Essential (primary) hypertension; K66.0 Peritoneal adhesions (postprocedural) (postinfection); E87.6 Hypokalemia; Z98.890 Other specified postprocedural states; Z87.891 Personal history of nicotine dependence
CPT/HCPCS: 36415; 80048; 80053; 83735; 84100; 85025; 85027; 88304-TC; 93005; 93010; 94760; J0131; J1644; J7030